=== PATIENT | female | born 1950 | race Caucasian/White ===

== ENCOUNTER → 2018-03-19 | Emergency (ER) | payer MEDICARE ==
[~2018-03-19] VITALS: Ht 162.6 cm; Wt 68.0 kg
[~2018-03-19] MED LIST: ASPIRIN81 MG PO; FAMOTIDINE 20 MG/2 ML VIAL IV STA; LIPITOR10 MG PO; LISINOPRIL10 MG PO; MAGNESIUM/ALUMINUM/SIMETHICONE 30 ML UDC PO ONE; MORPHINE SULFATE 2 MG/ML SYR ONE; MORPHINE SULFATE 4 MG/ML SYR IV ONE; ONDANSETRON HCL INJ 2 MG/ML VIAL IV STA; SODIUM CHLORIDE 0.9% 1000ML 1,000 ML IV ONE; SUCRALFATE 1 GM TAB PO NR
[2018-03-19 13:25] LABS: BASOPHILS % 0.3 % (0.0-1.0); EOSINOPHILS # (AUTO) 0.1 (0.0-0.4); EOSINOPHILS % 0.8 % (0.0-6.0); HEMATOCRIT 35.2 % (34.2-44.1); LYMPHOCYTES # (AUTO) 1.4 (1.0-3.2); LYMPHOCYTES % 13.7 % (18.0-39.1); MEAN CORPUSCULAR HEMOGLOBIN 27.3 pg (28-32); MEAN CORPUSCULAR HGB CONC 33.8 g/dL (31-35); MEAN CORPUSCULAR VOLUME 80.7 fL (81-99); MONOCYTES # (AUTO) 0.8 (0.2-0.8); NEUTROPHILS # (AUTO) 7.9 (2.1-6.9); NEUTROPHILS % 76.9 % (38.7-80.0); PLATELET COUNT 289 x10e3/uL (140-360); RED BLOOD COUNT 4.36 x10e6/uL (3.6-5.1); RED CELL DISTRIBUTION WIDTH 15.7 % (11.7-14.4)
[2018-03-19 13:29] LABS: HEMOGLOBIN 11.9 g/dL (12.0-16.0); INR 1.13; PROTHROMBIN TIME 13.6 seconds (11.9-14.5)
[2018-03-19 13:40] LABS: ALBUMIN 2.8 g/dL (3.5-5.0); ALBUMIN/GLOBULIN RATIO 0.6 (0.8-2.0); ANION GAP 13.7 mmol/L (8-16); CALCIUM 9.7 mg/dL (8.4-10.2); CREATININE, SERUM 1.12 mg/dL (0.57-1.11); POTASSIUM 3.7 mmol/L (3.5-5.1)
--- NOTE | 2018-03-19 14:09 | Diagnostic Imaging Report ---
PROCEDURE:X-RAY ABDOMEN, ACUTE SERIES COMPARISON:Patients [facility], DX, CHEST SINGLE (PORTABLE), 04/28/2017, 9:16. [facility], CT, CT ABDOMEN/PELVIS W, 04/26/2017, 20:11. INDICATIONS:abdomen pain, epigastric pain FINDINGS: BOWEL GAS PATTERN:Non-specific bowel gas pattern. No dilated, air-filled loops of bowel. FREE AIR:None. CALCIFICATIONS:No calcifications overlie the renal shadows or expected course of the ureters or bladder. Left pelvic phleboliths. Vascular calcifications. LUNGS:Stable. 8mm calcified granuloma in the left lower lung. No consolidation or effusion. MEDIASTINUM:Cardiac silhouette is upper limit of normal to borderline enlarged. Atherosclerotic calcification of the aortic arch. Pulmonary vasculature is normal. PLEURA:No effusion, or pneumothorax. OTHER:No acute bony abnormalities. Mild degenerative changes in bilateral hip joints. Rightward curvature of the thoracic spine, which may be positional. CONCLUSION: 1. Nonobstructive bowel gas pattern. No air-filled, dilated loops of bowel. 2. Upper limit of normal to borderline enlarged cardiac silhouette. Essentially clear lungs. Bandar Hernandez M.D. Dictated by: Bandar Hernandez M.D. on 03/19/2018 at 14:12 Electronically approved by: Bandar Hernandez M.D. on 03/19/2018 at 14:12
[2018-03-19 15:43] VITALS: BP 154/75
== END | disposition home or self-care (01) ==
LOC: ER 11:47
CPT/HCPCS: 36415; 74022; 80053; 83690; 84484; 85025; 85610; 93005; 99284; J2270; J7030

== ENCOUNTER 2018-04-29 13:41 | Emergency (ER) | payer MEDICARE ==
[~2018-04-29] VITALS: Ht 162.6 cm; Wt 68.0 kg
[~2018-04-29 13:41] MED LIST changes: -FAMOTIDINE 20 MG/2 ML VIAL IV STA; -MAGNESIUM/ALUMINUM/SIMETHICONE 30 ML UDC PO ONE; -MORPHINE SULFATE 2 MG/ML SYR ONE; -MORPHINE SULFATE 4 MG/ML SYR IV ONE; -ONDANSETRON HCL INJ 2 MG/ML VIAL IV STA; -SODIUM CHLORIDE 0.9% 1000ML 1,000 ML IV ONE; -SUCRALFATE 1 GM TAB PO NR
[2018-04-29] MEDS ORDERED: ONDANSETRON HCL INJ 2 MG/ML VIAL IV STA (18:34)
[2018-04-29 18:39] LABS: BASOPHILS # (AUTO) 0.1 (0.0-0.1); BASOPHILS % 0.6 % (0.0-1.0); EOSINOPHILS # (AUTO) 0.2 (0.0-0.4); HEMATOCRIT 40.5 % (34.2-44.1); HEMOGLOBIN 13.7 g/dL (12.0-16.0); LYMPHOCYTES # (AUTO) 1.9 (1.0-3.2); LYMPHOCYTES % 23.4 % (18.0-39.1); MEAN CORPUSCULAR HEMOGLOBIN 27.7 pg (28-32); MEAN CORPUSCULAR HGB CONC 33.8 g/dL (31-35); MEAN CORPUSCULAR VOLUME 81.8 fL (81-99); MONOCYTES # (AUTO) 0.4 (0.2-0.8); MONOCYTES % 5.6 % (4.4-11.3); NEUTROPHILS # (AUTO) 5.4 (2.1-6.9); PLATELET COUNT 383 x10e3/uL (140-360); RED BLOOD COUNT 4.95 x10e6/uL (3.6-5.1); RED CELL DISTRIBUTION WIDTH 15.4 % (11.7-14.4)
[2018-04-29 18:42] LABS: CLARITY,URINE SL CLOUDY (CLEAR); COLOR,URINE YELLOW (YELLOW); LEUKOCYTE ESTERASE ,URINE TRACE (NEGATIVE); NITRITE,URINE POSITIVE (NEGATIVE); PROTEIN,URINE DIPSTICK 1+ (NEGATIVE)
[2018-04-29 18:43] LABS: BILIRUBIN,URINE NEGATIVE (NEGATIVE); KETONES,URINE TRACE (NEGATIVE); URINE UROBILINOGEN 0.2 mg/dL (0.2 - 1)
[2018-04-29 18:54] LABS: BACTERIA,URINE MANY /HPF; EPITHELIAL CELLS,URINE RARE /LPF; MUCUS,URINE FEW (RARE); WBC,URINE (MAN) 21-50 /HPF (0-5)
[2018-04-29 18:55] LABS: ALBUMIN 3.6 g/dL (3.5-5.0); ALBUMIN/GLOBULIN RATIO 0.9 (0.8-2.0); ANION GAP 16.2 mmol/L (8-16); CHOL/HDL RATIO 5.7 (3.0-3.6); CREATININE, SERUM 1.24 mg/dL (0.57-1.11); POTASSIUM 4.2 mmol/L (3.5-5.1)
[2018-04-29 19:01] LABS: CREATINE KINASE MB 0.8 ng/mL (0-5.0)
[2018-04-29] MEDS ORDERED: MORPHINE SULFATE 2 MG/ML SYR IV STA (19:40)
[2018-04-29] MEDS ORDERED: DICYCLOMINE HCL 20 MG/2 ML VIAL IM ONE (19:45)
[2018-04-29] MEDS ORDERED: PANTOPRAZOLE 40 MG 10ML VIAL IV STA (20:01)
[2018-04-29] MEDS ORDERED: CEFTRIAXONE SOD 1 GM VIAL IV ONE (20:15)
--- NOTE | 2018-04-29 21:32 | Diagnostic Imaging Report ---
EXAM: Right Upper Quadrant Ultrasound INDICATION: Right upper quadrant pain. COMPARISON: None. TECHNIQUE: Transverse and longitudinal images of the right upper abdomen were obtained. FINDINGS: Liver: Size: 13 cm in the right midclavicular line, normal Appearance: Normal echogenicity, smooth contour Mass: No focal masses Gallbladder: Stones/Sludge: Small amount of sludge noted in the most dependent portion and appears mobile Wall: 0.3 cm Appearance: No wall thickening, pericholecystic fluid or hydrops. Sonographic Alvarez's Sign: Negative Bile Ducts: Intrahepatic Ducts: No dilatation Extrahepatic Ducts: Common bile duct measures 0.4 cm, no dilatation Pancreas: Incompletely visualized due to overlying bowel gas, but no abnormality identified involving the visualized portions of the pancreas. Kidneys: Length: Right 8.6 cm Echogenicity: Normal Collecting System: No hydronephrosis Stone: None Cyst/Mass: None Vessels: Aorta: Visualized portions are normal Inferior Vena Cava: Visualized portions are normal Main Portal Vein: 1.0 cm, normal size with hepatopetal flow. Free Fluid: No ascites or pleural effusion IMPRESSION: 1. Gallbladder sludge. 2. Otherwise unremarkable right upper quadrant ultrasound Signed by: Dr. Fred Flores M.D. on 04/29/2018 9:29 PM
--- OUTSIDE RECORDS SUMMARY | 2018-08-07 14:34 | XMS REPORT ---
Author Author [facility] Address Unknown Phone Unavailable Care Team Providers Care Quality Review Trainer Name Role Phone NAHOMY KRISHNAMURTHY Unavailable Unavailable PATRICK BRADLEY Unavailable Unavailable JIMMY DOBBINS Unavailable Unavailable Problems This patient has no known problems. Allergies, Adverse Reactions, Alerts This patient has no known allergies or adverse reactions. Medications This patient has no known medications. Results Test Description Test Time Test Comments Text Results Atomic Results Result Comments HEPTOBILIARY W PHARM 2018-05-07 19:08:00 [place] [address] Patient Name: STEFAN IRIZARRY MR #: [id number] : 1950 Age/Sex: 68/F Req #: [id number] Adm Physician: NAHOMY KRISHNAMURTHY MD Ordered by : NAHOMY KRISHNAMURTHY MD Report #: [id number] Location: MED/SURG3 Room/Bed: [facility] Procedure: [id number] NM/HEPTOBILIARY W PHARM Exam Date: Exam Time: REPORT STATUS: Signed Hepatobiliary Scan with Gallbladder Ejection Fraction Clinical information : 68 F with biliary colic and severe abdominal pain x2 weeks with nausea and bloating. Gallbladder sludge seen on abdominal ultrasound 04/29/2018. Technique: Following intravenous administration of 7 millicuries of Tc-99m mebrofenin, dynamic images of the abdomen in the anterior projection were obtained through 60 minutes. Sincalide (CCK analog) 1.4 micrograms was administered intravenously over 30 minutes with additional imaging for determination of gallbladder ejection fraction. Discussion: Perfusion of the liver is normal. Extraction of tracer by the liver parenchyma is normal. Tracer appears promptly within the biliary tract. The gallbladder begins to fill at 16 minutes post injection of tracer and fills adequately. Tracer is seen in the small bowel promptly during the sincalide infusion. There is no contractile response by the gallbladder to the pharmacologic dose of sincalide. No emptying of the gallbladder occurs during the 30 minute infusion. Impression: 1. Filling of the gallbladder excludes acute cystic duct obstruction/acute cholecystitis. 2. The gallbladder ejection fraction is undefined as there is no emptying of the gallbladder during the infusion of sincalide. This absence of a contractile response to sincalide supports the clinical diagnosis of chronic cholecystitis/ gallbladder dyskinesia. Signed by: Dr. Mauro Purvis M.D. on 05/07/2018 7:10 PM Dictated By: MAURO PURVIS MD 09 Transcribed By: KEYA on 05/07/181909 COPY TO: NAHOMY KRISHNAMURTHY MD CT ABDOMEN/PELVIS W 2018-05-06 20:48:00 [place] [address] Patient Name: STEFAN IRIZARRY MR #: [id number] : 1950 Age/Sex: 68/F Req #: [id number] Adm Physician: NAHOMY KRISHNAMURTHY MD Ordered by : KEO JASSO MD Report #: [id number] Location: [facility] Room/Bed: [place] [address] Procedure: [id number] CT/CT ABDOMEN/PELVIS W Exam Date: 05/06/18 Exam Time: 2009 REPORT STATUS: Signed CT Abdomen And Pelvis with Intravenous Contrast INDICATION: Upper abdominal pain and nausea for 2 weeks TECHNIQUE: Thin collimation axial images obtained from the diaphragm to the level of the pubic symphysis following the uneventful administration of 100 and cc of low osmolar, nonionic intravenous contrast. RADIATION DOSE: Total DLP: 303.21 mGy*cm Estimated effective dose: (DLP x 0.015 x size factor) mSv CTDIvol has been reviewed. It is below the limits set by the Radiation Protocol Committee (RPC). COMPARISON: CT abdomen/pelvis 04/26/2017. Right upper quadrant ultrasound 04/29/2018 ABDOMEN FINDINGS: Lung Bases: Calcified granuloma in the right lower lobe measures 7 mm. There is bibasilar subsegmental atelectasis. Visualized portion of the mediastinum demonstrates moderate burden of coronary artery calcification. Liver: Normal attenuation. Multiple low attenuating lesions throughout the parenchyma measure up to 6 mm and are stable. Gallbladder: Present and appears normal.. No biliary ductal dilatation. Pancreas: Mild fatty atrophy. No mass or ductal dilatation. Spleen: Normal size and contains calcified granulomata. Adrenal Glands: No evidence for mass. Kidneys: Right: Normal enhancement. Lower pole cyst is stable. No enhancing mass. No hydronephrosis. Left: No enhancing mass. A cyst may be developing in the lower pole measuring 3 mm. No hydronephrosis. Lymph Nodes: No lymphadenopathy. Aorta: Fusiform dilatation of the infrarenal aorta measures 2.7 x 3.0 cm and is stable. There are diffuse calcifications throughout the aorta. PELVIS FINDINGS: Bowel: Stomach: Normal in caliber with normal wall thickness. Small Bowel: Normal in caliber with normal wall thickness. Large Bowel: Moderate stool burden in the large bowel. No focal mural thickening or pericolonic inflammation. Appendix: Not visualized and may be absent or collapsed. Bladder: Normal. The uterus is absent. No adnexal masses. No free fluid or fluid collection. Bones: Grade 1 retrolisthesis of L1 on L2 is stable. Mild degenerative changes of L1-2 are stable. Calcified Schmorl's node in the superior endplate of T11 is stable. Soft tissues: Unremarkable. IMPRESSION: 1. No evidence for bowel obstruction or inflammation. Moderate burden of stool in the large bowel may be the result of constipation. 2. Stable low attenuating hepatic lesions. 3. Stable infrarenal aortic aneurysm. 4. Healed granulomatous inflammation. Signed by: Dr. Loreta Jackman MD on 05/06/2018 8:54 PM Dictated By: LORETA JACKMAN MD 53 Transcribed By: KEYA on 12/23 COPY TO: KEO JASSO MD US GALLBLADDER 2018-04-29 21:27:00 [place] [address] Patient Name: STEFAN IRIZARRY MR #: [id number] : 1950 Age/Sex: 68/F Req #: [id number] Adm Physician: Ordered by: BEN VIVAS MD Report #: [id number] Location: ER Room/Bed: ___ Procedure: [id number] US/US GALLBLADDER Exam Date: 04/29/18 Exam Time: 2035 REPORT STATUS: Signed EXAM: Right Upper Quadrant Ultrasound INDICATION: Right upper quadrant pain. COMPARISON : None. TECHNIQUE: Transverse and longitudinal images of the right upper abdomen were obtained. FINDINGS: Liver: Size: 13 cm in the right midclavicular line, normal Appearance: Normal echogenicity, smooth contour Mass: No focal masses Gallbladder: Stones/Sludge: Small amount of sludge noted in the most dependent portion and appears mobile Wall: 0.3 cm Appearance: No wall thickening, pericholecystic fluid or hydrops. Sonographic Alvarez's Sign: Negative Bile Ducts: Intrahepatic Ducts: No dilatation Extrahepatic Ducts: Common bile duct measures 0.4 cm, no dilatation Pancreas: Incompletely visualized due to overlying bowel gas, but no abnormality identified involving the visualized portions of the pancreas. Kidneys: Length: Right 8.6 cm Echogenicity: Normal Collecting System: No hydronephrosis Stone: None Cyst/Mass: None Vessels: Aorta: Visualized portions are normal Inferior Vena Cava: Visualized portions are normal Main Portal Vein: 1.0 cm, normal size with hepatopetal flow. Free Fluid: No ascites or pleural effusion IMPRESSION: 1. Gallbladder sludge. 2. Otherwise unremarkable right upper quadrant ultrasound Signed by: Dr. Fred Flores M.D. on 04/29/2018 9:29 PM Dictated By: FRED CRESPO MD 28 Transcribed By: KEYA on 04/29/182128 COPY TO: BEN VIVAS MD ABDOMEN ACUTE SERIES W/PA CXR [place] [address] Patient Name: STEFAN IRIZARRY MR #: [id number] : 1950 Age/Sex: 67/F Req #: [id number] Adm Physician: Ordered by: JIMMY DOBBINS MD Report #: [id number] Location: ER Room/Bed: Procedure: [id number] DX/ABDOMEN ACUTE SERIES W/PA CXR Exam Date: Exam Time: REPORT STATUS: Signed PROCEDURE: X-RAY ABDOMEN, ACUTE SERIES COMPARISON: [facility], DX, CHEST SINGLE (PORTABLE), 04/28/2017, 9:16. [facility], CT, CT ABDOMEN/ PELVIS W, 04/26/2017, 20:11. INDICATIONS: abdomen pain, epigastric pain FINDINGS: BOWEL GAS PATTERN: Non-specific bowel gas pattern. No dilated, air-filled loops of bowel. FREE AIR: None. CALCIFICATIONS: No calcifications overlie the renal shadows or expected course of the ureters or bladder. Left pelvic phleboliths. Vascular calcifications. LUNGS : Stable. 8mm calcified granuloma in the left lower lung. No consolidation or effusion. MEDIASTINUM: Cardiac silhouette is upper limit of normal to borderline enlarged. Atherosclerotic calcification of the aortic arch. Pulmonary vasculature is normal. PLEURA: No effusion, or pneumothorax. OTHER: No acute bony abnormalities. Mild degenerative changes in bilateral hip joints. Rightward curvature of the thoracic spine, which may be positional. CONCLUSION: 1. Nonobstructive bowel gas pattern. No air- filled, dilated loops of bowel. 2. Upper limit of normal to borderline enlarged cardiac silhouette. Essentially clear lungs. Ismael Hernandez M.D. Dictated by: Ismael Hernandez M.D. on 03/19/2018 at 14:12 Electronically approved by: Ismael Hernandez M.D. on 2017 at 14:12 Dictated By: ISMAEL HERNANDEZ MD 1412 Transcribed By: JHONY on 1412 COPY TO: JIMMY DOBBINS MD
== END 2018-04-29 22:41 | disposition home or self-care (01) ==
LOC: ER 13:41
DX: R10.13 Epigastric pain (principal); R11.0 Nausea; N30.91 Cystitis, unspecified with hematuria; K80.50 Calculus of bile duct without cholangitis or cholecystitis without obstruction
CPT/HCPCS: 36415; 76705; 80053; 80061; 81001; 82150; 82550; 82553; 83605; 83690; 84484; 85025; 87086; 87186; 93005; 99284; J0500; J0696; J2270; J2405

== ENCOUNTER 2018-05-06 16:57 | Inpatient (IN) | payer MEDICARE ==
[~2018-05-06] VITALS: Ht 162.6 cm; Wt 63.0 kg
[2018-05-06 17:20] LABS: BASOPHILS # (AUTO) 0.1 (0.0-0.1); BASOPHILS % 0.6 % (0.0-1.0); EOSINOPHILS # (AUTO) 0.1 (0.0-0.4); EOSINOPHILS % 1.3 % (0.0-6.0); HEMATOCRIT 39.6 % (34.2-44.1); HEMOGLOBIN 13.4 g/dL (12.0-16.0); LYMPHOCYTES # (AUTO) 2.1 (1.0-3.2); LYMPHOCYTES % 26.3 % (18.0-39.1); MEAN CORPUSCULAR HEMOGLOBIN 27.6 pg (28-32); MEAN CORPUSCULAR HGB CONC 33.8 g/dL (31-35); MEAN CORPUSCULAR VOLUME 81.5 fL (81-99); MONOCYTES # (AUTO) 0.4 (0.2-0.8); NEUTROPHILS # (AUTO) 5.3 (2.1-6.9); NEUTROPHILS % 66.5 % (38.7-80.0); PLATELET COUNT 458 x10e3/uL (140-360); RED BLOOD COUNT 4.86 x10e6/uL (3.6-5.1); RED CELL DISTRIBUTION WIDTH 14.9 % (11.7-14.4)
[2018-05-06] MEDS ORDERED: PANTOPRAZOLE 40 MG 10ML VIAL IV STA (17:20)
[2018-05-06] MEDS ORDERED: ONDANSETRON HCL INJ 2 MG/ML VIAL IV STA (17:20)
[2018-05-06] MEDS ORDERED: MORPHINE SULFATE 2 MG/ML SYR IV STA (17:20)
[2018-05-06 17:23] LABS: CLARITY,URINE CLOUDY (CLEAR); COLOR,URINE YELLOW (YELLOW)
[2018-05-06 17:24] LABS: BILIRUBIN,URINE NEGATIVE (NEGATIVE); KETONES,URINE NEGATIVE (NEGATIVE); LEUKOCYTE ESTERASE ,URINE TRACE (NEGATIVE); NITRITE,URINE NEGATIVE (NEGATIVE); PROTEIN,URINE DIPSTICK TRACE (NEGATIVE); URINE UROBILINOGEN 0.2 mg/dL (0.2 - 1)
[2018-05-06 17:25] LABS: PREGNANCY TEST, URINE NEGATIVE (NEGATIVE)
[2018-05-06] MEDS ORDERED: HYDRALAZINE HCL 20 MG/ML VIAL IV STA (17:32)
[2018-05-06 17:35] LABS: ALBUMIN 3.9 g/dL (3.5-5.0); ANION GAP 13.9 mmol/L (8-16); CALCIUM 10.1 mg/dL (8.4-10.2); INR 1.05; POTASSIUM 3.9 mmol/L (3.5-5.1); PROTHROMBIN TIME 12.9 seconds (11.9-14.5)
[2018-05-06 17:36] LABS: PARTIAL THROMBOPLASTIN TIME 28.7 seconds (23.8-35.5)
[2018-05-06 17:41] LABS: BACTERIA,URINE RARE /HPF; EPITHELIAL CELLS,URINE RARE /LPF
[2018-05-06 17:41] LABS: AMYLASE 47 U/L (25-125); LIPASE 24 U/L (8-78)
[2018-05-06] MEDS ORDERED: ENALAPRILAT IV INJ 1.25 MG/ML VIAL IV STA (17:46)
[2018-05-06] MEDS ORDERED: FENTANYL CITRATE/PF 100MCG/2 ML INJ IV ONE (18:30)
[2018-05-06] MEDS ORDERED: PIPER-TAZ 3.375 GM 50 ML IV ONE (18:45)
[2018-05-06 18:47] LABS: CREATINE KINASE MB 1.1 ng/mL (0-5.0)
[2018-05-06] MEDS: SODIUM CHLORIDE 0.9% 1000ML 1,000 ML IV SCH ×2 (20:37→22:20)
--- NOTE | 2018-05-06 20:58 | Diagnostic Imaging Report ---
CT Abdomen And Pelvis with Intravenous Contrast INDICATION: Upper abdominal pain and nausea for 2 weeks TECHNIQUE: Thin collimation axial images obtained from the diaphragm to the level of the pubic symphysis following the uneventful administration of 100 and cc of low osmolar, nonionic intravenous contrast. RADIATION DOSE: Total DLP: 303.21 mGy*cm Estimated effective dose: (DLP x 0.015 x size factor) mSv CTDIvol has been reviewed. It is below the limits set by the Radiation Protocol Committee (RPC). COMPARISON: CT abdomen/pelvis 04/26/2017. Right upper quadrant ultrasound 04/29/2018 ABDOMEN FINDINGS: Lung Bases: Calcified granuloma in the right lower lobe measures 7 mm. There is bibasilar subsegmental atelectasis. Visualized portion of the mediastinum demonstrates moderate burden of coronary artery calcification. Liver: Normal attenuation. Multiple low attenuating lesions throughout the parenchyma measure up to 6 mm and are stable. Gallbladder: Present and appears normal.. No biliary ductal dilatation. Pancreas: Mild fatty atrophy. No mass or ductal dilatation. Spleen: Normal size and contains calcified granulomata. Adrenal Glands: No evidence for mass. Kidneys: Right: Normal enhancement. Lower pole cyst is stable. No enhancing mass. No hydronephrosis. Left: No enhancing mass. A cyst may be developing in the lower pole measuring 3 mm. No hydronephrosis. Lymph Nodes: No lymphadenopathy. Aorta: Fusiform dilatation of the infrarenal aorta measures 2.7 x 3.0 cm and is stable. There are diffuse calcifications throughout the aorta. PELVIS FINDINGS: Bowel: Stomach: Normal in caliber with normal wall thickness. Small Bowel: Normal in caliber with normal wall thickness. Large Bowel: Moderate stool burden in the large bowel. No focal mural thickening or pericolonic inflammation. Appendix: Not visualized and may be absent or collapsed. Bladder: Normal. The uterus is absent. No adnexal masses. No free fluid or fluid collection. Bones: Grade 1 retrolisthesis of L1 on L2 is stable. Mild degenerative changes of L1-2 are stable. Calcified Schmorl's node in the superior endplate of T11 is stable. Soft tissues: Unremarkable. IMPRESSION: 1. No evidence for bowel obstruction or inflammation. Moderate burden of stool in the large bowel may be the result of constipation. 2. Stable low attenuating hepatic lesions. 3. Stable infrarenal aortic aneurysm. 4. Healed granulomatous inflammation. Signed by: Dr. Joe Jackman MD on 05/06/2018 8:54 PM
[2018-05-06 21:00] VITALS: BP 104/60
[2018-05-06 21:30] VITALS: BP 104/60
[2018-05-06] MEDS ORDERED: PIPER-TAZ 3.375 GM / NS 50ML IV SCH (22:00)
[2018-05-06] MEDS: PIPER-TAZ 3.375 GM 50 ML IV SCH (22:20)
[2018-05-06] MEDS ORDERED: IOPAMIDOL 370 MG/ML 200 ML INFUS..BTL INJ ONE (22:36)
[2018-05-06] MEDS ORDERED: SODIUM CHLORIDE 0.9% 50ML 50 ML ONE (22:37)
[2018-05-07] VITALS (8 sets, daily range): BP systolic 114–165; BP diastolic 60–81
[2018-05-07] MEDS: MORPHINE SULFATE 2 MG/ML SYR IV PRN ×4 (00:23→18:18)
[2018-05-07] MEDS ORDERED: METOPROLOL SUCC25 MG PO (02:31)
[2018-05-07] MEDS ORDERED: CEFDINIR300 MG PO (02:34)
[2018-05-07] MEDS: PIPER-TAZ 3.375 GM 50 ML IV SCH ×3 (06:05→22:00)
[2018-05-07 06:27] LABS: BASOPHILS % 0.8 % (0.0-1.0); EOSINOPHILS # (AUTO) 0.2 (0.0-0.4); EOSINOPHILS % 4.1 % (0.0-6.0); HEMATOCRIT 33.7 % (34.2-44.1); LYMPHOCYTES % 20.2 % (18.0-39.1); MEAN CORPUSCULAR HEMOGLOBIN 27.6 pg (28-32); MEAN CORPUSCULAR HGB CONC 32.6 g/dL (31-35); MEAN CORPUSCULAR VOLUME 84.5 fL (81-99); MONOCYTES # (AUTO) 0.4 (0.2-0.8); MONOCYTES % 7.8 % (4.4-11.3); NEUTROPHILS # (AUTO) 3.5 (2.1-6.9); NEUTROPHILS % 66.9 % (38.7-80.0); PLATELET COUNT 315 x10e3/uL (140-360); RED BLOOD COUNT 3.99 x10e6/uL (3.6-5.1); RED CELL DISTRIBUTION WIDTH 14.9 % (11.7-14.4)
[2018-05-07 06:51] LABS: ALBUMIN 2.9 g/dL (3.5-5.0); ALBUMIN/GLOBULIN RATIO 1.1 (0.8-2.0); CALCIUM 8.6 mg/dL (8.4-10.2); CREATININE, SERUM 0.95 mg/dL (0.57-1.11)
[2018-05-07] MEDS: PANTOPRAZOLE 40 MG 10ML VIAL IV SCH (09:29)
[2018-05-07] MEDS: ASPIRIN 81 MG CHEW TAB PO SCH (11:00)
[2018-05-07] MEDS: METOPROLOL SUCCINATE 25 MG TAB XL PO SCH (11:00)
[2018-05-07] MEDS: LISINOPRIL 20 MG TAB PO SCH (11:00)
--- NOTE | 2018-05-07 11:00 | History and Physical ---
CHIEF COMPLAINT: Abdominal pain. HISTORY OF PRESENT ILLNESS: This is a 68-year-old white woman who presented to [facility] Emergency Room with a 6-week history of worsening abdominal pain. The patient states she actually has had abdominal pain for the last 6 months, but it has become much more persistent in the last 6 weeks. The patient states the pain has become unbearable last week. The patient underwent an abdominal ultrasound on April 29, 2018, which revealed gallbladder sludge, otherwise unremarkable. Yesterday in the emergency room, the patient underwent a CT of the abdomen and pelvis with intravenous contrast that was unremarkable, but it did reveal moderate burden of stool in the large bowel that may be the result of constipation. It also revealed a stable infrarenal aortic aneurysm. The patient denies any chest pain or tenderness. The patient states the pain is mainly in the mid-epigastric area and does radiate to her back. The patient does complain of bloating and states the pain worsens after eating. Blood work done in the emergency room was unremarkable. The patient's hepatic transaminases are within normal limits. The patient's first 2 sets of cardiac enzymes were normal, namely troponin I. The patient's amylase and lipase were 47 and 24 respectively. The patient was admitted for further evaluation and treatment. REVIEW OF SYSTEMS GENERAL: Weight has been stable. No fever or chills. HEENT: No headache. No vision changes. CARDIOVASCULAR: No chest pain. No shortness of breath or cough. GI: Mid-epigastric pain has been present for the last 6 months, but has been worse for the last 6 weeks. Denies any nausea or vomiting, but does complain of postprandial pain as well as bloating. : No UTI symptoms. NEUROMUSCULAR: No limb weakness or numbness. ALLERGIES: NO KNOWN DRUG ALLERGIES. PAST MEDICAL HISTORY 1. Coronary artery disease (2 coronary stents placed in 2011). 2. Carotid atherosclerosis (history of right carotid endarterectomy). 3. Hypertensive heart disease. 4. Hyperlipidemia. 5. History of cerebrovascular disease. 6. Tobacco abuse. 7. Chronic systolic congestive heart failure. 8. Non ST elevated myocardial infarction April 2017. SURGICAL HISTORY 1. Hysterectomy. 2. Right carotid endarterectomy. 3. Multiple coronary stent placement in 2011. FAMILY HISTORY: Her brother of a myocardial infarction at age 66. SOCIAL HISTORY: This woman is and lives with her . She does smoke tobacco. The patient states she drinks alcohol socially. Denies any illicit drug use. The patient states she is retired. HOME MEDICATIONS 1. Aspirin 81 mg daily. 2. Atorvastatin 10 mg nightly. 3. Omnicef 300 mg b.i.d. 4. Lisinopril 20 mg daily. 5. Metoprolol succinate 25 mg daily. PHYSICAL EXAMINATION GENERAL: She is awake, alert and fully oriented. Her is at bedside. VITAL SIGNS: Height is 5 feet 4 inches, weight 139 pounds, BMI 23. Blood pressure is 139/72. Pulse is 64. Respiratory rate is 22. Oxygen saturation is 97% on room air. Temperature is 97.3. INTEGUMENT: Skin is warm and dry. No pallor, jaundice or diaphoresis. HEENT: Anicteric sclerae with dry mucous membranes. The patient does have coarse facies. NECK: Supple. No evidence of jugular venous distention. CARDIOVASCULAR: Distant heart sounds. Regular rate and rhythm. LUNGS: No rales, no rhonchi, no wheezing. ABDOMEN: Soft. She has exquisite tenderness in the mid-epigastric area. Minimal tenderness in the right upper quadrant area. Negative Alvarez sign. EXTREMITIES: No edema or deformity. NEUROLOGIC: Intact. DIAGNOSES 1. Gallbladder sludge. 2. Biliary dyskinesia, likely. 3. Mid-epigastric pain, perhaps gastric ulcer. 4. Coronary artery disease (multiple coronary stents placed in 2011). 5. Tobacco abuse. 6. Hypertensive heart disease. 7. Chronic systolic congestive heart failure. 8. Non ST elevated myocardial infarction April 2017. PLAN 1. Myocardial infarction was ruled out. 2. Continue aspirin, PRECIOUS inhibitor and beta tabitha since the patient has a history of coronary artery disease. 3. Order HIDA scan to assess for biliary dyskinesia or chronic cholecystitis. 4. Discontinue telemetry. 5. Will discuss with surgery. 6. Continue intravenous pantoprazole. 7. Pain control. I spent 45 minutes in the care of this patient. Job#: [id number] MEDNEZ
[2018-05-07] MEDS: SODIUM CHLORIDE 0.9% 1000ML 1,000 ML IV SCH ×2 (16:25→18:55)
--- NOTE | 2018-05-07 16:29 | Consultation ---
DATE OF CONSULTATION: May 07, 2018 CARDIOLOGY CONSULTATION HPI: Patient is a 68-year-old white female who is well known to our service, and has been seen in our clinic previously. She most recently had outpatient stress test given her abdominal pain and recurrent admissions, and previous history of coronary artery stents in the past. The stress test done as an outpatient was noted to be abnormal with ischemia in the inferior wall. The patient was to be scheduled for an outpatient coronary angiogram. However, she presented to the ER with abdominal pain and hypertensive urgency last night. REVIEW OF SYSTEMS GENERAL: No weight loss. No fevers or chills. HEENT: No headaches. No vision changes. No numbness or weakness. CARDIOVASCULAR: The patient has complained about intermittent abdominal discomfort, but no typical chest pain noted. No shortness of breath or cough. GI: She has had epigastric pain that has been worsening over the last 6 months, and more recently in the last 2 months. Has had several ER admissions. Denies nausea or vomiting, but does complain about worsening after a meal. : No urinary incontinence, dysuria or hematuria noted. PSYCH: No symptoms of anxiety, depression or suicidality noted. NEUROLOGICAL: No numbness, weakness, vision changes, or headaches noted. ALLERGIES: NO KNOWN ALLERGIES. PAST MEDICAL HISTORY 1. Coronary artery disease. The patient had 2 stents to the RCA placed in 2011. 2. Carotid artery disease with history of right carotid endarterectomy. 3. Hypertensive heart disease. 4. Hyperlipidemia. 5. History of tobacco use. 6. Chronic systolic congestive heart failure. SURGICAL HISTORY 1. Hysterectomy. 2. Right carotid endarterectomy. 3. Coronary stents placed in 2011. FAMILY HISTORY: Brother of an [place] at age 66. SOCIAL HISTORY: She is a current smoker. She drinks alcohol socially, but denies any drug use. HOME MEDICATIONS 1. Aspirin 81 mg daily. 2. Atorvastatin 10 mg nightly. 3. Lisinopril 20 mg daily. 4. Metoprolol succinate 25 mg daily. PHYSICAL EXAMINATION VITAL SIGNS: Temperature 97.8, pulse 63, respiratory rate 20, blood pressure 125/66, satting 96% on room air. GENERAL: The patient is awake and alert, and in no acute distress. CARDIOVASCULAR: Regular rate and rhythm. No murmurs, rubs or gallops noted. LUNGS: Clear to auscultation bilaterally. ABDOMEN: Soft but tender to palpation in the epigastric and right upper quadrant region with no rebound or guarding. EXTREMITIES: She has palpable distal pulses and no edema bilaterally. CURRENT CARDIAC MEDICATIONS 1. Lisinopril 20 mg daily. 2. Metoprolol succinate 25 mg daily. 3. Aspirin 81 mg daily. 4. Atorvastatin 20 mg at bedtime. LABS: Hematology: White blood cell count of 5.1, hemoglobin of 11, hematocrit of 33.7, and platelet count of 315,000. Chemistry: Sodium 139, potassium 4, chloride 111, carbon dioxide 22, BUN 22, creatinine 0.95, glucose 85. CK 55, CK-MB fraction 1.1, troponin 0.036. IMAGING: CT of the abdomen and pelvis reviewed, and shows no evidence of bowel obstruction or inflammation. Stable infrarenal aortic aneurysm measuring 2.7 x 3 cm and biliary sludge. EKG reviewed with no acute ST-T changes suggestive of ischemia. Telemetry reviewed and shows sinus rhythm. ASSESSMENT AND PLAN 1. Epigastric pain. 2. Coronary artery disease: Status post multiple stents in 2011. 3. Peripheral arterial disease. 4. Infrarenal aortic aneurysm, 2.7 x 3 cm. 5. Cerebrovascular disease. 6. Positive stress test. 7. Abdominal pain. PLAN: Patient's blood pressure is now better controlled now that her abdominal pain is under better control. She is being evaluated for possible cholecystectomy either as an inpatient or an outpatient. Given her recent positive stress test, we were planning on doing a coronary angiography, which the patient is scheduled for May 09, 2018, at 1 p.m. Continue current cardiovascular medication regimen as indicated above pending coronary angiography on May 09, 2018, at 1 p.m. Job#: [id number] AVINASH
--- NOTE | 2018-05-07 19:13 | Diagnostic Imaging Report ---
Hepatobiliary Scan with Gallbladder Ejection Fraction Clinical information: 68 F with biliary colic and severe abdominal pain x2 weeks with nausea and bloating. Gallbladder sludge seen on abdominal ultrasound 04/29/2018. Technique: Following intravenous administration of 7 millicuries of Tc-99m mebrofenin, dynamic images of the abdomen in the anterior projection were obtained through 60 minutes. Sincalide (CCK analog) 1.4 micrograms was administered intravenously over 30 minutes with additional imaging for determination of gallbladder ejection fraction. Discussion: Perfusion of the liver is normal. Extraction of tracer by the liver parenchyma is normal. Tracer appears promptly within the biliary tract. The gallbladder begins to fill at 16 minutes post injection of tracer and fills adequately. Tracer is seen in the small bowel promptly during the sincalide infusion. There is no contractile response by the gallbladder to the pharmacologic dose of sincalide. No emptying of the gallbladder occurs during the 30 minute infusion. Impression: 1. Filling of the gallbladder excludes acute cystic duct obstruction/acute cholecystitis. 2. The gallbladder ejection fraction is undefined as there is no emptying of the gallbladder during the infusion of sincalide. This absence of a contractile response to sincalide supports the clinical diagnosis of chronic cholecystitis/gallbladder dyskinesia. Signed by: Dr. Noemi Purvis M.D. on 05/07/2018 7:10 PM
[2018-05-07] MEDS ORDERED: ATORVASTATIN 10 MG TAB PO SCH (21:00)
[2018-05-07] MEDS: ATORVASTATIN 20 MG TAB PO SCH (21:55)
[2018-05-08] VITALS (9 sets, daily range): BP systolic 132–155; BP diastolic 66–83
[2018-05-08] MEDS: MORPHINE SULFATE 2 MG/ML SYR IV PRN ×6 (00:54→22:12)
[2018-05-08] MEDS: SODIUM CHLORIDE 0.9% 1000ML 1,000 ML IV SCH ×2 (02:55→08:18)
[2018-05-08] MEDS: PIPER-TAZ 3.375 GM 50 ML IV SCH ×3 (05:12→21:46)
[2018-05-08 06:57] LABS: ALANINE AMINOTRANSFERASE 8 IU/L (0-55); ALBUMIN 2.6 g/dL (3.5-5.0); ALKALINE PHOSPHATASE 77 IU/L (40-150); AMYLASE 33 U/L (25-125); ANION GAP 9.7 mmol/L (8-16); BLOOD UREA NITROGEN 17 mg/dL (7-26); BUN/CREATININE RATIO 20 (6-25); CALCIUM 8.1 mg/dL (8.4-10.2); CARBON DIOXIDE 20 mmol/L (22-29); CHLORIDE 112 mmol/L (98-107); CREATININE, SERUM 0.86 mg/dL (0.57-1.11); EST GLOMERULAR FILTRATION RATE > 60 ML/MIN (60-); GLUCOSE 88 mg/dL (74-118); LIPASE 11 U/L (8-78); POTASSIUM 3.7 mmol/L (3.5-5.1); SODIUM 138 mmol/L (136-145)
[2018-05-08 07:07] LABS: BASOPHILS % 0.8 % (0.0-1.0); EOSINOPHILS # (AUTO) 0.3 (0.0-0.4); EOSINOPHILS % 5.8 % (0.0-6.0); HEMATOCRIT 31.6 % (34.2-44.1); HEMOGLOBIN 10.4 g/dL (12.0-16.0); LYMPHOCYTES # (AUTO) 1.5 (1.0-3.2); LYMPHOCYTES % 31.7 % (18.0-39.1); MEAN CORPUSCULAR HEMOGLOBIN 28.1 pg (28-32); MEAN CORPUSCULAR HGB CONC 32.9 g/dL (31-35); MEAN CORPUSCULAR VOLUME 85.4 fL (81-99); MONOCYTES # (AUTO) 0.4 (0.2-0.8); MONOCYTES % 7.7 % (4.4-11.3); NEUTROPHILS # (AUTO) 2.6 (2.1-6.9); NEUTROPHILS % 53.6 % (38.7-80.0); PLATELET COUNT 288 x10e3/uL (140-360); RED CELL DISTRIBUTION WIDTH 15.1 % (11.7-14.4)
[2018-05-08] MEDS: LISINOPRIL 20 MG TAB PO SCH (08:18)
[2018-05-08] MEDS: METOPROLOL SUCCINATE 25 MG TAB XL PO SCH (08:18)
[2018-05-08] MEDS: PANTOPRAZOLE 40 MG 10ML VIAL IV SCH (08:18)
[2018-05-08] MEDS: ASPIRIN 81 MG CHEW TAB PO SCH (08:18)
[2018-05-08] MEDS ORDERED: LISINOPRIL 10 MG TAB PO SCH (09:00)
[2018-05-08 09:25] LABS: CHOL/HDL RATIO 6.6 (3.0-3.6)
--- NOTE | 2018-05-08 14:16 | Progress Note ---
DATE: May 08, 2018 SUBJECTIVE AND OVERNIGHT EVENTS: No major events overnight. Patient had her HIDA scan yesterday, which showed poor gallbladder emptying consistent with chronic cholecystitis. Patient is planned for cholecystectomy once her cardiac workup is completed and risk assessment is done. Overnight, patient had some abdominal pain but otherwise denies any chest pain, shortness of breath, dizziness, or any other cardiac symptoms. REVIEW OF SYSTEMS: As stated above, otherwise negative. PHYSICAL EXAMINATION VITAL SIGNS: Temperature 97.5, heart rate 63, respiratory rate 18, blood pressure 145/68 with an O2 saturation of 98% on room air. GENERAL: Patient is well developed, well nourished. CARDIOVASCULAR: Her PMI is nondisplaced. Heart rate regular. Normal S1 and S2. No murmur, rubs or gallops noted. Diminished carotid pulses bilaterally. She has a palpable femoral pulse bilaterally, palpable pedal pulses bilaterally. No peripheral edema or varicosities noted. RESPIRATORY: She is in no respiratory distress, and her lungs are clear to auscultation bilaterally. ABDOMEN: Her abdomen is soft, mildly tender especially epigastric and right upper quadrant. No masses or hepatosplenomegaly noted. NEUROLOGIC AND PSYCH: Patient is alert and oriented to person, place and time and displays a normal affect. CARDIOVASCULAR MEDICATIONS: Patient is on lisinopril 20 mg daily, metoprolol succinate 25 mg daily, aspirin 81 mg daily, atorvastatin 20 mg at bedtime. LABS: White blood cell count 4.8, hemoglobin 10.4 and platelet count of 288. Chemistry: Sodium 138, potassium 3.7, chloride 112, carbon dioxide 20, BUN 17, creatinine 0.86, GFR greater than 60, glucose 88. Triglycerides 131, cholesterol 172, LDL cholesterol 120, HDL cholesterol 26. Amylase 33, lipase 11. IMAGING: HIDA scan shows that there is no emptying of the gallbladder during the infusion. This absence of a contractile response to sincalide supports the clinical diagnosis of chronic cholecystitis. Telemetry data reviewed. No telemetry events. Normal sinus rhythm with rare PACs. No other new cardiac studies to review. ASSESSMENT 1. Epigastric pain. 2. Coronary artery disease status post multiple stents in 2011. 3. Peripheral artery disease. 4. Infrarenal aortic aneurysm 2.7 x 3 cm. 5. Cerebrovascular disease status post carotid endarterectomy on the right. 6. Positive stress test. 7. Abdominal pain. PLAN: We are planning on doing a coronary angiography, which is scheduled for tomorrow May 09, 2018, at 1 p.m. to risk-stratify her given the recent positive stress test prior to her cholecystectomy. Will update with the results of the test tomorrow. Currently patient is stable from a cardiovascular perspective. Recommend continuing the above medications. Job#: [id number] EV
[2018-05-08] MEDS: ATORVASTATIN 20 MG TAB PO SCH (21:46)
[2018-05-09] VITALS (18 sets, daily range): BP systolic 134–191; BP diastolic 70–111
[2018-05-09] MEDS: MORPHINE SULFATE 2 MG/ML SYR IV PRN ×3 (03:35→21:20)
[2018-05-09] MEDS: PIPER-TAZ 3.375 GM 50 ML IV SCH ×3 (05:00→22:18)
[2018-05-09 05:26] LABS: BASOPHILS % 0.7 % (0.0-1.0); EOSINOPHILS # (AUTO) 0.4 (0.0-0.4); EOSINOPHILS % 7.6 % (0.0-6.0); HEMATOCRIT 33.3 % (34.2-44.1); HEMOGLOBIN 10.8 g/dL (12.0-16.0); LYMPHOCYTES # (AUTO) 2.1 (1.0-3.2); LYMPHOCYTES % 37.2 % (18.0-39.1); MEAN CORPUSCULAR HEMOGLOBIN 27.8 pg (28-32); MEAN CORPUSCULAR HGB CONC 32.4 g/dL (31-35); MEAN CORPUSCULAR VOLUME 85.8 fL (81-99); MONOCYTES # (AUTO) 0.4 (0.2-0.8); MONOCYTES % 6.5 % (4.4-11.3); NEUTROPHILS # (AUTO) 2.7 (2.1-6.9); NEUTROPHILS % 47.8 % (38.7-80.0); PLATELET COUNT 292 x10e3/uL (140-360); RED BLOOD COUNT 3.88 x10e6/uL (3.6-5.1); RED CELL DISTRIBUTION WIDTH 14.9 % (11.7-14.4)
[2018-05-09 06:01] LABS: ALANINE AMINOTRANSFERASE 10 IU/L (0-55); ALBUMIN 2.9 g/dL (3.5-5.0); ALKALINE PHOSPHATASE 79 IU/L (40-150); ANION GAP 11.1 mmol/L (8-16); BLOOD UREA NITROGEN 12 mg/dL (7-26); BUN/CREATININE RATIO 13 (6-25); CALCIUM 8.8 mg/dL (8.4-10.2); CARBON DIOXIDE 22 mmol/L (22-29); CHLORIDE 114 mmol/L (98-107); CREATININE, SERUM 0.92 mg/dL (0.57-1.11); EST GLOMERULAR FILTRATION RATE > 60 ML/MIN (60-); GLUCOSE 82 mg/dL (74-118); POTASSIUM 4.1 mmol/L (3.5-5.1); SODIUM 143 mmol/L (136-145)
[2018-05-09] MEDS: PANTOPRAZOLE SOD 40 MG TABEC PO SCH (07:30)
[2018-05-09] MEDS: METOPROLOL SUCCINATE 25 MG TAB XL PO SCH (08:30)
[2018-05-09] MEDS: LISINOPRIL 20 MG TAB PO SCH (08:30)
[2018-05-09] MEDS: ASPIRIN 81 MG CHEW TAB PO SCH (09:00)
[2018-05-09] MEDS ORDERED: LIDOCAINE HCL 2% LOCAL 20 ML VIAL ONE (12:31)
[2018-05-09] MEDS ORDERED: IOPAMIDOL 370 MG/ML 200 ML INFUS..BTL INJ ONE ×2 (12:32→14:14)
[2018-05-09] MEDS ORDERED: HEPARIN SOD/SOD CHLORIDE 2,000 ML ONE (12:32)
[2018-05-09] MEDS ORDERED: VERAPAMIL HCL 2.5 MG/ML 2 ML VIAL ONE (13:07)
[2018-05-09] MEDS ORDERED: HEPARIN SOD (PORCINE) 1000 UNIT/ML 30ML ONE (13:07)
[2018-05-09] MEDS ORDERED: MIDAZOLAM HCL 2 MG/2 ML VIAL ONE (13:08)
[2018-05-09] MEDS ORDERED: FENTANYL CITRATE/PF 100MCG/2 ML INJ ONE (13:08)
[2018-05-09] MEDS ORDERED: NITROGLYCERIN/D5W 200 MCG/ML 250 ML ONE (13:09)
[2018-05-09] MEDS ORDERED: SODIUM CHLORIDE 0.9% 1000ML 1,000 ML ONE (13:09)
[2018-05-09] MEDS ORDERED: SODIUM CHLORIDE 0.9% 50ML 50 ML ONE (14:07)
[2018-05-09] MEDS ORDERED: ADENOSINE 3MG/1ML 30ML VIAL ONE (14:07)
[2018-05-09] MEDS ORDERED: LABETALOL HCL 20 ML ONE (16:51)
--- NOTE | 2018-05-09 17:15 | Progress Note ---
DATE: May 09, 2018 CARDIOLOGY PROGRESS NOTE SUBJECTIVE: No major events overnight. Patient continues to have mild abdominal discomfort. Is planning to undergo cholecystectomy tomorrow. Patient also underwent coronary angiography with FFR of the LAD through the right radial approach earlier today from a cardiology standpoint without any complications. REVIEW OF SYSTEMS: Patient denies any chest pain, shortness of breath or other cardiovascular symptoms overnight. Other than the abdominal pain, denies nausea, vomiting. Reports urinary urgency but otherwise no dysuria or hematuria noted. All other review of systems were negative. VITAL SIGNS: Heart rate 56, respiratory rate 16, blood pressure 180/84, saturations 98% on room air. PHYSICAL EXAMINATION GENERAL: In no acute distress, well developed and well nourished. CARDIOVASCULAR: PMI nondisplaced. Regular heart sounds. Normal S1 and S2. No murmurs, rubs, or gallops noted. Diminished carotid pulses bilaterally. Palpable femoral pulses bilaterally as well as pedal pulses bilaterally. No peripheral edema or varicosities noted. RESPIRATORY: No respiratory distress. LUNGS: Clear to auscultation bilaterally. ABDOMEN: Soft, mildly tender in the epigastric and right upper quadrant with no rebound or guarding. No masses or hepatosplenomegaly noted. NEURO AND PSYCH: Patient is alert and oriented to person, place and time and has a normal affect. CARDIOVASCULAR MEDICATIONS 1. Aspirin 81 mg daily. 2. Lisinopril 20 mg daily. 3. Metoprolol succinate 25 mg daily. 4. Atorvastatin 20 mg at bedtime. LABS: All laboratory data was reviewed. No significant abnormalities noted today. IMAGING: Imaging data reviewed. No new imaging data to review today. CARDIOVASCULAR STUDIES: Cardiac cath. Patient underwent a cardiac cath earlier today performed by myself. Pertinent findings of SURGERY MANAGER occlusion of right coronary artery, 60% lesion in the proximal LAD and a 50% lesion in the proximal circumflex. FFR of the LAD was performed to evaluate for any hemodynamic significance to this intermediate lesion and was noted to be normal requiring no further intervention at this time. ASSESSMENT 1. Epigastric pain. 2. Coronary artery disease status post multiple stents in 2011. 3. Peripheral arterial disease. 4. Infrarenal aortic aneurysm 2.7 x 3 cm. 5. Cerebrovascular disease status post carotid endarterectomy on the right. 6. Positive stress test. 7. Abdominal pain. PLAN: Coronary angiography completed today without any complications. Based on the results of the coronary angiography, patient is okay to proceed with her cholecystectomy without need for any further cardiac interventions or studies at this time. Patient will be at intermediate risk for perioperative cardiovascular events for this low to intermediate risk surgery. This risk is unmodifiable and cannot be lowered with any further intervention or evaluation. Will continue to follow the patient through the perioperative period for any cardiovascular complications. Thank you for this consult. We will continue to follow. Job#: [id number] SEAMUS
[2018-05-09] MEDS ORDERED: MORPHINE SULFATE 2 MG/ML SYR ONE (18:03)
[2018-05-09] MEDS ORDERED: FUROSEMIDE INJ 10 MG/ML 4 ML VIAL ONE (18:28)
[2018-05-09] MEDS ORDERED: DIPHENHYDRAMINE HCL INJ 50 MG/ML VIAL ONE (18:40)
[2018-05-09] MEDS ORDERED: DIPHENHYDRAMINE HCL INJ 50 MG/ML VIAL IV ONE (18:45)
[2018-05-09] MEDS ORDERED: ATORVASTATIN 20 MG TAB PO SCH (21:00)
[2018-05-09] MEDS: ATORVASTATIN 40 MG TAB PO SCH (21:20)
[2018-05-09] MEDS: DIPHENHYDRAMINE HCL INJ 50 MG/ML VIAL IV PRN (21:20)
[2018-05-10] VITALS (7 sets, daily range): BP systolic 107–140; BP diastolic 57–71
[2018-05-10] MEDS: DIPHENHYDRAMINE HCL INJ 50 MG/ML VIAL IV PRN ×2 (03:58→23:56)
[2018-05-10] MEDS: MORPHINE SULFATE 2 MG/ML SYR IV PRN (03:58)
[2018-05-10 05:25] LABS: BASOPHILS % 0.5 % (0.0-1.0); EOSINOPHILS # (AUTO) 0.3 (0.0-0.4); EOSINOPHILS % 5.2 % (0.0-6.0); HEMATOCRIT 34.1 % (34.2-44.1); HEMOGLOBIN 11.4 g/dL (12.0-16.0); LYMPHOCYTES # (AUTO) 1.4 (1.0-3.2); MEAN CORPUSCULAR HEMOGLOBIN 27.5 pg (28-32); MEAN CORPUSCULAR HGB CONC 33.4 g/dL (31-35); MEAN CORPUSCULAR VOLUME 82.2 fL (81-99); MONOCYTES # (AUTO) 0.4 (0.2-0.8); MONOCYTES % 6.9 % (4.4-11.3); NEUTROPHILS # (AUTO) 3.7 (2.1-6.9); NEUTROPHILS % 63.2 % (38.7-80.0); PLATELET COUNT 315 x10e3/uL (140-360); RED BLOOD COUNT 4.15 x10e6/uL (3.6-5.1); RED CELL DISTRIBUTION WIDTH 14.6 % (11.7-14.4)
[2018-05-10] MEDS: PIPER-TAZ 3.375 GM 50 ML IV SCH ×3 (05:29→22:16)
[2018-05-10 05:43] LABS: ANION GAP 14.4 mmol/L (8-16); CALCIUM 8.9 mg/dL (8.4-10.2); CREATININE, SERUM 1.15 mg/dL (0.57-1.11); POTASSIUM 3.4 mmol/L (3.5-5.1)
[2018-05-10] MEDS ORDERED: HYDROMORPHONE 1MG/1ML INJ IV STA (08:56)
[2018-05-10] MEDS: ASPIRIN 81 MG CHEW TAB PO SCH (09:00)
[2018-05-10] MEDS: ONDANSETRON HCL INJ 2 MG/ML VIAL IV PRN ×2 (09:14→17:32)
[2018-05-10] MEDS ORDERED: POTASSIUM CHLORIDE 20MEQ/100ML 200 ML IV ONE (09:15)
[2018-05-10] MEDS ORDERED: SODIUM CHLORIDE 0.9% 50ML 50 ML ONE (09:17)
[2018-05-10] MEDS ORDERED: BUPIVACAINE 0.5%/EPI 30 ML SDV INJ ONE (10:20)
--- NOTE | 2018-05-10 12:41 | Progress Note ---
DATE: May 10, 2018 CARDIOLOGY PROGRESS NOTE OVERNIGHT EVENTS AND SUBJECTIVE: Patient did well after cardiac catheterization yesterday. No problems with access site. No chest pain or shortness of breath overnight. Continues to have mild abdominal pain but is scheduled to undergo a laparoscopic cholecystectomy later this morning. OBJECTIVE/PHYSICAL EXAM VITAL SIGNS: Temperature 97.7, pulse rate 65, respiratory rate 20, blood pressure 140/71. Oxygen saturation 94% on room air. GENERAL: No acute distress. Well-developed and well-nourished female. CARDIOVASCULAR: PMI nondisplaced. Regular heart tones. Normal S1 and S2. No murmurs, rubs, or gallops noted. Diminished carotid pulses bilaterally. Palpable femoral pulses bilaterally as well as palpable pedal pulses bilaterally. No peripheral edema or varicosities noted. RESPIRATORY: Patient is in no respiratory distress. LUNGS: Clear to auscultation bilaterally. ABDOMEN: Soft, mildly tender in the epigastric and right upper quadrant with no rebound or guarding. No masses or hepatosplenomegaly noted. NEURO AND PSYCH: Patient is alert and oriented to person, place and time and has a normal affect. CARDIOVASCULAR MEDICATIONS 1. Aspirin 81 mg daily. 2. Lisinopril 20 mg daily. 3. Metoprolol succinate 25 mg daily. 4. Atorvastatin 20 mg at bedtime. LABS: Pertinent laboratory data was reviewed. Creatinine has gone up slight from 0.9 to 1.1. I will continue to monitor given that patient received x-ray dye yesterday. IMAGING: All imaging data reviewed. CARDIOVASCULAR STUDIES: Patient underwent a cardiac catheterization yesterday as noted in the note yesterday. Patient has multivessel coronary disease with STRUCTURAL IRON ERECTOR of the right coronary artery and 60% calcified lesion in the proximal LAD and 50% calcified lesion in the proximal circumflex. FFR of the LAD was performed to evaluate for any hemodynamic significance to the intermediate lesion and was noted to be negative requiring no further intervention at this time prior to surgery. ASSESSMENT 1. Epigastric pain. 2. Coronary artery disease status post multiple stents in 2011. 3. Peripheral artery disease. 4. Infrarenal aortic aneurysm 2.7 x 3 cm. 5. Cerebrovascular disease status post carotid endarterectomy to the right. 6. Positive stress test. 7. Abdominal pain. PLAN: Patient will undergo laparoscopic cholecystectomy today. From a cardiovascular standpoint patient will be at moderate risk for cardiovascular events in the perioperative period for this low to intermediate risk surgery. We will continue to monitor her for any cardiovascular complications in the perioperative period. Thank you for this consult. We will continue to follow. Job#: [id number] SEAMUS
[2018-05-10] MEDS ORDERED: FENTANYL CITRATE/PF 100MCG/2 ML INJ ONE ×2 (13:16→14:34)
[2018-05-10] MEDS: PANTOPRAZOLE SOD 40 MG TABEC PO SCH (14:22)
[2018-05-10] MEDS: ACETAMINOPHEN 1000 MG/100 ML IV PRN (14:22)
[2018-05-10] MEDS: SODIUM CHLORIDE 0.9% 1000ML 1,000 ML IV SCH (14:22)
[2018-05-10] MEDS: LISINOPRIL 20 MG TAB PO SCH (14:22)
[2018-05-10] MEDS: METOPROLOL SUCCINATE 25 MG TAB XL PO SCH (14:22)
[2018-05-10] MEDS ORDERED: MIDAZOLAM HCL 2 MG/2 ML VIAL ONE (14:34)
[2018-05-10] MEDS: HYDROCODONE/APAP 7.5MG-325MG 1 EA TAB PO PRN ×2 (14:57→22:48)
[2018-05-10] MEDS ORDERED: PROPOFOL IV EMULSION 10 MG/ML 20 ML VIAL ONE (15:02)
[2018-05-10] MEDS ORDERED: ROCURONIUM BROMIDE 10 MG/ML 5ML VIAL ONE (15:02)
[2018-05-10] MEDS ORDERED: DEXAMETHASONE SOD PHOS INJ 4 MG/ML VIAL ONE (15:02)
[2018-05-10] MEDS ORDERED: ONDANSETRON HCL INJ 2 MG/ML VIAL ONE (15:02)
[2018-05-10] MEDS ORDERED: SEVOFLURANE INHAL SOLN 250 ML PEN BTL ONE (15:02)
[2018-05-10] MEDS ORDERED: LIDOCAINE HCL 2% LOCAL INJ 5 ML SDV VIAL INJ ONE (15:02)
[2018-05-10] MEDS ORDERED: LABETALOL HCL 5 MG/ML 20ML VIAL ONE (15:02)
--- NOTE | 2018-05-10 15:23 | Operative Report ---
DATE OF PROCEDURE: May 10, 2018 PREOPERATIVE DIAGNOSIS: Cholecystitis. POSTOPERATIVE DIAGNOSIS: Cholecystitis. OPERATION PERFORMED: Laparoscopic cholecystectomy. ANESTHESIA: General. COMPLICATIONS: None. ESTIMATED BLOOD LOSS: Minimal. DESCRIPTION OF PROCEDURE: With the patient lying in bed in the supine position under good general anesthesia, the abdomen was prepped with Betadine solution and draped in the usual manner. A Veress needle was introduced into the umbilicus, and pneumoperitoneum was established without any difficulty. An 11 mm trocar was placed into the umbilicus, and a 10 mm video laparoscope was placed into the intraabdominal cavity. Under direct vision, three 5 mm trocars were placed in the right subcostal region. Video laparoscopy at this point revealed that the gallbladder was tensely distended and somewhat edematous. It was totally covered up with adhesions. The rest of the abdominal exploration was otherwise within normal limits. The adhesions of the gallbladder were then slowly and carefully taken down. The gallbladder had to be decompressed in order to properly grasp it, and this was done with a needle and the bile was aspirated. All of the adhesions to the gallbladder were then slowly and carefully taken down, all the way down to the neck. The peritoneum overlying the neck of the gallbladder was opened, and the cystic duct was identified. The cystic duct was then followed to its junction with the common duct. The cystic duct was then circumferentially dissected away from the common duct, doubly clipped and divided. The cystic artery was similarly doubly clipped and divided. The gallbladder was then slowly and carefully taken off of the liver bed using the cautery scissors, and perfect hemostasis was ascertained. The gallbladder was then grasped through the umbilical port and removed without any difficulty. Video laparoscopy was then again carried out. The liver bed was found to be perfectly dry. All of the excess fluid was aspirated. The pneumoperitoneum was evacuated, and all the trocars were removed under direct vision. The midline fascia at the umbilicus was then closed with a odfxxj-bu-dgfcv of 0 Vicryl. All layers were infiltrated on the way out with solution of 1/4 percent Marcaine. Subcutaneous tissue was approximated with 3-0 Vicryl, and the skin was closed with subcuticular 5-0 Vicryl. Benzoin, Steri-Strips and Band-Aids were applied. The sponge, lap and needle count was correct. The patient tolerated the procedure well and returned to the recovery room in stable condition. Job#: [id number] EV
[2018-05-10] MEDS: HYDROMORPHONE 1MG/1ML INJ IV PRN ×2 (17:32→21:46)
[2018-05-10] MEDS: ATORVASTATIN 40 MG TAB PO SCH (21:46)
[2018-05-11 00:23] VITALS: BP 132/63
[2018-05-11] MEDS: SODIUM CHLORIDE 0.9% 1000ML 1,000 ML IV SCH ×2 (01:50→11:53)
[2018-05-11] MEDS: HYDROMORPHONE 1MG/1ML INJ IV PRN ×2 (03:55→11:53)
[2018-05-11 05:02] VITALS: BP 173/84
[2018-05-11] MEDS: HYDROCODONE/APAP 7.5MG-325MG 1 EA TAB PO PRN ×2 (05:23→14:01)
[2018-05-11] MEDS: PIPER-TAZ 3.375 GM 50 ML IV SCH ×2 (05:45→13:57)
[2018-05-11] MEDS: ACETAMINOPHEN 1000 MG/100 ML IV PRN (06:46)
[2018-05-11] MEDS: ASPIRIN 81 MG CHEW TAB PO SCH (08:54)
[2018-05-11] MEDS: PANTOPRAZOLE SOD 40 MG TABEC PO SCH (08:54)
[2018-05-11 08:55] VITALS: BP 174/81
[2018-05-11] MEDS: METOPROLOL SUCCINATE 25 MG TAB XL PO SCH (08:55)
[2018-05-11] MEDS: LISINOPRIL 20 MG TAB PO SCH (08:55)
[2018-05-11 09:38] VITALS: BP 174/81
--- NOTE | 2018-05-11 11:50 | Progress Note ---
DATE: May 11, 2018 CARDIOLOGY PROGRESS NOTE SUBJECTIVE: Patient denies chest pain or shortness of breath. She is complaining of pain at her surgical site. OBJECTIVE VITAL SIGNS: Temperature 96.8 degrees, pulse 63, respiratory rate 18, blood pressure 174/81, oxygen saturation 96% on room air. GENERAL: Awake, alert, in no acute distress. LUNGS: Clear to auscultation bilaterally. No wheezes or crackles. CARDIOVASCULAR: Normal rate, regular rhythm. No murmur. Normal S1 and S2. ABDOMEN: Soft. Mild tenderness to palpation. EXTREMITIES: No edema. CARDIAC MEDICATIONS 1. Lisinopril 20 mg p.o. daily. 2. Metoprolol succinate 25 mg p.o. daily. 3. Aspirin 81 mg p.o. daily. 4. Atorvastatin 40 mg p.o. nightly. LABS: None today. TELEMETRY: Normal sinus rhythm. CARDIOVASCULAR STUDIES: Cardiac catheterization May 09, 2018, demonstrated multivessel CAD with GIS INSTRUCTOR of the RCA and 60% calcified lesion in the proximal LAD and 50% calcified lesion in the proximal circumflex. FFR was negative, and no intervention was required prior to surgery. IMPRESSION 1. Epigastric pain with hepatobiliary iminodiacetic acid scan suggestive of chronic cholecystitis/gallbladder dyskinesia, now status post laparoscopic cholecystectomy. 2. Coronary artery disease status post prior stents in 2011. 3. Peripheral arterial disease. 4. Infrarenal aortic aneurysm measuring 2.7 x 3 cm. 5. Carotid artery disease status post right carotid endarterectomy. RECOMMENDATIONS: Continue current cardiac medications. Patient's blood pressure is labile possibly secondary to pain from recent cholecystectomy. If blood pressure remains elevated after pain is controlled, we will need to increase patient's lisinopril. Monitor patient on telemetry. Thank you for this consult. We will continue to follow. Job#: [id number] EV MENDEZ
[2018-05-11] MEDS: ONDANSETRON HCL INJ 2 MG/ML VIAL IV PRN (11:53)
[2018-05-11 12:15] VITALS: BP 188/88
[2018-05-11 12:23] LABS: BASOPHILS % 0.1 % (0.0-1.0); EOSINOPHILS % 0.1 % (0.0-6.0); HEMATOCRIT 33.1 % (34.2-44.1); LYMPHOCYTES # (AUTO) 1.2 (1.0-3.2); LYMPHOCYTES % 13.4 % (18.0-39.1); MEAN CORPUSCULAR HEMOGLOBIN 27.7 pg (28-32); MEAN CORPUSCULAR HGB CONC 33.2 g/dL (31-35); MEAN CORPUSCULAR VOLUME 83.4 fL (81-99); MONOCYTES # (AUTO) 0.5 (0.2-0.8); MONOCYTES % 5.3 % (4.4-11.3); NEUTROPHILS # (AUTO) 7.2 (2.1-6.9); NEUTROPHILS % 80.9 % (38.7-80.0); PLATELET COUNT 292 x10e3/uL (140-360); RED BLOOD COUNT 3.97 x10e6/uL (3.6-5.1); RED CELL DISTRIBUTION WIDTH 14.8 % (11.7-14.4)
[2018-05-11 12:39] LABS: ANION GAP 12.7 mmol/L (8-16); CREATININE, SERUM 1.08 mg/dL (0.57-1.11); MAGNESIUM 1.5 MG/DL (1.3-2.1); POTASSIUM 3.7 mmol/L (3.5-5.1)
[2018-05-11] MEDS ORDERED: TYLENOL WITH C1 EACH PO (14:20)
--- NOTE | 2018-05-11 14:31 | Discharge Summary ---
ADMIT DIAGNOSES 1. Gallbladder sludge. 2. Biliary dyskinesia, likely. 3. Coronary artery disease (multiple coronary stents placed in 2011). 4. Tobacco abuse. 5. Hypertensive heart disease. 6. Chronic systolic congestive heart failure. 7. Rqx-WV-gnskgkob myocardial infarction in April 2017. DISCHARGE DIAGNOSES 1. Status post laparoscopic cholecystectomy because of chronic cholecystitis/biliary dyskinesia. 2. Status post left heart catheterization, but no percutaneous coronary intervention warranted. 3. Coronary artery disease (multiple coronary stents placed in 2011). 4. Tobacco abuse. 5. Hypertensive heart disease. 6. Chronic systolic congestive heart failure. 7. Ischemic heart disease (tyr-UI-dyzjzqpc myocardial infarction in April 2017). HOSPITAL COURSE: This is a 68-year-old white woman who was initially admitted to [facility] with the diagnosis of midepigastric pain and gallbladder sludge. During this hospitalization, she underwent a HIDA scan, which revealed findings consistent with chronic cholecystitis/gallbladder sludge. The patient was seen by cardiology because she has a history of coronary artery disease, as well as ischemic heart disease. In fact, she sustained a khz-SW-owlgnxbt myocardial infarction in April 2017. Also, in 2011 the patient had multiple coronary stents placed. During this hospital stay, the patient was seen by Dr. Maynard, cotton feeder who performed left heart catheterization. This test did reveal multivessel coronary artery disease with 60% calcified lesion in the proximal LAD and 50% calcified lesion in the proximal circumflex. No percutaneous coronary intervention was warranted though. The patient also was found to have infrarenal aortic aneurysm measuring 2.7 x 3 cm. The patient was seen by Dr. Piedra, who performed successful laparoscopic cholecystectomy. The patient's hospitalization was unremarkable. The patient's condition on discharge was stable. DISCHARGE MEDICATIONS 1. Tylenol No. 3 one every 6 hours p.r.n. pain, 20 prescribed, no refills. 2. Aspirin 81 mg daily. 3. Atorvastatin 40 mg at bedtime. 4. Lisinopril 20 mg daily. 5. Metoprolol succinate 25 mg daily. FOLLOWUP INSTRUCTIONS: The patient was instructed to follow up with Dr. Costa Piedra, general surgeon, on Sunday, May 27, 2018. The patient was instructed to follow up with her primary care physician, namely Dr. Marrero, within the next 2 weeks. Tobacco cessation was highly recommended to the patient. Also, during this hospital stay the patient's atorvastatin was increased from 10 mg to 40 mg every night because she has obstructive coronary artery disease and her LDL cholesterol was 120 mg/dL. NAHOMY KRISHNAMURTHY MD Job#: [id number] RI cc:MD IGGY HELMS MD KARAN BHALLA, MD
--- NOTE | 2018-05-28 09:57 | Operative Report ---
DATE OF PROCEDURE: May 09, 2018 PREOPERATIVE DIAGNOSES 1. Chest pain. 2. Positive stress test. POSTOPERATIVE DIAGNOSIS: Multivessel coronary artery disease. OPERATIONS PERFORMED 1. Coronary angiography. 2. Fractional flow reserve of left anterior descending. PRE-SEDATION ASSESSMENT: Medical history, social history, and previous experience with anesthesia were reviewed and documented in the preoperative medical record. Results of relevant diagnostic studies were reviewed. Planned choice of anesthesia, risks, complications, benefits, and alternatives discussed. Patient deemed appropriate candidate for planned choice of anesthesia. CONSENT: The benefits, risks, complications and alternatives of the procedure were discussed with patient, and informed consent was obtained from patient or her surrogate. MEDICATIONS: Please see nursing notes for medication administered during the procedure. DETAILS OF PROCEDURE: Patient was brought to the cardiac catheterization laboratory in a fasting state. Right wrist was prepped and draped in a sterile fashion. Lidocaine 1% was used to infiltrate the right wrist over the right radial artery. A 5-Lebanese sheath was placed in the right radial artery using the Seldinger technique. Coronary angiography was performed using a Suhail preformed catheter to engage both the right and the left coronary arteries. Multiple orthogonal views were obtained of each coronary artery. All catheters were removed over a guide wire. After coronary angiography was completed, decision was made to FFR the intermediate lesion of the LAD. For the FFR of the LAD, the FFR wire was advanced through the Suhail catheter into the mid LAD past the lesion. Initial iFR was 0.89, which was considered intermediate; so, we decided to proceed with FFR with IV adenosine. After two minutes of IV adenosine infusion, the FFR at its michael was noted to be 0.81, which is negative for any flow-limiting lesions. Adenosine was then stopped, and the FFR wire was pulled back into the guide catheter to ensure there was no drift, and then all equipment was removed over a guide wire. The access site was closed using a TR band. The case ended without any complications. Estimated blood loss approximately 25 mL. FINDINGS Left main coronary artery: Large-caliber vessel, normal. Left anterior descending: Large vessel, goes to the apex. There are two small diagonal branches. There is a 60% long calcified lesion in the proximal LAD. Left circumflex: Large codominant left circumflex with one large OM branch. There is a 50% lesion in the proximal portion of the circumflex artery and luminal irregularities otherwise. Distal circumflex provides collaterals to the RCA system. Right coronary artery: Large dominant RCA with previously placed stents in the mid RCA. Distal RCA fills via collaterals from the LAD and the left circumflex system. The RCA is SAP [employer] 100% occluded near the ostium right after the takeoff of the conus branch. COMPLICATIONS: None. SPECIMEN REMOVED: None. ESTIMATED BLOOD LOSS: 25 mL. GRAFTS OR IMPLANTS: None. RECOMMENDATIONS 1. Usual post-PCI care until TR band removed. 2. Continue optimal medical therapy and risk-factor control. 3. Patient is okay to proceed with her previously planned cholecystectomy to be done tomorrow, from a cardiovascular standpoint. 4. Patient is to call the office for a followup two weeks after her discharge from the hospital. Job#: [id number] EV
== END 2018-05-11 15:07 | disposition home or self-care (01) | DRG 418 ==
LOC: ER 16:57 → ERHOLD 18:59 → UNDOADMIN 19:27 → ERHOLD 19:27 → MED/SURG3 21:09
PROVIDERS: ADMIT Internal Medicine; ATTEND Internal Medicine
PROC: 4A033BC Measurement of Arterial Pressure, Coronary, Percutaneous Approach (ICD-10-PCS; 2018-05-09)
PROC: B2011ZZ Plain Radiography of Multiple Coronary Arteries using Low Osmolar Contrast (ICD-10-PCS; 2018-05-09)
PROC: 0FT44ZZ Resection of Gallbladder, Percutaneous Endoscopic Approach (ICD-10-PCS; principal; 2018-05-10 10:30)
DX: K81.1 Chronic cholecystitis (principal); I16.9 Hypertensive crisis, unspecified; I50.22 Chronic systolic (congestive) heart failure; I69.351 Hemiplegia and hemiparesis following cerebral infarction affecting right dominant side; I11.0 Hypertensive heart disease with heart failure; E78.5 Hyperlipidemia, unspecified; I25.10 Atherosclerotic heart disease of native coronary artery without angina pectoris; Z95.5 Presence of coronary angioplasty implant and graft; K82.8 Other specified diseases of gallbladder; Z72.0 Tobacco use; I25.2 Old myocardial infarction; I73.9 Peripheral vascular disease, unspecified; I71.4 Abdominal aortic aneurysm, without rupture; I65.21 Occlusion and stenosis of right carotid artery
CPT/HCPCS: 36415; 74177; 78227; 80048; 80053; 80061; 81001; 81025; 82150; 82270; 82550; 82553; 83690; 83735; 84484; 85025; 85610; 85730; 88304; 93005; 93454; 93571; 96361; 96367; 96376; 99284; A9537; C1766; C1769; J0153; J1100; J1170; J1200; J1644; J1940; J2001; J2250; J2270; J2405; J2543; J3480; J7030; Q9967

== ENCOUNTER 2018-08-14 12:45 | Emergency (ER) | payer MEDICARE ==
[~2018-08-14] VITALS: Ht 162.6 cm; Wt 63.0 kg
[~2018-08-14 12:45] MED LIST changes: +CEFDINIR300 MG PO; +METOPROLOL SUCC25 MG PO; +TYLENOL WITH C1 EACH PO
[2018-08-14 14:30] LABS: PREGNANCY TEST, URINE NEGATIVE (NEGATIVE)
[2018-08-14 14:37] LABS: BILIRUBIN,URINE NEGATIVE (NEGATIVE); CLARITY,URINE CLEAR (CLEAR); COLOR,URINE YELLOW (YELLOW); KETONES,URINE NEGATIVE (NEGATIVE); LEUKOCYTE ESTERASE ,URINE NEGATIVE (NEGATIVE); NITRITE,URINE NEGATIVE (NEGATIVE); PROTEIN,URINE DIPSTICK TRACE (NEGATIVE); URINE UROBILINOGEN 0.2 mg/dL (0.2 - 1)
[2018-08-14 14:55] LABS: BACTERIA,URINE MODERATE /HPF; EPITHELIAL CELLS,URINE MODERATE /LPF; WBC,URINE (MAN) 0-5 /HPF (0-5)
== END 2018-08-14 17:57 | disposition left against medical advice (07) ==
LOC: ER 12:45
DX: R10.84 Generalized abdominal pain (principal)
CPT/HCPCS: 81001; 81025; 93005

== ENCOUNTER 2018-12-26 10:49 | Inpatient (IN) | payer MEDICARE ==
[~2018-12-26] VITALS: Ht 162.6 cm; Wt 78.7 kg
--- OUTSIDE RECORDS SUMMARY | 2018-12-26 10:51 | XMS REPORT | Clinical Summary ---
Author Author Roland [facility] Organization [facility] Address Unknown Phone Unavailable Care Team Providers Care Bell Cleaner Name Role Phone Asked, No Pcp PCP Unavailable Allergies No Known Allergies Medications End Date Status Medication Sig Dispensed Refills Start Date Active lisinopril Take 40 mg by 0 (PRINIVIL,ZESTRIL) 40 mg mouth daily. tablet 09/20/2018 sucralfate (CARAFATE) 1 Take 1 tablet 120 tablet 2 gram tablet (1 g total) 8 by mouth 4 (four) times a day before meals and nightly for 30 days. 09/21/2018 nicotine (NICODERM CQ) 21 Place 1 patch 30 patch 0 mg/24 hr on the skin 8 daily for 30 days. 09/20/2018 pantoprazole (PROTONIX) Take 1 tablet 60 tablet 2 40 MG EC tablet (40 mg total) 8 by mouth 2 (two) times a day for 30 days. Active Problems Problem Noted Date Abdominal pain 08/15/2018 Left upper quadrant pain 08/15/2018 Overview: Added automatically from request for surgery [id number] Encounters Care Team Description Date Type Specialty Ramiro Pak MD 08/20/2018 Anesthesia Gastroenterology Event Sourav Saldaña MD ESOPHAGOGASTRODUODENOSCOPY (EGD) with bx 08/20/2018 Surgery Gastroenterology Catalina Gerber MD Left upper quadrant pain (Primary Dx); Abdominal pain, unspecified abdominal location; Peptic ulcer disease 08/15/2018 [facility] General Internal Medicine - Encounter 08/21/2018 after 12/25/2017 Social History Date Tobacco Use Types Packs/Day Years Used Current Every Day Smoker Cigarettes 1 40 Smokeless Tobacco: Never Used Tobacco Cessation: Ready to Quit: No; Counseling Given: Yes Alcohol Use Drinks/Week oz/Week Comments Yes 1 Cans of 0.6 every once in a while per patient beer Sex Assigned at Date Recorded Not on file Industry Job Start Date Occupation Not on file Not on file Not on file Travel End Travel History Travel Start No recent travel history available. Last Filed Vital Signs Time Taken Vital Sign Reading 08/21/2018 10:07 AM CDT Blood Pressure 169/77 08/21/2018 10:07 AM CDT Pulse 67 08/21/2018 10:07 AM CDT Temperature 36.7 C (98.1 F) 08/21/2018 10:07 AM CDT Respiratory Rate 17 08/21/2018 10:07 AM CDT Oxygen Saturation 98% - Inhaled Oxygen - Concentration 08/20/2018 12:31 AM CDT Weight 66 kg (145 lb 9.6 oz) 08/15/2018 7:44 PM CDT Height 162.6 cm (5' 4") 08/20/2018 12:31 AM CDT Body Mass Index 24.99 Plan of Treatment Health Maintenance Due Date Last Done Comments BREAST CANCER SCREENING 2002 COLON CANCER SCREENING 2002 SHINGLES VACCINES (#1) 2002 65+ PNEUMOCOCCAL VACCINE 2017 (1 of 2 - PCV13) PNEUMOCOCCAL 2017 POLYSACCHARIDE VACCINE AGE 65 AND OVER INFLUENZA VACCINE 06/05/2018 Procedures Comments Procedure Name Priority Date/Time Associated Diagnosis SURGICAL PATHOLOGY Routine 08/20/2018 REQUEST 1:54 PM CDT SURGICAL PATHOLOGY Routine 08/20/2018 REQUEST 1:54 PM CDT ESOPHAGOGASTRODUODENOSCOP 08/20/2018 Left upper quadrant pain Y (EGD) 1:00 PM CDT CARCINOEMBRYONIC ANTIGEN Routine 08/20/2018 (CEA) 4:34 AM CDT CANCER ANTIGEN 19-9 Routine 08/20/2018 4:34 AM CDT ESTIMATED GFR Routine 08/19/2018 4:40 AM CDT BASIC METABOLIC PANEL Routine 08/19/2018 4:40 AM CDT HC COMPLETE BLD COUNT Routine 08/19/2018 W/AUTO DIFF 4:40 AM CDT MRA RENALS W WO CONTRAST Routine 08/18/2018 1:07 PM CDT ESTIMATED GFR Routine 08/18/2018 4:59 AM CDT BASIC METABOLIC PANEL Routine 08/18/2018 4:59 AM CDT HC COMPLETE BLD COUNT Routine 08/18/2018 W/AUTO DIFF 4:59 AM CDT ESTIMATED GFR Routine 08/17/2018 4:46 AM CDT BASIC METABOLIC PANEL Routine 08/17/2018 4:46 AM CDT HC COMPLETE BLD COUNT Routine 08/17/2018 W/AUTO DIFF 4:[address] ABDOMEN W WO CONTRAST Routine 08/16/2018 PELVIS W WO CONTRAST 4:04 PM CDT URINALYSIS SCREEN AND Routine 08/16/2018 MICROSCOPY, WITH REFLEX 4:00 AM CDT TO CULTURE URINE CULTURE Routine 08/16/2018 4:00 AM CDT GRAM STAIN Routine 08/16/2018 4:00 AM CDT ECG 12-LEAD Routine 08/15/2018 7:02 PM CDT ESTIMATED GFR Routine 08/15/2018 6:45 PM CDT BILIRUBIN DIRECT Routine 08/15/2018 6:45 PM CDT LIPASE LEVEL Routine 08/15/2018 6:45 PM CDT AMYLASE LEVEL Routine 08/15/2018 6:45 PM CDT THYROID STIMULATING Routine 08/15/2018 HORMONE 6:45 PM CDT LIPID PANEL Routine 08/15/2018 6:45 PM CDT COMPREHENSIVE METABOLIC Routine 08/15/2018 PANEL 6:45 PM CDT HC COMPLETE BLD COUNT Routine 08/15/2018 W/AUTO DIFF 6:45 PM CDT after 12/25/2017 Results * Surgical pathology request (08/20/2018 1:54 PM CDT) Only the most recent of 2 results within the time period is included. [facility] DEPARTMENT OF PATHOLOGY AND GENOMIC MEDICINE Surgical pathology report See link below for PDF Lab [facility] DEPARTMENT OF Report PATHOLOGY AND GENOMIC MEDICINE Result status This is Supplemental Report [facility] DEPARTMENT OF for [id number] PATHOLOGY AND GENOMIC MEDICINE Performing Organization Address City/State/Zipcode Phone Number [place] [address] [place] [address] PATHOLOGY AND GENOMIC MEDICINE * Cancer antigen 19-9 (08/20/2018 4:34 AM CDT) CA 19-9 17 0 - 35 U/mL [facility] DEPARTMENT OF Comment: PATHOLOGY AND The Tyshawn Roderick 8000 CA19-9 GENOMIC MEDICINE immunoassay was used. Results obtained with different assay methods or kits should not be used interchangeably and may be different. Specimen Plasma specimen Performing Organization Address City/[facility] [place] [address] PATHOLOGY AND GENOMIC MEDICINE * Carcinoembryonic antigen (CEA) (08/20/2018 4:34 AM CDT) CEA 1.4 0.0 - 3.8 ng/mL [facility] DEPARTMENT OF Comment: PATHOLOGY AND Reference range for heavy GENOMIC MEDICINE smokers:0.0 - 5.5 ng/mL The TYSHAWN Roderick 8000 CEA immunoassay was used. Results obtained with different assay methods or kits should not be used interchangeably and may be different. Specimen Serum Performing Organization Address [facility] Cent[facility] Phone Number [address] [address] PATHOLOGY AND GENOMIC MEDICINE * Estimated GFR (08/19/2018 4:40 AM CDT) Only the most recent of 4 results within the time period is included. Estimated GFR 66 mL/min/1.73 m2 [facility] DEPARTMENT OF Comment: PATHOLOGY AND [employer] GENOMIC MEDICINE rpretation G1 >=90 Normal or high G2 60-89Mildly decreased [id number] Mildly to moderately decreased [id number] Moderately to severely decreased G4 15-29Severely decreased G5 <15Kidney failure The eGFR was calculated using the Chronic Kidney Disease Epidemiology Collaboration (CKD-EPI) equation. Interpretation is based on recommendations of the National Kidney Foundation-Kidney Disease Outcomes Quality Initiative (NKF-KDOQI) published in 2014. Specimen Plasma specimen Performing Organization Address City/State/[facility] Phone Number [place] [phone] [place] [address] PATHOLOGY AND GENOMIC MEDICINE * CBC with platelet and differential (08/19/2018 4:40 AM CDT) Only the most recent of 4 results within the time period is included. WBC 5.0 4.2 - 11.0 k/uL [facility] DEPARTMENT OF PATHOLOGY AND GENOMIC MEDICINE RBC 4.61 4.04 - 5.86 m/uL [facility] PATHOLOGY AND GENOMIC MEDICINE HGB 12.3 11.5 - 15.3 g/dL [facility] DEPARTMENT PATHOLOGY AND GENOMIC MEDICINE HCT 38.0 34.0 - 45.0 % [facility] DEPARTMENT OF PATHOLOGY AND GENOMIC MEDICINE MCV 82.4 80.0 - 98.0 fL [facility] DEPARTMENT OF PATHOLOGY AND GENOMIC MEDICINE MCH 26.7 (L) 27.0 - 34.0 pg [facility] DEPARTMENT OF PATHOLOGY AND GENOMIC MEDICINE MCHC 32.4 31.5 - 36.5 g/dL [facility] DEPARTMENT OF PATHOLOGY AND GENOMIC MEDICINE RDW - SD 43.7 37.0 - 51.0 fL [facility] DEPARTMENT OF PATHOLOGY AND GENOMIC MEDICINE MPV 9.6 7.4 - 10.4 fL [facility] DEPARTMENT OF PATHOLOGY AND GENOMIC MEDICINE Platelet count 306 150 - 400 k/uL [facility] DEPARTMENT OF PATHOLOGY AND GENOMIC MEDICINE Nucleated RBC 0.00 /100 WBC [facility] DEPARTMENT OF PATHOLOGY AND GENOMIC MEDICINE Neutrophils 49.2 36.0 - 66.0 % [facility] DEPARTMENT OF PATHOLOGY AND GENOMIC MEDICINE Lymphocytes 37.6 24.0 - 44.0 % [facility] DEPARTMENT OF PATHOLOGY AND GENOMIC MEDICINE Monocytes 6.8 (H) 0.0 - 6.0 % [facility] DEPARTMENT OF PATHOLOGY AND GENOMIC MEDICINE Eosinophils 5.2 0.0 - 6.0 % [facility] OF PATHOLOGY AND GENOMIC MEDICINE Basophils 0.8 0.0 - 1.2 % [facility] DEPARTMENT OF PATHOLOGY AND GENOMIC MEDICINE Immature granulocytes 0.4 0.0 - 1.0 % [facility] DEPARTMENT OF PATHOLOGY AND GENOMIC MEDICINE Specimen Blood Performing Organization Address City/State/Zipcode Phone Number [facility] [address] [place] [address] PATHOLOGY AND GENOMIC MEDICINE * Basic metabolic panel (08/19/2018 4:40 AM CDT) Only the most recent of 3 results within the time period is included. Sodium 142 135 - 150 mEq/L [facility] DEPARTMENT OF PATHOLOGY AND GENOMIC MEDICINE Potassium 3.9 3.5 - 5.0 mEq/L [facility] DEPARTMENT OF PATHOLOGY AND GENOMIC MEDICINE Chloride 108 98 - 112 mEq/L [facility] DEPARTMENT OF PATHOLOGY AND GENOMIC MEDICINE CO2 22 (L) 24 - 31 mmol/L [facility] DEPARTMENT OF PATHOLOGY AND GENOMIC MEDICINE Anion gap 12@ANIO 7 - 15 mEq/L [facility] DEPARTMENT OF PATHOLOGY AND GENOMIC MEDICINE BUN 15 7 - 18 mg/dL [facility] DEPARTMENT OF PATHOLOGY AND GENOMIC MEDICINE Creatinine 0.90 0.50 - 0.90 mg/dL [facility] DEPARTMENT OF PATHOLOGY AND GENOMIC MEDICINE Glucose 88 65 - 100 mg/dL [facility] DEPARTMENT OF PATHOLOGY AND GENOMIC MEDICINE Calcium 9.0 8.8 - 10.2 mg/dL [facility] OF PATHOLOGY AND GENOMIC MEDICINE Specimen Plasma specimen Performing Organization Address [facility] Cent[facility]ode Phone Number [facility] [address] [place] [address] PATHOLOGY AND Ped[facility] MEDICINE * MRA Renals W Wo Contrast (08/18/2018 1:07 PM CDT) Narrative Performed At [facility] MRA RENALS W WO CONTRAST CLINICAL INDICATION:Mesenteric ischemia chronic, Mesenteric ischemia acute TECHNIQUE: Multisequence multiplanar MR imaging of the abdomen was performed before and then following the intravenous administration of gadolinium contrast. In addition to angiographic imaging, 3-D MRA was specifically performed with MIP imaging. COMPARISON:None. CT of 08/16/2018 is reviewed. FINDINGS: AORTA: There is mild atherosclerotic irregularity of the aorta with an infrarenal ectasia about 4 cm in length and 2.9 cm in maximal transverse diameter without findings for acute complication. MESENTERIC ARTERIES: There is normal enhancement of the celiac trunk and its major branches by MR. The superior mesenteric artery and inferior mesenteric artery also well opacified and patent although with relatively diminutive enhancement in the very proximal ARIANA, corresponding with yesterday's CT without appreciable stenosis. RENAL ARTERIES: There are 2 left renal arteries, a smaller accessory renal artery originating just superior to the main renal artery, both arteries patent without significant stenosis. A single right renal artery is present with an 8 mm in length high-grade stenosis (series 18 image 40) originating within the first 1-2 cm from the ostium. OTHER VASCULAR FINDINGS: Unremarkable appearance of the IVC portal veins and hepatic veins. BOWEL: Unremarkable within limits of MRI. No bowel wall thickening or edema. No hyperemia is identified. VISCERA: There are multiple nonenhancing fluid density cysts in the liver. No suspicious mass. Gallbladder is not visualized. There is no biliary dilatation. Pancreas is homogeneous enhancement without ductal dilatation. Spleen, adrenal glands, and kidneys are without suspicious mass with simple fluid cysts associated with the kidneys. No hydronephrosis. No lymphadenopathy or ascites is identified. Regional osseous structures are unremarkable. The heart is top normal in size and lung bases appear clear. IMPRESSION: 1. Unremarkable MRI of the mesenteric vessels without findings for mesenteric ischemia. 2. High-grade stenosis of the right proximal renal artery with symmetric enhancement of the kidneys as described. 3. 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 Thank you for allowing us to participate in the care of your patient [id number] Procedure Note [facility], Radiology Results Incoming - 08/18/2018 1:37 PM CDT MRA RENALS W WO CONTRAST CLINICAL INDICATION: Mesenteric ischemia chronic, Mesenteric ischemia acute TECHNIQUE: Multisequence multiplanar MR imaging of the abdomen was performed before and then following the intravenous administration of gadolinium contrast. In addition to angiographic imaging, 3-D MRA was specifically performed with MIP imaging. COMPARISON: None. CT of 08/16/2018 is reviewed. FINDINGS: AORTA: There is mild atherosclerotic irregularity of the aorta with an infrarenal ectasia about 4 cm in length and 2.9 cm in maximal transverse diameter without findings for acute complication. MESENTERIC ARTERIES: There is normal enhancement of the celiac trunk and its major branches by MR. The superior mesenteric artery and inferior mesenteric artery also well opacified and patent although with relatively diminutive enhancement in the very proximal ARIANA, corresponding with yesterday's CT without appreciable stenosis. RENAL ARTERIES: There are 2 left renal arteries, a smaller accessory renal artery originating just superior to the main renal artery, both arteries patent without significant stenosis. A single right renal artery is present with an 8 mm in length high-grade stenosis (series 18 image 40) originating within the first 1-2 cm from the ostium. OTHER VASCULAR FINDINGS: Unremarkable appearance of the IVC portal veins and hepatic veins. BOWEL: Unremarkable within limits of MRI. No bowel wall thickening or edema. No hyperemia is identified. VISCERA: There are multiple nonenhancing fluid density cysts in the liver. No suspicious mass. Gallbladder is not visualized. There is no biliary dilatation. Pancreas is homogeneous enhancement without ductal dilatation. Spleen, adrenal glands, and kidneys are without suspicious mass with simple fluid cysts associated with the kidneys. No hydronephrosis. No lymphadenopathy or ascites is identified. Regional osseous structures are unremarkable. The heart is top normal in size and lung bases appear clear. IMPRESSION: 1. Unremarkable MRI of the mesenteric vessels without findings for mesenteric ischemia. 2. High-grade stenosis of the right proximal renal artery with symmetric enhancement of the kidneys as described. 3. 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 Thank you for allowing us to participate in the care of your patient [facility]-[id number] [facility] Organization Address City/State/Zipcode Phone Number [facility] [address] [place] [address] * CT Abdomen W Wo Contrast Pelvis W Wo Contrast (08/16/2018 4:04 PM CDT) Narrative Performed At EXAMINATION:CT ABDOMEN W WO CONTRAST PELVIS W WO CONTRAST [place] CLINICAL HISTORY:Abd paingastroenteritis or colitis suspected COMPARISON:None. TECHNIQUE: Multiple axial CT images of the Abdomen and pelvis were obtainedwithout and with IV contrast Oral contrast was administered. . Sagittal and coronal reconstructions were done. CT imaging was performed with iterative reconstruction technique and/or automated exposure control to reduce radiation dose. FINDINGS: HEPATOBILIARY:Tiny Kaleigh hypodensities in the liver nonspecific measure up to 9 mm possibly cysts. The main portal vein is patent. GALLBLADDER: Absent. SPLEEN:No splenomegaly. PANCREAS:No focal masses or ductal dilation. ADRENALS:No adrenal nodules. KIDNEYS:No hydronephrosis, stones or solid masses. PERITONEUM/RETROPERITONEUM:No free air or fluid. No lymphadenopathy. ABDOMINAL AORTA/IVC: Ectasia of the abdominal aorta measures up to 2.8 cm in diameter. There is significant atherosclerosis of the iliac arteries. GI TRACT:Visualized portions of the bowel demonstrate no distention or wall thickening. There are no signs of appendicitis. PELVIC ORGANS/BLADDER:The urinary bladder is fluid-filled. Uterus and ovaries are absent. BONES AND SOFT TISSUES:No acute abnormalities. VISUALIZED LOWER CHEST: No acute abnormalities. IMPRESSION: No acute abnormality. [id number] Procedure Note Interface, Radiology Results Incoming - 08/16/2018 4:20 PM CDT EXAMINATION: CT ABDOMEN W WO CONTRAST PELVIS W WO CONTRAST CLINICAL HISTORY: Abd pain gastroenteritis or colitis suspected COMPARISON: None. TECHNIQUE: Multiple axial CT images of the Abdomen and pelvis were obtained without and with IV contrast Oral contrast was administered. . Sagittal and coronal reconstructions were done. CT imaging was performed with iterative reconstruction technique and/or automated exposure control to reduce radiation dose. FINDINGS: HEPATOBILIARY: Tiny Kaleigh hypodensities in the liver nonspecific measure up to 9 mm possibly cysts. The main portal vein is patent. GALLBLADDER: Absent. SPLEEN: No splenomegaly. PANCREAS: No focal masses or ductal dilation. ADRENALS: No adrenal nodules. KIDNEYS: No hydronephrosis, stones or solid masses. PERITONEUM/RETROPERITONEUM: No free air or fluid. No lymphadenopathy. ABDOMINAL AORTA/IVC: Ectasia of the abdominal aorta measures up to 2.8 cm in diameter. There is significant atherosclerosis of the iliac arteries. GI TRACT: Visualized portions of the bowel demonstrate no distention or wall thickening. There are no signs of appendicitis. PELVIC ORGANS/BLADDER: The urinary bladder is fluid-filled. Uterus and ovaries are absent. BONES AND SOFT TISSUES: No acute abnormalities. VISUALIZED LOWER CHEST: No acute abnormalities. IMPRESSION: No acute abnormality. [id number] Performing Organization Address City/State/Zipcode Phone Number [facility] [address] [place] [address] * Urinalysis screen and microscopy, with reflex to culture (08/16/2018 4:00 AM CDT) Specimen site Clean catch [facility] DEPARTMENT OF PATHOLOGY AND GENOMIC MEDICINE Color, UA Yellow [facility] DEPARTMENT OF PATHOLOGY AND GENOMIC MEDICINE Appearance, UA Clear [facility] DEPARTMENT OF PATHOLOGY AND GENOMIC MEDICINE Specific gravity, UA 1.015 1.001 - 1.035 [facility] DEPARTMENT OF PATHOLOGY AND GENOMIC MEDICINE pH, UA 6.0 5.0 - 8.5 [facility] DEPARTMENT OF PATHOLOGY AND GENOMIC MEDICINE Protein, UA Negative Negative [facility] DEPARTMENT OF PATHOLOGY AND GENOMIC MEDICINE Glucose, UA Negative Negative [facility] DEPARTMENT OF PATHOLOGY AND GENOMIC MEDICINE Ketones, UA Negative Negative [facility] DEPARTMENT OF PATHOLOGY AND GENOMIC MEDICINE Bilirubin, UA Negative Negative [facility] DEPARTMENT OF PATHOLOGY AND GENOMIC MEDICINE Blood, UA Negative Negative [facility] DEPARTMENT OF PATHOLOGY AND GENOMIC MEDICINE Nitrite, UA Positive (A) Negative [facility] DEPARTMENT OF PATHOLOGY AND GENOMIC MEDICINE Urobilinogen, UA 4.0 (A) <2.0 [facility] DEPARTMENT OF PATHOLOGY AND GENOMIC MEDICINE Leukocyte esterase, UA Trace (A) Negative [facility] DEPARTMENT OF PATHOLOGY AND GENOMIC MEDICINE Epithelial cells, UA Many /HPF [facility] DEPARTMENT OF PATHOLOGY AND GENOMIC MEDICINE WBC, UA 22 (H) 0 - 5 /HPF [facility] DEPARTMENT OF PATHOLOGY AND GENOMIC MEDICINE RBC, UA 1 0 - 5 /HPF [facility] DEPARTMENT OF PATHOLOGY AND GENOMIC MEDICINE Bacteria, UA Few None seen [facility] DEPARTMENT OF PATHOLOGY AND GENOMIC MEDICINE Yeast, UA None seen [facility] DEPARTMENT OF PATHOLOGY AND GENOMIC MEDICINE Yeast with pseudohyphae, None seen [facility] DEPARTMENT OF UA PATHOLOGY AND GENOMIC MEDICINE Specimen Urine Performing Organization Address City/State/Zipcode Phone Number [facility] DEPARTMENT OF [address] [place] [address] PATHOLOGY AND GENOMIC MEDICINE * Gram stain (08/16/2018 4:00 AM CDT) Gram stain result No WBC's or organisms seen. [facility] DEPARTMENT OF Comment: PATHOLOGY AND Specimen Information GENOMIC MEDICINE Specimen Source: Urine Specimen Site: Clean catch Specimen Urine Performing Organization Address City/State/Zipcode Phone Number [facility] DEPARTMENT OF [address] [place] [address] PATHOLOGY AND GENOMIC MEDICINE * Urine culture (08/16/2018 4:00 AM CDT) Urine culture isolate Escherichia coli [facility] DEPARTMENT OF >10-5 cfu/ml PATHOLOGY AND (A) GENOMIC MEDICINE Comment: Specimen Information Specimen Source: Urine Specimen Site: Clean catch Urine culture isolate Mixed Gram positive ezekiel [facility] DEPARTMENT OF 10-1 cfu/ml PATHOLOGY AND (A) GENOMIC MEDICINE Specimen Urine Antibiotic Method Susceptibility Organism Ampicillin ANI 4 mcg/mL: Susceptible Escherichia coli Amoxicillin/Clavulanate ANI 8/4 mcg/mL: Susceptible Escherichia coli Amikacin ANI <=4 mcg/mL: Susceptible Escherichia coli Aztreonam ANI <=1 mcg/mL: Susceptible Escherichia coli Ceftazidime ANI <=0.5 mcg/mL: Susceptible Escherichia coli Ciprofloxacin ANI <=0.5 mcg/mL: Susceptible Escherichia coli Ceftriaxone ANI <=0.5 mcg/mL: Susceptible Escherichia coli Cefuroxime Sodium ANI <=4 mcg/mL: Susceptible Escherichia coli Cefazolin ANI 2 mcg/mL: Susceptible Escherichia coli Cefepime ANI <=0.5 mcg/mL: Susceptible Escherichia coli Nitrofurantoin ANI <=16 mcg/mL: Susceptible Escherichia coli Cefoxitin ANI <=4 mcg/mL: Susceptible Escherichia coli Gentamicin ANI <=1 mcg/mL: Susceptible Escherichia coli Imipenem ANI <=0.25 mcg/mL: Susceptible Escherichia coli Levofloxacin ANI <=1 mcg/mL: Susceptible Escherichia coli Meropenem ANI <=0.125 mcg/mL: Susceptible Escherichia coli Tobramycin ANI 1 mcg/mL: Susceptible Escherichia coli Ampicillin/Sulbactam ANI 4/2 mcg/mL: Susceptible Escherichia coli Trimethoprim/Sulfamethoxazole ANI <=0.5/9.5 mcg/mL: Susceptible Escherichia coli Tetracycline ANI <=1 mcg/mL: Susceptible Escherichia coli Piperacillin/Tazobactam ANI <=2/4 mcg/mL: Susceptible Escherichia coli Ertapenem ANI <=0.125 mcg/mL: Susceptible Escherichia coli Tigecycline ANI <=0.5 mcg/mL: Susceptible Escherichia coli Performing Organization Address [facility] Phone Number [facility] [address] [place] [address] PATHOLOGY AND GENOMIC MEDICINE * ECG 12 lead (08/15/2018 7:02 PM CDT) Ventricular rate 65 [facility] Atrial rate 65 [facility] WA interval 132 [facility] QRSD interval 88 [facility] QT interval 400 [facility] QTC interval 416 [facility] P axis 1 54 [facility] QRS axis 1 48 [facility] T wave axis 76 [facility] EKG impression Normal sinus [facility] MUSE rhythm-Nonspecific ST and T wave abnormality-Abnormal ECG-No previous ECGs available- Performing Organization Address [facility] Phone Number [facility] [address] [place] [address] * Thyroid stimulating hormone (08/15/2018 6:45 PM CDT) TSH 2.01 0.27 - 4.20 uIU/mL [facility] DEPARTMENT OF PATHOLOGY AND GENOMIC MEDICINE Specimen Plasma specimen Performing Organization Address City/[facility] Phone Number [place] [phone] PATHOLOGY AND GENOMIC MEDICINE * Lipase level (08/15/2018 6:45 PM CDT) Lipase 12 (L) 13 - 60 U/L [facility] DEPARTMENT OF PATHOLOGY AND GENOMIC MEDICINE Specimen Plasma specimen Performing Organization Address City/[facility] Phone Number [facility] [address] [place] [address] PATHOLOGY AND GENOMIC MEDICINE * Bilirubin direct (08/15/2018 6:45 PM CDT) Bilirubin direct <0.2 0.0 - 0.4 mg/dL [facility] DEPARTMENT OF PATHOLOGY AND GENOMIC MEDICINE Specimen Plasma specimen Performing Organization Address City/[facility] Phone Number [place] [address] [place] [address] PATHOLOGY AND GENOMIC MEDICINE * Amylase level (08/15/2018 6:45 PM CDT) Amylase 30 28 - 100 U/L [facility] DEPARTMENT OF PATHOLOGY AND GENOMIC MEDICINE Specimen Plasma specimen Performing Organization Address City/[facility] Phone Number [address] [place] [address] PATHOLOGY AND GENOMIC MEDICINE * Lipid panel (08/15/2018 6:45 PM CDT) Cholesterol 190 0 - 199 mg/dL [facility] DEPARTMENT OF PATHOLOGY AND GENOMIC MEDICINE Triglycerides 147 0 - 149 mg/dL [facility] DEPARTMENT OF PATHOLOGY AND GENOMIC MEDICINE HDL cholesterol 33 (L) 40 - 9,999 mg/dL [facility] DEPARTMENT OF PATHOLOGY AND GENOMIC MEDICINE LDL cholesterol 148 (H)Comment: Result 0 - 99 mg/dL [facility] DEPARTMENT OF obtained by direct LDL PATHOLOGY AND measurement GENOMIC MEDICINE Lipid panel See below [facility] DEPARTMENT OF interpretation Comment: PATHOLOGY AND Total Cholesterol GENOMIC MEDICINE (mg/dL) LDL Cholesterol (mg/dL) <200 Desirable <100 Optimal 200-239Borderline -aeal664-3 29Near or above optimal >=240High 130-159Borderline- high 160-189High >=190Very high HDL Cholesterol (mg/dL) Triglycerides (mg/dL) <40Low <150 Normal >=60 High 150-199Borderline- high 200-499High >=500Very high Risk Catergories that modify LDL goals. Risk Catergories LDL goal (mg/dL) CHD and CHD risk equivalent <100 (10-year risk >20%) Multiple (2+) risk factors <130 (10-year risk=<20%) 0-1 risk factors <160 (<10-year risk) Defining levels of lipids in metabolic syndrome Triglycerides >=150 mg/dL HDL Cholesterol Men <40 mg/dL Women <50 mg/dL Non-HDL cholesterol is a second target for therapy in persons with high triglycerides (>=200 mg/dL) Specimen Plasma specimen Performing Organization Address City/State/Zipcode Phone Number [place] [address] [place] [address] PATHOLOGY AND [employer] MEDICINE * Comprehensive metabolic panel (08/15/2018 6:45 PM CDT) Sodium 139 135 - 150 mEq/L [facility] DEPARTMENT OF PATHOLOGY AND GENOMIC MEDICINE Potassium 4.0 3.5 - 5.0 mEq/L [facility] DEPARTMENT OF PATHOLOGY AND GENOMIC MEDICINE Chloride 104 98 - 112 mEq/L [facility] DEPARTMENT OF PATHOLOGY AND GENOMIC MEDICINE CO2 23 (L) 24 - 31 mmol/L [facility] DEPARTMENT OF PATHOLOGY AND GENOMIC MEDICINE Anion gap 12@ANIO 7 - 15 mEq/L [facility] DEPARTMENT OF PATHOLOGY AND GENOMIC MEDICINE BUN 23 (H) 7 - 18 mg/dL [facility] DEPARTMENT OF PATHOLOGY AND GENOMIC MEDICINE Creatinine 1.00 (H) 0.50 - 0.90 mg/dL [facility] DEPARTMENT OF PATHOLOGY AND GENOMIC MEDICINE Glucose 110 (H) 65 - 100 mg/dL [facility] DEPARTMENT OF PATHOLOGY AND GENOMIC MEDICINE Calcium 9.2 8.8 - 10.2 mg/dL [facility] DEPARTMENT OF PATHOLOGY AND GENOMIC MEDICINE Protein 6.9 6.3 - 8.3 g/dL [facility] DEPARTMENT OF PATHOLOGY AND GENOMIC MEDICINE Albumin 3.2 (L) 3.5 - 5.0 g/dL [facility] DEPARTMENT OF PATHOLOGY AND GENOMIC MEDICINE A/G ratio 0.9 0.7 - 3.8 [facility] DEPARTMENT OF PATHOLOGY AND GENOMIC MEDICINE Alkaline phosphatase 113 (H) 0 - 104 U/L [facility] DEPARTMENT OF PATHOLOGY AND GENOMIC MEDICINE AST 20 10 - 35 U/L [facility] DEPARTMENT OF PATHOLOGY AND GENOMIC MEDICINE ALT 8 5 - 50 U/L [facility] DEPARTMENT OF PATHOLOGY AND GENOMIC MEDICINE Total bilirubin 0.3 0.2 - 1.2 mg/dL [facility] DEPARTMENT OF PATHOLOGY AND GENOMIC MEDICINE Specimen Plasma specimen Performing Organization Address City/State/Zipcode Phone Number [place] [address] [place] [address] PATHOLOGY AND GENOMIC MEDICINE after 12/25/2017 Insurance Payer Benefit Subscriber ID Type Phone Address Plan / Group [facility] MEDICARE AARP xxxxxxxxx O MEDICARE COMPLETE MCR Advance Directives Patient has advance care planning documents on file. For more information, ivis pires contact: Luan Kraft [address] [place] [address]
--- NOTE | 2018-12-26 10:56 | NUR ---
RIGHT ARM 209/ LEFT ARM 207/
[2018-12-26] MEDS ORDERED: ONDANSETRON HCL INJ 2MG/ML 2ML 2 MG/ML VIAL IV NR (11:01)
[2018-12-26] MEDS ORDERED: METOPROLOL TARTRATE INJ 1 MG/ML VIAL IV NR ×2 (11:15→12:45)
[2018-12-26] MEDS ORDERED: SODIUM CHLORIDE 0.9% 1000ML 1,000 ML IV ONE (11:15)
[2018-12-26] MEDS ORDERED: ASPIRIN 81 MG CHEW TAB PO ONE (11:15)
[2018-12-26] MEDS ORDERED: MORPHINE SULFATE INJ 4 MG/ML INJ 1ML IV NR (11:15)
[2018-12-26 11:48] LABS: BASOPHILS # (AUTO) 0.1 (0.0-0.1); BASOPHILS % 0.9 % (0.0-1.0); EOSINOPHILS # (AUTO) 0.2 (0.0-0.4); EOSINOPHILS % 3.1 % (0.0-6.0); HEMOGLOBIN 13.2 g/dL (12.0-16.0); LYMPHOCYTES # (AUTO) 1.6 (1.0-3.2); MEAN CORPUSCULAR HEMOGLOBIN 26.1 pg (28-32); MEAN CORPUSCULAR VOLUME 79.1 fL (81-99); MONOCYTES # (AUTO) 0.3 (0.2-0.8); MONOCYTES % 5.3 % (4.4-11.3); NEUTROPHILS # (AUTO) 3.6 (2.1-6.9); NEUTROPHILS % 62.4 % (38.7-80.0); PLATELET COUNT 372 x10e3/uL (140-360); RED BLOOD COUNT 5.06 x10e6/uL (3.6-5.1); RED CELL DISTRIBUTION WIDTH 14.8 % (11.7-14.4)
[2018-12-26 11:55] LABS: INR 0.9
[2018-12-26 11:56] LABS: PARTIAL THROMBOPLASTIN TIME 31.7 seconds (23.8-35.5)
[2018-12-26 12:06] LABS: BILIRUBIN,URINE NEGATIVE (NEGATIVE); CLARITY,URINE CLEAR (CLEAR); COLOR,URINE YELLOW (YELLOW); KETONES,URINE NEGATIVE (NEGATIVE); LEUKOCYTE ESTERASE ,URINE NEGATIVE (NEGATIVE); NITRITE,URINE NEGATIVE (NEGATIVE); PROTEIN,URINE DIPSTICK NEGATIVE (NEGATIVE); URINE UROBILINOGEN 0.2 mg/dL (0.2 - 1)
[2018-12-26 12:06] LABS: AMYLASE 51 U/L (25-125); LIPASE 19 U/L (8-78)
[2018-12-26 12:08] LABS: ALBUMIN 3.9 g/dL (3.5-5.0); ALBUMIN/GLOBULIN RATIO 1.4 (0.8-2.0); ANION GAP 10.8 mmol/L (8-16); CALCIUM 9.8 mg/dL (8.4-10.2); POTASSIUM 3.8 mmol/L (3.5-5.1)
[2018-12-26 12:15] LABS: CREATINE KINASE MB 1.4 ng/mL (0-5.0)
[2018-12-26] MEDS ORDERED: DONNATAL/LIDOCAINE/MAALOX 30 ML SUSP PO NR (12:15)
[2018-12-26] MEDS ORDERED: BELLADONNA ALK/PHENOBARBITAL 5 ML UDC ONE (12:20)
[2018-12-26] MEDS ORDERED: LIDOCAINE VISC 2% SOLN 15 ML UDC ONE (12:20)
[2018-12-26] MEDS ORDERED: MAGNESIUM/ALUMINUM/SIMETHICONE 30 ML UDC ONE (12:21)
[2018-12-26 12:22] LABS: BACTERIA,URINE RARE /HPF; EPITHELIAL CELLS,URINE FEW /LPF
--- NOTE | 2018-12-26 12:48 | Diagnostic Imaging Report ---
Examination: Single AP view of the chest. COMPARISON: CT chest 04/27/2017 INDICATION: Abdominal pain DISCUSSION: The lungs are well-inflated. Linear opacity compatible with fibrotic change in the left lower lobe. Left lower lobe calcified granuloma and calcified hilar lymph nodes. No new consolidation. Stable cardiomediastinal contour with tortuosity and atherosclerotic calcification of the thoracic aorta. No pulmonary edema. No acute osseous abnormality. No judd pneumoperitoneum. IMPRESSION: 1. No acute cardiopulmonary abnormalities. Signed by: Dr. Joey Delarosa M.D. on 12/26/2018 12:45 PM
[2018-12-26] MEDS ORDERED: FAMOTIDINE 20 MG/2 ML VIAL IV STA (14:13)
[2018-12-26] MEDS ORDERED: MORPHINE SULFATE 2 MG/ML SYR 1ML IV PRN (15:30)
[2018-12-26] MEDS ORDERED: SODIUM CHLORIDE FLUSH 10 ML SYR INJ PRN (15:30)
--- OUTSIDE RECORDS SUMMARY | 2018-12-26 15:40 | XMS REPORT | Clinical Summary ---
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 [facility] DEPARTMENT OF PATHOLOGY AND GENOMIC MEDICINE Surgical pathology report See link below for PDF Lab [facility] DEPARTMENT OF Report PATHOLOGY AND GENOMIC MEDICINE Result status This is Supplemental Report [facility] DEPARTMENT OF for [id number] PATHOLOGY AND GENOMIC MEDICINE Performing Organization Address City/State/Zipcode Phone Number [place] [address] [place] [address] PATHOLOGY AND GENOMIC MEDICINE * Cancer antigen 19-9 (08/20/2018 4:34 AM CDT) CA 19-9 17 0 - 35 U/mL [facility] DEPARTMENT OF Comment: PATHOLOGY AND The Tyshawn Roderick 8000 CA19-9 GENOMIC MEDICINE immunoassay was used. Results obtained with different assay methods or kits should not be used interchangeably and may be different. Specimen Plasma specimen Performing Organization Address City/[facility] [place] [address] PATHOLOGY AND GENOMIC MEDICINE * Carcinoembryonic antigen (CEA) (08/20/2018 4:34 AM CDT) CEA 1.4 0.0 - 3.8 ng/mL [facility] DEPARTMENT OF Comment: PATHOLOGY AND Reference range for heavy GENOMIC MEDICINE smokers:0.0 - 5.5 ng/mL The TYSHAWN Roderick 8000 CEA immunoassay was used. Results obtained with different assay methods or kits should not be used interchangeably and may be different. Specimen Serum Performing Organization Address [facility] Phone Number [address] [address] PATHOLOGY AND GENOMIC MEDICINE * Estimated GFR (08/19/2018 4:40 AM CDT) Only the most recent of 4 results within the time period is included. Estimated GFR 66 mL/min/1.73 m2 [facility] DEPARTMENT OF Comment: PATHOLOGY AND [employer]ory[employer]itsInte GENOMIC MEDICINE rpretation G1 >=90 Normal or high G2 60-89Mildly decreased [id number] Mildly to moderately decreased [id number] Moderately to severely decreased G4 15-29Severely decreased G5 <15Kidney failure The eGFR was calculated using the Chronic Kidney Disease Epidemiology Collaboration (CKD-EPI) equation. Interpretation is based on recommendations of the National Kidney Foundation-Kidney Disease Outcomes Quality Initiative (NKF-KDOQI) published in 2014. Specimen Plasma specimen Performing Organization Address City/State/[facility] Cent[facility] Phone Number [place] [phone] [place] [address] PATHOLOGY AND GENOMIC MEDICINE * CBC with platelet and differential (08/19/2018 4:40 AM CDT) Only the most recent of 4 results within the time period is included. WBC 5.0 4.2 - 11.0 k/uL [facility] DEPARTMENT OF PATHOLOGY AND GENOMIC MEDICINE RBC 4.61 4.04 - 5.86 m/uL [facility] PATHOLOGY AND GENOMIC MEDICINE HGB 12.3 11.5 - 15.3 g/dL [facility] DEPARTMENT PATHOLOGY AND GENOMIC MEDICINE HCT 38.0 34.0 - 45.0 % [facility] DEPARTMENT OF PATHOLOGY AND GENOMIC MEDICINE MCV 82.4 80.0 - 98.0 fL [facility] DEPARTMENT OF PATHOLOGY AND GENOMIC MEDICINE MCH 26.7 (L) 27.0 - 34.0 pg [facility] DEPARTMENT OF PATHOLOGY AND GENOMIC MEDICINE MCHC 32.4 31.5 - 36.5 g/dL [facility] DEPARTMENT OF PATHOLOGY AND GENOMIC MEDICINE RDW - SD 43.7 37.0 - 51.0 fL [facility] DEPARTMENT OF PATHOLOGY AND GENOMIC MEDICINE MPV 9.6 7.4 - 10.4 fL [facility] DEPARTMENT OF PATHOLOGY AND GENOMIC MEDICINE Platelet count 306 150 - 400 k/uL [facility] DEPARTMENT OF PATHOLOGY AND GENOMIC MEDICINE Nucleated RBC 0.00 /100 WBC [facility] DEPARTMENT OF PATHOLOGY AND GENOMIC MEDICINE Neutrophils 49.2 36.0 - 66.0 % [facility] DEPARTMENT OF PATHOLOGY AND GENOMIC MEDICINE Lymphocytes 37.6 24.0 - 44.0 % [facility] DEPARTMENT OF PATHOLOGY AND GENOMIC MEDICINE Monocytes 6.8 (H) 0.0 - 6.0 % [facility] DEPARTMENT OF PATHOLOGY AND GENOMIC MEDICINE Eosinophils 5.2 0.0 - 6.0 % [facility] OF PATHOLOGY AND GENOMIC MEDICINE Basophils 0.8 0.0 - 1.2 % [facility] DEPARTMENT OF PATHOLOGY AND GENOMIC MEDICINE Immature granulocytes 0.4 0.0 - 1.0 % [facility] DEPARTMENT OF PATHOLOGY AND GENOMIC MEDICINE Specimen Blood Performing Organization Address City/State/Zipcode Phone Number [facility] [address] [place] [address] PATHOLOGY AND GENOMIC MEDICINE * Basic metabolic panel (08/19/2018 4:40 AM CDT) Only the most recent of 3 results within the time period is included. Sodium 142 135 - 150 mEq/L [facility] DEPARTMENT OF PATHOLOGY AND GENOMIC MEDICINE Potassium 3.9 3.5 - 5.0 mEq/L [facility] DEPARTMENT OF PATHOLOGY AND GENOMIC MEDICINE Chloride 108 98 - 112 mEq/L [facility] DEPARTMENT OF PATHOLOGY AND GENOMIC MEDICINE CO2 22 (L) 24 - 31 mmol/L [facility] DEPARTMENT OF PATHOLOGY AND GENOMIC MEDICINE Anion gap 12@ANIO 7 - 15 mEq/L [facility] DEPARTMENT OF PATHOLOGY AND GENOMIC MEDICINE BUN 15 7 - 18 mg/dL [facility] DEPARTMENT OF PATHOLOGY AND GENOMIC MEDICINE Creatinine 0.90 0.50 - 0.90 mg/dL [facility] DEPARTMENT OF PATHOLOGY AND GENOMIC MEDICINE Glucose 88 65 - 100 mg/dL [facility] DEPARTMENT OF PATHOLOGY AND GENOMIC MEDICINE Calcium 9.0 8.8 - 10.2 mg/dL [facility] OF PATHOLOGY AND GENOMIC MEDICINE Specimen Plasma specimen Performing Organization Address [facility] Centercode Phone Number [facility] [address] [place] [address] PATHOLOGY AND [employer] MEDICINE * MRA Renals W Wo Contrast [...] participate in the care of your patient [facility]-[id number] Procedure Note [facility], Radiology Results Incoming - 08/18/2018 1:37 PM [...] participate in the care of your patient [facility]-[id number] [facility] Organization Address City/State/Zipcode Phone Number [facility] [address] [place] [address] * CT Abdomen W Wo Contrast Pelvis [...] No acute abnormalities. IMPRESSION: No acute abnormality. [id number] Procedure Note Interface, Radiology Results Incoming - [...] No acute abnormalities. IMPRESSION: No acute abnormality. [id number] Performing Organization Address City/State/Zipcode Phone Number [facility] [address] [place] [address] * Urinalysis screen and microscopy, with reflex to culture (08/16/2018 4:00 AM CDT) Specimen site Clean catch [facility] DEPARTMENT OF PATHOLOGY AND GENOMIC MEDICINE Color, UA Yellow [facility] DEPARTMENT OF PATHOLOGY AND GENOMIC MEDICINE Appearance, UA Clear [facility] DEPARTMENT OF PATHOLOGY AND GENOMIC MEDICINE Specific gravity, UA 1.015 1.001 - 1.035 [facility] DEPARTMENT OF PATHOLOGY AND GENOMIC MEDICINE pH, UA 6.0 5.0 - 8.5 [facility] DEPARTMENT OF PATHOLOGY AND GENOMIC MEDICINE Protein, UA Negative Negative [facility] DEPARTMENT OF PATHOLOGY AND GENOMIC MEDICINE Glucose, UA Negative Negative [facility] DEPARTMENT OF PATHOLOGY AND GENOMIC MEDICINE Ketones, UA Negative Negative [facility] DEPARTMENT OF PATHOLOGY AND GENOMIC MEDICINE Bilirubin, UA Negative Negative [facility] DEPARTMENT OF PATHOLOGY AND GENOMIC MEDICINE Blood, UA Negative Negative [facility] DEPARTMENT OF PATHOLOGY AND GENOMIC MEDICINE Nitrite, UA Positive (A) Negative [facility] DEPARTMENT OF PATHOLOGY AND GENOMIC MEDICINE Urobilinogen, UA 4.0 (A) <2.0 [facility] DEPARTMENT OF PATHOLOGY AND GENOMIC MEDICINE Leukocyte esterase, UA Trace (A) Negative [facility] DEPARTMENT OF PATHOLOGY AND GENOMIC MEDICINE Epithelial cells, UA Many /HPF [facility] DEPARTMENT OF PATHOLOGY AND GENOMIC MEDICINE WBC, UA 22 (H) 0 - 5 /HPF [facility] DEPARTMENT OF PATHOLOGY AND GENOMIC MEDICINE RBC, UA 1 0 - 5 /HPF [facility] DEPARTMENT OF PATHOLOGY AND GENOMIC MEDICINE Bacteria, UA Few None seen [facility] DEPARTMENT OF PATHOLOGY AND GENOMIC MEDICINE Yeast, UA None seen [facility] DEPARTMENT OF PATHOLOGY AND GENOMIC MEDICINE Yeast with pseudohyphae, None seen [facility] DE[facility]MENT OF UA PATHOLOGY AND GENOMIC MEDICINE Specimen Urine Performing Organization Address City/State/Zipcode Phone Number [facility] DEPARTMENT OF [address] [place] [address] PATHOLOGY AND GENOMIC MEDICINE * Gram stain (08/16/2018 4:00 AM CDT) Gram stain result No WBC's or organisms seen. [facility] DEPARTMENT OF Comment: PATHOLOGY AND Specimen Information GENOMIC MEDICINE Specimen Source: Urine Specimen Site: Clean catch Specimen Urine Performing Organization Address City/State/Zipcode Phone Number [facility] DEPARTMENT OF [address] [place] [address] PATHOLOGY AND GENOMIC MEDICINE * Urine culture (08/16/2018 4:00 AM CDT) Urine culture isolate Escherichia coli [facility] DEPARTMENT OF >10-5 cfu/ml PATHOLOGY AND (A) GENOMIC MEDICINE Comment: Specimen Information Specimen Source: Urine Specimen Site: Clean catch Urine culture isolate Mixed Gram positive ezekiel [facility] DEPARTMENT OF 10-1 cfu/ml PATHOLOGY AND (A) [...] mcg/mL: Susceptible Escherichia coli Performing Organization Address [facility] Phone Number [facility] [address] [place] [address] PATHOLOGY AND GENOMIC MEDICINE * ECG 12 lead (08/15/2018 7:02 PM CDT) Ventricular rate 65 [facility] Atrial rate 65 [facility] OH interval 132 [facility] QRSD interval 88 [facility] QT interval 400 [facility] QTC interval 416 [facility] P axis 1 54 [facility] QRS axis 1 48 [facility] T wave axis 76 [facility] EKG impression Normal sinus [facility] MUSE rhythm-Nonspecific ST and T wave abnormality-Abnormal ECG-No previous ECGs available- Performing Organization Address [facility] Phone Number [facility] [address] [place] [address] * Thyroid stimulating hormone (08/15/2018 6:45 PM CDT) TSH 2.01 0.27 - 4.20 uIU/mL [facility] DEPARTMENT OF PATHOLOGY AND GENOMIC MEDICINE Specimen Plasma specimen Performing Organization Address City/[facility] Phone Number [place] [phone] PATHOLOGY AND GENOMIC MEDICINE * Lipase level (08/15/2018 6:45 PM CDT) Lipase 12 (L) 13 - 60 U/L [facility] DEPARTMENT OF PATHOLOGY AND GENOMIC MEDICINE Specimen Plasma specimen Performing Organization Address City/[facility] Phone Number [facility] [address] [place] [address] PATHOLOGY AND GENOMIC MEDICINE * Bilirubin direct (08/15/2018 6:45 PM CDT) Bilirubin direct <0.2 0.0 - 0.4 mg/dL [facility] DEPARTMENT OF PATHOLOGY AND GENOMIC MEDICINE Specimen Plasma specimen Performing Organization Address City/[facility] Phone Number [place] [address] [place] [address] PATHOLOGY AND GENOMIC MEDICINE * Amylase level (08/15/2018 6:45 PM CDT) Amylase 30 28 - 100 U/L [facility] DEPARTMENT OF PATHOLOGY AND GENOMIC MEDICINE Specimen Plasma specimen Performing Organization Address City/[facility] Phone Number [address] [place] [address] PATHOLOGY AND GENOMIC MEDICINE * Lipid panel (08/15/2018 6:45 PM CDT) Cholesterol 190 0 - 199 mg/dL [facility] DEPARTMENT OF PATHOLOGY AND GENOMIC MEDICINE Triglycerides 147 0 - 149 mg/dL [facility] DEPARTMENT OF PATHOLOGY AND GENOMIC MEDICINE HDL cholesterol 33 (L) 40 - 9,999 mg/dL [facility] DEPARTMENT OF PATHOLOGY AND GENOMIC MEDICINE LDL cholesterol 148 (H)Comment: Result 0 - 99 mg/dL [facility] DEPARTMENT OF obtained by direct LDL PATHOLOGY AND measurement GENOMIC MEDICINE Lipid panel See below [facility] DEPARTMENT OF interpretation Comment: PATHOLOGY AND Total Cholesterol GENOMIC MEDICINE (mg/dL) LDL Cholesterol (mg/dL) <200 Desirable <100 Optimal 200-239Borderline -zthx543-3 29Near or above optimal >=240High 130-159Borderline- high [...] specimen Performing Organization Address City/State/Zipcode Phone Number [place] [address] [place] [address] PATHOLOGY AND [employer] MEDICINE * Comprehensive metabolic panel (08/15/2018 6:45 PM CDT) Sodium 139 135 - 150 mEq/L [facility] DEPARTMENT OF PATHOLOGY AND GENOMIC MEDICINE Potassium 4.0 3.5 - 5.0 mEq/L [facility] DEPARTMENT OF PATHOLOGY AND GENOMIC MEDICINE Chloride 104 98 - 112 mEq/L [facility] DEPARTMENT OF PATHOLOGY AND GENOMIC MEDICINE CO2 23 (L) 24 - 31 mmol/L [facility] DEPARTMENT OF PATHOLOGY AND GENOMIC MEDICINE Anion gap 12@ANIO 7 - 15 mEq/L [facility] DEPARTMENT OF PATHOLOGY AND GENOMIC MEDICINE BUN 23 (H) 7 - 18 mg/dL [facility] DEPARTMENT OF PATHOLOGY AND GENOMIC MEDICINE Creatinine 1.00 (H) 0.50 - 0.90 mg/dL [facility] DEPARTMENT OF PATHOLOGY AND GENOMIC MEDICINE Glucose 110 (H) 65 - 100 mg/dL [facility] DEPARTMENT OF PATHOLOGY AND GENOMIC MEDICINE Calcium 9.2 8.8 - 10.2 mg/dL [facility] DEPARTMENT OF PATHOLOGY AND GENOMIC MEDICINE Protein 6.9 6.3 - 8.3 g/dL [facility] DEPARTMENT OF PATHOLOGY AND GENOMIC MEDICINE Albumin 3.2 (L) 3.5 - 5.0 g/dL [facility] DEPARTMENT OF PATHOLOGY AND GENOMIC MEDICINE A/G ratio 0.9 0.7 - 3.8 [facility] DEPARTMENT OF PATHOLOGY AND GENOMIC MEDICINE Alkaline phosphatase 113 (H) 0 - 104 U/L [facility] DEPARTMENT OF PATHOLOGY AND GENOMIC MEDICINE AST 20 10 - 35 U/L [facility] DEPARTMENT OF PATHOLOGY AND GENOMIC MEDICINE ALT 8 5 - 50 U/L [facility] DEPARTMENT OF PATHOLOGY AND GENOMIC MEDICINE Total bilirubin 0.3 0.2 - 1.2 mg/dL [facility] DEPARTMENT OF PATHOLOGY AND GENOMIC MEDICINE Specimen Plasma specimen Performing Organization Address City/State/Zipcode Phone Number [place] [address] [place] [address] PATHOLOGY AND GENOMIC MEDICINE after 12/25/2017 Insurance Payer Benefit Subscriber ID Type Phone Address Plan / Group [facility] MEDICARE AARP xxxxxxxxx O MEDICARE COMPLETE MCR Advance Directives Patient has advance care planning documents on file. For more information, ivis pires contact: Luan Kraft [address] [place] [address]
--- NOTE | 2018-12-26 16:38 | NUR ---
ROLL PANNER AT BEDSIDE
[2018-12-26 17:19] VITALS: BP 163/72
[2018-12-26 17:30] VITALS: BP 163/72
[2018-12-26] MEDS ORDERED: ACETAMINOPHEN 325 MG TAB PO PRN (17:30)
[2018-12-26 17:39] VITALS: BP 163/72
[2018-12-26] MEDS: MORPHINE SULFATE INJ 4 MG/ML INJ 1ML IV PRN (17:43)
[2018-12-26] MEDS: FAMOTIDINE 20 MG TAB PO SCH (17:43)
[2018-12-26] MEDS ORDERED: ACETAMINOPHEN/CODEINE 300MG - 30MG TAB PO SCH (18:00)
[2018-12-26] MEDS: NICOTINE 7 MG PATCH TOP SCH (18:00)
--- NOTE | 2018-12-26 18:25 | NUR ---
Pt admitted to the floor at this time. Pt is aox4 and able to verbalize needs. Denies any pain at this time. Pt still having some pain to epigastric area. Pt was seen by Dr. Levine and Dr. Fay.
--- NOTE | 2018-12-26 19:00 | NUR ---
Received report from previous nurse. Patient in bed. Call light within reach.
[2018-12-26 19:35] VITALS: BP 141/67
[2018-12-26 20:22] LABS: BASOPHILS % 0.7 % (0.0-1.0); EOSINOPHILS # (AUTO) 0.2 (0.0-0.4); EOSINOPHILS % 3.2 % (0.0-6.0); HEMATOCRIT 34.3 % (34.2-44.1); HEMOGLOBIN 11.4 g/dL (12.0-16.0); LYMPHOCYTES # (AUTO) 2.2 (1.0-3.2); LYMPHOCYTES % 39.3 % (18.0-39.1); MEAN CORPUSCULAR HEMOGLOBIN 26.5 pg (28-32); MEAN CORPUSCULAR HGB CONC 33.2 g/dL (31-35); MEAN CORPUSCULAR VOLUME 79.8 fL (81-99); MONOCYTES # (AUTO) 0.4 (0.2-0.8); MONOCYTES % 6.5 % (4.4-11.3); NEUTROPHILS # (AUTO) 2.8 (2.1-6.9); NEUTROPHILS % 49.9 % (38.7-80.0); PLATELET COUNT 315 x10e3/uL (140-360); RED CELL DISTRIBUTION WIDTH 14.7 % (11.7-14.4)
[2018-12-26 21:00] LABS: CREATINE KINASE MB 1.8 ng/mL (0-5.0)
[2018-12-26] MEDS ORDERED: ATORVASTATIN 40 MG TAB PO SCH (21:00)
[2018-12-26] MEDS ORDERED: ATORVASTATIN 10 MG TAB PO SCH (21:00)
[2018-12-26] MEDS: ACETAMINOPHEN/CODEINE 300MG - 30MG TAB PO PRN (21:36)
[2018-12-27] VITALS (9 sets, daily range): BP systolic 138–166; BP diastolic 68–76
[2018-12-27 01:27] LABS: CREATINE KINASE MB 1.8 ng/mL (0-5.0)
--- NOTE | 2018-12-27 03:40 | NUR ---
Call light within reach. No pain or distress. Patient asleep in bed.
--- NOTE | 2018-12-27 04:31 | History and Physical ---
HISTORY: The patient is a [id number] with a past medical history positive for coronary artery disease, status post stent placement, hypertension, hypercholesterolemia, came here with chest pain. REVIEW OF SYSTEMS: CARDIOVASCULAR: Chest pain and shortness of breath. RESPIRATORY: Shortness of breath. No cough. GASTROINTESTINAL: No nausea. No vomiting. She got diarrhea yesterday. She has dysuria, but no frequency. ALLERGIES: SHE IS NOT ALLERGIC TO ANY MEDICATIONS. SOCIAL HISTORY: She smokes. She does not drink. She quit smoking few weeks ago. PAST MEDICAL HISORY: Coronary artery disease, status post stent placement, hypertension, hypercholesterolemia. PHYSICAL EXAMINATION: HEART: Showed regular rhythm. No murmur sound. LUNGS: Clear bilaterally. ABDOMEN: Soft. EXTREMITIES: Show no evidence of cyanosis or hematoma. VITAL SIGNS: Blood pressure 161/83, temperature 98.5, heart rate 60 per minute, respiratory rate 18 per minute, oxygen saturation 98%. LABORATORY DATA: On BMP, sodium 135, potassium 3.8, chloride 106, CO2 of 22, BUN 22, creatinine 1.0, glucose 102. Calcium 9.8, total bilirubin 0.4, AST 20, ALT 14, alkaline phosphatase 135. CK-MB 1.40. Troponin 0.013. Total protein 6.6, albumin 3.9, globulin 2.7, amylase , lipase 19. On CBC, white blood count 5.3, hemoglobin 13.2, hematocrit 40.0, platelet count 332,000. Urinalysis negative. Coagulation shows PT 13.0, INR , PTT 31.7. Chest x-ray showed no significant abnormality essentially. EKG showed normal sinus rhythm. No evidence of any . FINAL IMPRESSION: 1. Coronary artery disease unstable angina. 2. Hypertension. 3. Hypercholesterolemia. PLAN OF TREATMENT: We are going to do 2 more sets of cardiac enzymes. The patient . She is going to be on aspirin 81 mg daily, Lipitor 40 mg daily, Pepcid 20 mg twice a day. Continue with the metoprolol 25 mg daily, morphine 2 mg IV q.3 hours as needed, as needed for nausea. I am going to start her on Tylenol also, 325 mg p.o. every 4 hours as needed for pain and fever. . Dr. Adrien Willingham has been consulted from Cardiology. DIET: Low salt diet. MD BRUNILDA Castillo/JERRY /[id number]
[2018-12-27 05:13] LABS: BASOPHILS # (AUTO) 0.1 (0.0-0.1); BASOPHILS % 1.1 % (0.0-1.0); EOSINOPHILS # (AUTO) 0.2 (0.0-0.4); HEMATOCRIT 32.1 % (34.2-44.1); HEMOGLOBIN 10.7 g/dL (12.0-16.0); LYMPHOCYTES % 37.9 % (18.0-39.1); MEAN CORPUSCULAR HEMOGLOBIN 26.6 pg (28-32); MEAN CORPUSCULAR HGB CONC 33.3 g/dL (31-35); MEAN CORPUSCULAR VOLUME 79.9 fL (81-99); MONOCYTES # (AUTO) 0.3 (0.2-0.8); MONOCYTES % 6.2 % (4.4-11.3); NEUTROPHILS # (AUTO) 2.8 (2.1-6.9); NEUTROPHILS % 51.4 % (38.7-80.0); PLATELET COUNT 267 x10e3/uL (140-360); RED BLOOD COUNT 4.02 x10e6/uL (3.6-5.1); RED CELL DISTRIBUTION WIDTH 14.6 % (11.7-14.4)
[2018-12-27] MEDS: MORPHINE SULFATE INJ 4 MG/ML INJ 1ML IV PRN (05:23)
--- NOTE | 2018-12-27 05:36 | Consultation ---
DATE OF CONSULTATION: 12/26/2018 Cardiology Consultation REASON FOR CONSULTATION: Chest pain. HISTORY OF PRESENT ILLNESS: This is a 68-year-old woman with history of coronary artery disease, status post stent, hypertension, hyperlipidemia, carotid artery disease, status post right carotid endarterectomy, and history of CVA, who presented with complaints of chest pain. The patient reports that she woke up this morning with chest pain at approximately 01:45 a.m. She describes this pain as central chest pain with squeezing in character. The pain was 10/10 in severity and was associated with nausea. There was no shortness of breath or diaphoresis. The pain did not radiate. She did not notice any aggravating or alleviating factors. The pain lasted hours until she presented to the ER for further evaluation. She indicates that she was given sublingual nitroglycerin without relief. The patient also denies any edema, PND, or palpitations. She does endorse chronic orthopnea. REVIEW OF SYSTEMS: Negative as per HPI. PAST MEDICAL HISTORY: 1. Coronary artery disease, status post prior stents with chronic occlusion of the RCA with collaterals. 2. Carotid artery disease, status post right carotid endarterectomy. 3. Hypertension. 4. Hyperlipidemia. 5. History of CVA. PAST SURGICAL HISTORY: 1. Hysterectomy. 2. Right carotid endarterectomy. ALLERGIES: NO KNOWN DRUG ALLERGIES. MEDICATIONS: Please see medication list. SOCIAL HISTORY: She smokes half-a-pack a day for over 30 years. No illicit drugs. Occasional alcohol. FAMILY HISTORY: Noncontributory to current illness. PHYSICAL EXAMINATION: VITAL SIGNS: Temperature 96.6 degrees, pulse 62, respiratory rate 17, blood pressure 163/72, and oxygen saturation 97% on room air. GENERAL: Awake and alert. Well-developed and well-nourished woman, in no acute distress. HEENT: Normocephalic and atraumatic. Pupils are equal. No scleral icterus. NECK: Supple. No thyromegaly or cervical lymphadenopathy. No carotid bruits. Right CEA incision is present. LUNGS: Clear to auscultation bilaterally. No wheezes or crackles. CARDIOVASCULAR: Normal rate, regular rhythm. No murmur. Normal S1 and S2. ABDOMEN: Soft and nontender. EXTREMITIES: No edema. NEUROLOGIC: Nonfocal exam. CARDIAC MEDICATIONS: 1. Atorvastatin 40 mg p.o. at bedtime. 2. 20 mg p.o. daily. 3. Metoprolol succinate 25 mg p.o. daily. 4. Aspirin 81 mg p.o. daily. LABORATORY DATA: Labs; WBC is 5.67, hemoglobin 11.4, hematocrit 34.3, and platelets are 315. Sodium 135, potassium 3.8, chloride 106, CO2 of 22, BUN 22, creatinine 1, and troponin 0.018. Chest x-ray, no acute cardiopulmonary abnormalities. EKG, normal sinus rhythm with possible left atrial enlargement. IMPRESSION: 1. Chest pain. 2. 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 3. Carotid artery disease, status post right carotid endarterectomy. 4. Infrarenal aortic aneurysm measuring 2.7 x 3 cm. 5. Hypertension, uncontrolled. 6. Hyperlipidemia. RECOMMENDATIONS: Increase lisinopril due to poorly-controlled blood pressure. We will titrate outpatient antianginal therapy, fasting lipid panel in a.m., trend cardiac enzymes to rule out myocardial infarction. Given recent cardiac catheterization without need for revascularization based on FFR, no further cardiac evaluation is indicated if the patient is ruled out for myocardial infarction. The patient's last CT of the abdomen and pelvis in May 2018, with stable fusiform dilation of the infrarenal aorta measuring 2.7 x 3 cm. We will need further surveillance as an outpatient. Continue home cardiac medications otherwise. Thank you for this consult. We will continue to follow. Natacha Blood MD [facility]/MODL /[id number]
[2018-12-27 05:46] LABS: ALANINE AMINOTRANSFERASE 11 IU/L (0-55); ALBUMIN 2.8 g/dL (3.5-5.0); ALBUMIN/GLOBULIN RATIO 1.1 (0.8-2.0); ALKALINE PHOSPHATASE 100 IU/L (40-150); ANION GAP 9.8 mmol/L (8-16); BLOOD UREA NITROGEN 20 mg/dL (7-26); BUN/CREATININE RATIO 24 (6-25); CALCIUM 8.6 mg/dL (8.4-10.2); CARBON DIOXIDE 22 mmol/L (22-29); CHLORIDE 108 mmol/L (98-107); CHOL/HDL RATIO 6.3 (3.0-3.6); CHOLESTEROL 189 MD/DL (0-199); CREATINE KINASE MB 1.3 ng/mL (0-5.0); CREATININE, SERUM 0.85 mg/dL (0.57-1.11); EST GLOMERULAR FILTRATION RATE > 60 ML/MIN (60-); GLUCOSE 87 mg/dL (74-118); HDL CHOLESTEROL 30 MG/DL (40-60); LDL CHOLESTEROL 129 MG/DL (60-130); POTASSIUM 3.8 mmol/L (3.5-5.1); SODIUM 136 mmol/L (136-145); TRIGLYCERIDES 152 MG/DL (0-149)
--- NOTE | 2018-12-27 07:35 | NUR ---
REPORT GIVEN TO ONCOMING NURSE. CALL LIGHT WITHIN REACH.
[2018-12-27] MEDS: LISINOPRIL 20 MG TAB PO SCH (08:44)
[2018-12-27] MEDS: ASPIRIN 81 MG CHEW TAB PO SCH (08:44)
[2018-12-27] MEDS: FAMOTIDINE 20 MG TAB PO SCH (08:44)
[2018-12-27] MEDS: METOPROLOL SUCCINATE 25 MG TAB XL PO SCH (08:46)
[2018-12-27] MEDS: NICOTINE 7 MG PATCH TOP SCH (08:47)
[2018-12-27] MEDS: ACETAMINOPHEN/CODEINE 300MG - 30MG TAB PO PRN ×3 (08:50→19:30)
[2018-12-27] MEDS ORDERED: METOPROLOL SUCCINATE 25 MG TAB XL PO SCH (09:00)
[2018-12-27] MEDS ORDERED: LISINOPRIL 20 MG TAB PO SCH (09:00)
[2018-12-27] MEDS ORDERED: LISINOPRIL 10 MG TAB PO SCH (09:00)
--- NOTE | 2018-12-27 13:07 | Progress Note ---
DATE: 12/27/2018 Cardiology Progress Note SUBJECTIVE: The patient continues to complain of chest pain. She states there was improvement in her chest pain after the GI cocktail. She denies any shortness of breath. OBJECTIVE: VITAL SIGNS: Temperature 97.3 degrees, pulse 70, respiratory rate 18, blood pressure 138/72, oxygen saturation 96% on room air. GENERAL: Awake, alert, no acute distress. LUNGS: Clear to auscultation bilaterally. No wheezes or crackles. CARDIOVASCULAR: Normal rate, regular rhythm. No murmur. Normal S1, S2. ABDOMEN: Soft and nontender. EXTREMITIES: No edema. CARDIAC MEDICATIONS: Metoprolol succinate 50 mg p.o. daily, lisinopril 40 mg p.o. daily, aspirin 81 mg p.o. daily, atorvastatin 80 mg p.o. at bedtime. LABORATORY DATA: WBC 5.36, hemoglobin 10.7, hematocrit 32.1, platelets 267. Sodium 136, potassium 3.8, chloride 108, CO2 22, BUN 20, creatinine 0.85. Troponin 0.007. LDL 129. Telemetry, normal sinus rhythm. IMPRESSION: 1. Chest pain. 2. Coronary artery disease, prior stent with known RUG WEAVER of the RCA with collateral flow and moderate coronary artery disease, otherwise on most recent cardiac catheterization in May 2018. 3. Carotid artery disease, status post right carotid endarterectomy. 4. Infrarenal aortic aneurysm measuring 2.7 x 3 cm. 5. Hypertension. 6. Hyperlipidemia. RECOMMENDATIONS: The patient ruled out for myocardial infarction with serial cardiac biomarkers. Most recent cardiac catheterization as above, did not have indication for revascularization based on FFR measurement. No further cardiac evaluation is indicated at this time. Titrate up antianginal therapies as tolerated. Given elevated LDL, we will increase atorvastatin. The patient's last CT of the abdomen and pelvis was less than one year prior with stable fusiform dilation of the infrarenal aorta. She will need further surveillance of this abdominal aortic aneurysm as an outpatient. Continue current cardiac medications. Thank you for this consult. We will continue to follow. Natacha Blood MD [facility]/MODL /[id number]
--- NOTE | 2018-12-27 13:32 | Diagnostic Imaging Report ---
EXAM: CT Abdomen and Pelvis WITH contrast INDICATION: Epigastric pain, diarrhea COMPARISON: CT abdomen/pelvis, 05/06/2018 TECHNIQUE: Abdomen and pelvis were scanned utilizing a multidetector helical scanner from the lung base to the pubic symphysis after administration of IV contrast. Coronal and sagittal reformations were obtained. Routine protocol was performed. Scan was performed when during portal venous phase. Dose modulation, iterative reconstruction, and/or weight based adjustment of the mA/kV was utilized to reduce the radiation dose to as low as reasonably achievable. IV CONTRAST: 100 mL of Isovue-370 ORAL CONTRAST: 450 cc water RADIATION DOSE: Total DLP: 260.05 mGy*cm Estimated effective dose: (DLP x 0.015 x size factor) mSv COMPLICATIONS: None FINDINGS: LINES and TUBES: None. LOWER THORAX: Lung bases clear. Calcified granuloma left lower lobe. Heart size normal. HEPATOBILIARY: There are small low attenuating lesions in the right and left lobes of the liver measuring up to 6 mm. These are somewhat less well seen than on the previous exam due to differences in bolus timing. The appearance is stable with no new abnormalities. There is mild prominence of the extrahepatic common bile duct, compatible with postcholecystectomy reservoir effect. GALLBLADDER: Interval surgical absence of the gallbladder with cholecystectomy clips. SPLEEN: No splenomegaly. There are calcified granulomata in the spleen. PANCREAS: No focal masses or ductal dilatation. ADRENALS: No adrenal nodules KIDNEYS/URETERS: Kidneys enhance symmetrically. No hydronephrosis. Stable small cyst lateral right kidney. No enhancing solid masses. No stones. GI TRACT: No abnormal distention or evidence of bowel obstruction. Mild wall thickening of jejunal loops (series 2, image 37). Moderate retained stool in the colon. The appendix is not conspicuously visualized. There is no inflammation in the right lower quadrant to suggest appendicitis. PELVIC ORGANS/BLADDER: Urinary bladder appears unremarkable. The uterus is not visualized and may be absent. No discrete abnormal mass or fluid collection in the pelvis. LYMPH NODES: No dominant lymph node mass is seen in the abdomen, retroperitoneum or pelvis. VESSELS: The abdominal aorta and iliac arteries are atherosclerotic with extensive calcified plaque. Again noted is an infrarenal abdominal aortic aneurysm which measures 2.7 x 3.0 cm, stable from previous exam. IVC and portal system appear unremarkable. PERITONEUM / RETROPERITONEUM: No pneumoperitoneum or ascites. BONES: No acute or suspicious bony lesions. SOFT TISSUES: Superficial surrounding soft tissue unremarkable. IMPRESSION: 1. Mild wall thickening of jejunal loops which may be seen with infectious or inflammatory enteritis. 2. Scattered small low density hepatic lesions, stable. 3. Interval cholecystectomy. 4. Stable infrarenal abdominal aortic aneurysm with diffuse atherosclerotic plaque and calcification. Staff: Juliet Signed by: Dr. Justin Chung M.D. on 12/27/2018 1:29 PM
[2018-12-27] MEDS ORDERED: SODIUM CHLORIDE 0.9% 100 ML 100 ML ONE (13:38)
[2018-12-27] MEDS ORDERED: IOPAMIDOL 370 MG/ML 200 ML INFUS..BTL INJ ONE (13:38)
--- NOTE | 2018-12-27 14:46 | NUR ---
estee DUBOIS to give ct results
--- NOTE | 2018-12-27 15:07 | Progress Note ---
DATE: Internal Medicine Progress Note SUBJECTIVE: The patient is complaining of epigastric pain, more than chest pain. OBJECTIVE: VITAL SIGNS: Blood pressure 138/72, temperature , heart rate 70 per minute, respiratory rate is 18 per minute, and oxygen saturation 96%. HEART: Showed regular rhythm. No murmur or added sound. LUNGS: Clear bilaterally. ABDOMEN: Soft. Tenderness in the epigastric area. LABORATORY DATA: BMP: Sodium 136, potassium 3.8, chloride 108, CO2 22, BUN 20, creatinine 0.85, and glucose 87. CBC: White blood count 5.36, hemoglobin 10.7, hematocrit 32.1, and platelet count 267,000. PT 13.0, INR 0.90, and PTT 31.7. AST 17, ALT 11, total bilirubin 0.5, and alkaline phosphatase 100. EKG showed normal sinus rhythm. No evidence of any ST segment elevation or depression. Echocardiogram, an ejection fraction of 50%. No evidence of pericardial effusion or valvular abnormality. Trace tricuspid regurgitation. FINAL IMPRESSION: 1. Severe epigastric pain. 2. History of coronary artery disease, status post stent placement. 3. Hypertension. 4. Hypercholesterolemia. PLAN OF TREATMENT: We are going to get Gastroenterology consult by Dr. Cedrick Banuelos and CT of the abdomen and pelvis with contrast because of epigastric pain. It does not seem to be a cardiac source for epigastric pain since the EKG is normal, troponin x3 is completely normal. Dr. Adrien Willingham of Cardiology is seeing the patient also, going to consult Dr. Cedrick Banuelos for Gastroenterology. We are going to start her on Protonix 40 mg IV twice a day. Continue in the meantime nicotine patch 7 mg daily, Zofran 4 mg IV q.4 hours as needed and Pepcid Protonix IV. Continue lisinopril 40 mg daily, aspirin 81 mg daily, metoprolol 50 mg daily, Lipitor 80 mg daily, morphine 2 mg IV q.3 hours and Tylenol with Codeine q.4 hours as needed. . MD BRUNILDA Castillo/JERRY /[id number]
[2018-12-27] MEDS ORDERED: LEVOFLOXACIN 500MG/D5W 100ML 100 ML IV SCH (15:15)
--- NOTE | 2018-12-27 15:54 | Progress Note ---
DATE: SUBJECTIVE: because the epigastric pain seems to be more gastrointestinal in origin versus cardiac in origin. The patient will continue with the current diet will decide on endoscopy. MD BRUNILDA Castillo/JERRY /[id number]
[2018-12-27] MEDS: METRONIDAZOLE 500MG/NS 100ML 100 ML IV SCH ×2 (16:16→21:08)
[2018-12-27] MEDS ORDERED: LEVOFLOXACIN 500MG/D5W 100ML 100 ML IV ONE (16:17)
[2018-12-27] MEDS ORDERED: METRONIDAZOLE 500MG/NS 100ML 100 ML IV ONE (16:17)
[2018-12-27] MEDS ORDERED: SODIUM CHLORIDE 0.9% 250ML 250 ML ONE (16:18)
[2018-12-27] MEDS: LEVOFLOXACIN 500MG/D5W 100ML 100 ML IV SCH (17:31)
[2018-12-27] MEDS: PANTOPRAZOLE 40 MG 10ML VIAL IV SCH (17:31)
[2018-12-27] MEDS: ATORVASTATIN 40 MG TAB PO SCH (20:07)
[2018-12-28] VITALS (9 sets, daily range): BP systolic 120–186; BP diastolic 62–85
[2018-12-28] MEDS ORDERED: DONNATAL/LIDOCAINE/MAALOX 30 ML SUSP PO ONE (02:45)
[2018-12-28] MEDS: MORPHINE SULFATE INJ 4 MG/ML INJ 1ML IV PRN ×3 (04:18→20:11)
[2018-12-28] MEDS: METRONIDAZOLE 500MG/NS 100ML 100 ML IV SCH ×3 (05:19→21:00)
[2018-12-28] MEDS: HYDRALAZINE HCL 20 MG/ML VIAL IV PRN (05:33)
[2018-12-28] MEDS: ACETAMINOPHEN/CODEINE 300MG - 30MG TAB PO PRN ×2 (06:31→17:11)
--- NOTE | 2018-12-28 07:38 | NUR ---
pt resting in bed, c/o abd pain. per report and patient, abd pain induced after receiving GI cocktail. currently 02/12. dr diallo called to check on pt, updated on response to medication. bp was reported to have elevated, currently WNL. will continue to monitor.
[2018-12-28] MEDS: LISINOPRIL 20 MG TAB PO SCH (09:03)
[2018-12-28] MEDS: ASPIRIN 81 MG CHEW TAB PO SCH (09:03)
[2018-12-28] MEDS: PANTOPRAZOLE 40 MG 10ML VIAL IV SCH ×2 (09:03→17:11)
[2018-12-28] MEDS: NICOTINE 7 MG PATCH TOP SCH (09:04)
[2018-12-28] MEDS: METOPROLOL SUCCINATE 25 MG TAB XL PO SCH (09:04)
[2018-12-28] MEDS: ONDANSETRON HCL INJ 2MG/ML 2ML 2 MG/ML VIAL IV PRN (12:17)
--- NOTE | 2018-12-28 13:01 | Progress Note ---
DATE: Cardiology Progress Note SUBJECTIVE: The patient reports mild epigastric discomfort. No further chest pain. OBJECTIVE: VITAL SIGNS: Temperature 96.7, heart rate 65, respirations 18, blood pressure 149/72, and oxygen saturation 98% on room air. GENERAL: She is well appearing, in no apparent distress. CARDIOVASCULAR: Regular rate and rhythm. No murmurs. LUNGS: Clear to auscultation. ABDOMEN: Soft and nontender. EXTREMITIES: No edema. LABORATORY DATA: All laboratory data reviewed. Negative troponins x3. Cardiovascular medications reviewed. Telemetry monitoring revealed normal sinus rhythm. IMPRESSION: 1. Precordial pain. 2. Epigastric pain. 3. Coronary artery disease with known chronic total occlusion of the right coronary artery with collateral flow from the left coronary system. 4. Carotid artery disease, status post right carotid endarterectomy. 5. Hypertension. 6. Hyperlipidemia. RECOMMENDATIONS: There is no evidence of acute coronary syndrome as her troponins are within normal limits. The patient does have moderate coronary artery disease in the left coronary artery system; however, FFR negative. No further cardiac testing is warranted. I have titrated antianginal therapies and continued current cardiovascular medications. Abdominal discomfort treatment per primary team. The infrarenal abdominal aortic aneurysm is stable at 2.7 x 3 cm. No endovascular indications are necessary at this point in time. Adrien Willingham DO [facility]/MODL /[id number]
--- NOTE | 2018-12-28 13:33 | NUR ---
SOCIAL WORK INITIAL ASSESSMENT Chief Crew Scheduler to bedside to discuss plan of care with patient/family. CM/SW role and care transitions discussed. Anticipated discharge plan discussed along with duration of care. CM/SW discussed patients right to make decisions in care. CM/SW work hours given. Patient lives: IN HOUSE BY SELF Admit/Transfer: VIA ED POA/Emergency contact: FRIEND ALEJANDRINA LARRY [phone] Current/Previous Home Health: NONE PCP/Follow-up Care: NONE -DR KRISHNAMURTHY IS GIVING REFERRALS Current/Previous DME: NONE Other Services: NONE Employment Status: RETIRED Areas of Concerns: CURRENT EVERY DAY SMOKER Referral Needs: NONE Education Needs: NONE IMM/GARCIA given and signed (if applicable): GARCIA Goal for discharge: RETURN HOME CM/SW left business card at the bedside with contact information. Name and number was also written on the patients whiteboard. Patient verbalized understanding of discussion. CM will follow-up with ongoing discharge and transition of care needs.
[2018-12-28] MEDS: LEVOFLOXACIN 500MG/D5W 100ML 100 ML IV SCH (17:11)
[2018-12-28] MEDS: ATORVASTATIN 40 MG TAB PO SCH (20:11)
[2018-12-29] VITALS (7 sets, daily range): BP systolic 138–185; BP diastolic 63–91
[2018-12-29] MEDS: METRONIDAZOLE 500MG/NS 100ML 100 ML IV SCH ×4 (04:02→21:16)
[2018-12-29] MEDS: MORPHINE SULFATE INJ 4 MG/ML INJ 1ML IV PRN ×5 (04:02→21:22)
[2018-12-29 05:33] LABS: BASOPHILS # (AUTO) 0.1 (0.0-0.1); BASOPHILS % 1.2 % (0.0-1.0); EOSINOPHILS # (AUTO) 0.2 (0.0-0.4); EOSINOPHILS % 4.9 % (0.0-6.0); HEMATOCRIT 34.8 % (34.2-44.1); HEMOGLOBIN 11.3 g/dL (12.0-16.0); LYMPHOCYTES # (AUTO) 1.6 (1.0-3.2); LYMPHOCYTES % 38.2 % (18.0-39.1); MEAN CORPUSCULAR HEMOGLOBIN 26.5 pg (28-32); MEAN CORPUSCULAR HGB CONC 32.5 g/dL (31-35); MEAN CORPUSCULAR VOLUME 81.7 fL (81-99); MONOCYTES # (AUTO) 0.2 (0.2-0.8); MONOCYTES % 5.6 % (4.4-11.3); NEUTROPHILS # (AUTO) 2.1 (2.1-6.9); NEUTROPHILS % 49.9 % (38.7-80.0); PLATELET COUNT 261 x10e3/uL (140-360); RED BLOOD COUNT 4.26 x10e6/uL (3.6-5.1); RED CELL DISTRIBUTION WIDTH 14.9 % (11.7-14.4)
[2018-12-29 06:05] LABS: ALBUMIN/GLOBULIN RATIO 1.1 (0.8-2.0); ANION GAP 11.4 mmol/L (8-16); CALCIUM 8.9 mg/dL (8.4-10.2); CREATININE, SERUM 1.04 mg/dL (0.57-1.11); POTASSIUM 4.4 mmol/L (3.5-5.1)
[2018-12-29 06:21] LABS: % IRON SATURATION 6 % (15-50); IRON 22 ug/dL (50-170); TOTAL IRON BINDING CAPACITY 347 ug/dL (261-478); TRANSFERRIN 248 mg/dL (180-382)
[2018-12-29 07:00] LABS: FOLATE 5.4 ng/mL (7.0-15.4)
[2018-12-29] MEDS: METOPROLOL SUCCINATE 25 MG TAB XL PO SCH (09:00)
[2018-12-29] MEDS: PANTOPRAZOLE 40 MG 10ML VIAL IV SCH ×2 (09:01→16:55)
[2018-12-29] MEDS: ASPIRIN 81 MG CHEW TAB PO SCH (09:01)
[2018-12-29] MEDS: LISINOPRIL 20 MG TAB PO SCH (09:02)
[2018-12-29] MEDS: NICOTINE 7 MG PATCH TOP SCH (09:02)
[2018-12-29] MEDS ORDERED: SODIUM CHLORIDE 0.9% 250ML 250 ML ONE ×2 (11:24→21:33)
[2018-12-29] MEDS: LEVOFLOXACIN 500MG/D5W 100ML 100 ML IV SCH (14:04)
--- NOTE | 2018-12-29 16:05 | NUR ---
Visit made by the Spiritual Care Department Pastoral Visitor, Juan J Bhat. PV provided pastoral presence, hospitality, and supportive listening. Pastoral Visitor informed pt/family of the scope of [employer] and availability. JOSE ALEJANDRO MENDOZA Medical Customer Service Representative Spiritual Care Department O: [phone] Pager: [phone] ([phone] number calling from)
--- NOTE | 2018-12-29 18:36 | NUR ---
received pt to floor aa0x3. pt is in no s.s of distress. received report from alfa in obs. state pt is scheduled for scoping tomorrow with md george diallo. pt has now signed consent , instructed to be npo at midnight. pt verbalizes understanding . instructed to call for assistance if needed. will introduce to shift boss in a couple minutes
--- NOTE | 2018-12-29 19:56 | NUR ---
RECEIVED PT IN BED AOX3 .PT C/O PAIN .PT HAS TELE SHOWS SR .PT IS NPO AFTER MIDNIGHT FOR NTH THE PROCEDURE .CONTINUE TO MONITOR
[2018-12-29] MEDS: ATORVASTATIN 40 MG TAB PO SCH (21:16)
[2018-12-30] VITALS (9 sets, daily range): BP systolic 139–191; BP diastolic 68–89
[2018-12-30] MEDS: MORPHINE SULFATE INJ 4 MG/ML INJ 1ML IV PRN ×5 (04:09→21:04)
[2018-12-30] MEDS: METRONIDAZOLE 500MG/NS 100ML 100 ML IV SCH ×3 (06:00→21:03)
[2018-12-30 07:02] LABS: BASOPHILS % 0.6 % (0.0-1.0); EOSINOPHILS # (AUTO) 0.2 (0.0-0.4); EOSINOPHILS % 4.2 % (0.0-6.0); HEMATOCRIT 34.8 % (34.2-44.1); HEMOGLOBIN 11.3 g/dL (12.0-16.0); LYMPHOCYTES # (AUTO) 1.8 (1.0-3.2); LYMPHOCYTES % 36.8 % (18.0-39.1); MEAN CORPUSCULAR HEMOGLOBIN 26.3 pg (28-32); MEAN CORPUSCULAR HGB CONC 32.5 g/dL (31-35); MEAN CORPUSCULAR VOLUME 81.1 fL (81-99); MONOCYTES # (AUTO) 0.3 (0.2-0.8); MONOCYTES % 5.8 % (4.4-11.3); NEUTROPHILS # (AUTO) 2.6 (2.1-6.9); NEUTROPHILS % 52.4 % (38.7-80.0); PLATELET COUNT 280 x10e3/uL (140-360); RED BLOOD COUNT 4.29 x10e6/uL (3.6-5.1); RED CELL DISTRIBUTION WIDTH 14.7 % (11.7-14.4)
[2018-12-30 07:17] LABS: ALBUMIN 3.1 g/dL (3.5-5.0); ANION GAP 10.6 mmol/L (8-16); CALCIUM 8.7 mg/dL (8.4-10.2); CREATININE, SERUM 0.98 mg/dL (0.57-1.11); POTASSIUM 4.6 mmol/L (3.5-5.1)
--- NOTE | 2018-12-30 07:45 | NUR ---
PAGED DR. Javi KURTZ FOR CONSENT ORDERS. PT STATES SHE WAS TOLD SHE WOULD HAVE AN EGD TODAY BUT THERE IS NO ORDER FOR CONSENT. AWAITING CALL BACK.
--- NOTE | 2018-12-30 07:51 | NUR ---
PT C/O PAIN OF PAIN AND GIVEN ORDERED PAIN MEDICATION .CALL LIGHT WITH IN REACH .GIVEN BEDSIDE REPORT
[2018-12-30] MEDS: METOPROLOL SUCCINATE 25 MG TAB XL PO SCH (07:55)
[2018-12-30] MEDS: LISINOPRIL 20 MG TAB PO SCH (07:55)
[2018-12-30] MEDS: PANTOPRAZOLE 40 MG 10ML VIAL IV SCH (08:20)
[2018-12-30] MEDS: NICOTINE 7 MG PATCH TOP SCH (08:20)
--- NOTE | 2018-12-30 14:40 | NUR ---
PT TO ENDO AT THIS TIME VIA STRETCHER.
--- NOTE | 2018-12-30 15:51 | NUR ---
PT RETURNED FROM EGD VIA STRETCHER. DROWSY BUT EASY TO WAKE. ASSISTED TO BED. CALL LIGHT WITHIN REACH. BED ALARM ON WILL CONTINUE TO MONITOR.
--- NOTE | 2018-12-30 15:56 | NUR ---
PER DR. Javi KURTZ MONITOR PT TODAY FOR PAIN MANAGEMENT. MAY D/C HOME TOMORROW.
--- NOTE | 2018-12-30 16:00 | NUR ---
The pt. was received from 109 t0 213 in stable condition s/p EGD with biopsy and is awake alert oriented.
[2018-12-30] MEDS: SUCRALFATE 1 GM TAB PO SCH ×2 (16:06→21:03)
--- NOTE | 2018-12-30 17:15 | Progress Note ---
DATE: 12/30/2018 Cardiology Progress Note SUBJECTIVE: No major events overnight. OBJECTIVE: VITAL SIGNS: Temperature 98.1, pulse 64, respiratory rate 14, blood pressure 162/73, satting 98% on room air. GENERAL: Elderly female, in no acute distress. CARDIOVASCULAR: Regular rate and rhythm. No murmur, rubs, or gallops. LUNGS: Clear to auscultation bilaterally. ABDOMEN: Soft, nontender, nondistended. NEURO and PSYCH: Alert and oriented to person, place, and time. Normal affect. INPATIENT MEDICATIONS: Reviewed. LABORATORY DATA: Reviewed. TELEMETRY DATA: Reviewed. IMAGING DATA: Reviewed. ASSESSMENT AND PLAN: 1. Precordial pain. 2. Epigastric pain. 3. Coronary artery disease with chronic total occlusion of the right coronary artery with collaterals from the left system. 4. Carotid artery disease, status post right carotid endarterectomy. 5. Hypertension. 6. Hyperlipidemia. RECOMMENDATIONS: Rule out for acute AK with serial troponins. Overall, doing well. Had coronary angiogram last year showing TABLE INSPECTOR of the RCA and moderate stenosis of the LAD, which was negative for obstruction by FFR. Continue current cardiovascular medications. Thank you for this consult. We will continue to follow. MD DANNY Slater/JERRY /[id number]
[2018-12-30] MEDS: LEVOFLOXACIN 500MG/D5W 100ML 100 ML IV SCH (17:25)
[2018-12-30] MEDS ORDERED: FENTANYL CITRATE/PF 100MCG/2 ML INJ ONE (18:34)
[2018-12-30] MEDS ORDERED: MIDAZOLAM HCL 2 MG/2 ML VIAL ONE (18:34)
[2018-12-30] MEDS ORDERED: PROPOFOL IV EMULSION 10 MG/ML 50 ML VIAL ONE (18:48)
--- NOTE | 2018-12-30 19:30 | NUR ---
PATIENT RECEIVED. PATIENT IS RESTING IN BED, AAOX3. RESP EVEN AND UNLABORED. PATIENT C/O EPIGASTRIC PAIN, WILL MEDICATE PER MAR. CALL LIGHT WITHIN REACH. INSTRUCT TO CALL FOR ASSISTANCE. BED LOW/LOCKED. CONTINUE TO MONITOR CLOSELY
[2018-12-30] MEDS: ATORVASTATIN 40 MG TAB PO SCH (21:03)
[2018-12-30] MEDS: HYDRALAZINE HCL 20 MG/ML VIAL IV PRN (21:04)
[2018-12-30] MEDS: ONDANSETRON HCL INJ 2MG/ML 2ML 2 MG/ML VIAL IV PRN (21:04)
--- NOTE | 2018-12-30 23:26 | Operative Report ---
DATE OF PROCEDURE: 12/30/2018 SURGEON: Cedrick Banuelos MD INDICATIONS FOR PROCEDURE: Upper abdominal pain, persistent, exacerbated with meals. MEDICATION: The patient was done under MAC. Please see anesthesiologist's note. PROCEDURE IN DETAIL: With the patient in the left lateral decubitus position, the flexible fiberoptic Olympus gastroscope was introduced into the esophagus under direct visualization without any difficulty. There was some patchy erythema noted in distal esophagus. The scope was then advanced with ease into the stomach and a large approximately 1 cm deep ulcer was noted in the incisura. There was no active bleeding. Biopsies were obtained. The mucosa overlying the body and the antrum reveals diffuse erythema. Two ulcers were noted in the antrum with the largest being approximately 5 mm. There were no active bleeding or stigmata of recent hemorrhage. Biopsies were obtained. The pylorus was of normal contour and shape, was intubated with ease and the scope was advanced all the way to the 2nd portion of the duodenum. Biopsies were obtained from the proximal 2nd portion to rule out sprue. The scope was then withdrawn back into the stomach and retroflexed. Mucosa overlying the fundus and the cardia appeared to be within normal limits. The scope was then straightened out and was subsequently withdrawn. The patient tolerated the procedure well. IMPRESSION: 1. Distal esophagitis. 2. Gastritis. 3. Gastric ulcer approximately 1 cm with heaped up margins, incisura, biopsied. 4. Antral ulcers x2 with the largest being 5 mm in size without active bleeding or stigmata of recent hemorrhage. Biopsies obtained. 5. Rule out sprue. PLAN: Followup pathology. Continue current therapy. We will add Carafate 1 g p.o. a.c. t.i.d. at bedtime. Cedrick Banuelos MD [facility] /[id number] cc: Devan Levine MD
[2018-12-31] VITALS: BP 169/80
[2018-12-31] MEDS: MORPHINE SULFATE INJ 4 MG/ML INJ 1ML IV PRN ×3 (00:08→08:29)
[2018-12-31 00:45] VITALS: BP 139/67
[2018-12-31] MEDS: ONDANSETRON HCL INJ 2MG/ML 2ML 2 MG/ML VIAL IV PRN ×2 (04:20→08:29)
[2018-12-31] MEDS: METRONIDAZOLE 500MG/NS 100ML 100 ML IV SCH (05:29)
[2018-12-31 06:26] VITALS: BP 153/72
[2018-12-31] MEDS: SUCRALFATE 1 GM TAB PO SCH (07:30)
[2018-12-31 08:30] VITALS: BP 180/80
[2018-12-31] MEDS: METOPROLOL SUCCINATE 25 MG TAB XL PO SCH (09:00)
[2018-12-31] MEDS: NICOTINE 7 MG PATCH TOP SCH (09:00)
[2018-12-31] MEDS ORDERED: AMLODIPINE BESYLATE 5 MG TAB PO SCH (09:00)
[2018-12-31] MEDS: LISINOPRIL 20 MG TAB PO SCH (09:00)
[2018-12-31 11:34] VITALS: BP 160/74
--- NOTE | 2018-12-31 12:14 | NUR ---
IMM letter delivered and explained to pt. She verbalized understanding. Signed copy placed in chart. Copy to pt.
--- NOTE | 2018-12-31 13:00 | NUR ---
PT DISCHARGED HOME WITH NO PRESCRIPTIONS, PT WAS ASKED TO FOLLOW UP WITH HER PCP, AND EVENT HOST, IV SITE REMOVE NO PAIN , NO SWELLING , NO REDNESS AT SITE.
== END 2018-12-31 13:00 | disposition home or self-care (01) | DRG 384 ==
LOC: ER 10:49 → ERHOLD 15:37 → IMCU 17:19 → OBSVTOIN 12-29 12:59 → MED/SURG 12-29 18:40 → MED/SURG2 12-30 16:35
PROVIDERS: ADMIT Internal Medicine; ATTEND Internal Medicine
PROC: 0DB78ZX Excision of Stomach, Pylorus, Via Natural or Artificial Opening Endoscopic, Diagnostic (ICD-10-PCS; 2018-12-30)
PROC: 0DB68ZX Excision of Stomach, Via Natural or Artificial Opening Endoscopic, Diagnostic (ICD-10-PCS; 2018-12-30)
PROC: 0DB98ZX Excision of Duodenum, Via Natural or Artificial Opening Endoscopic, Diagnostic (ICD-10-PCS; principal; 2018-12-30 14:00)
DX: K25.9 Gastric ulcer, unspecified as acute or chronic, without hemorrhage or perforation (principal); I25.110 Atherosclerotic heart disease of native coronary artery with unstable angina pectoris; I25.82 Chronic total occlusion of coronary artery; I10 Essential (primary) hypertension; Z95.5 Presence of coronary angioplasty implant and graft; E78.5 Hyperlipidemia, unspecified; Z86.73 Personal history of transient ischemic attack (TIA), and cerebral infarction without residual deficits; I71.4 Abdominal aortic aneurysm, without rupture; F17.210 Nicotine dependence, cigarettes, uncomplicated; K52.9 Noninfective gastroenteritis and colitis, unspecified; K20.9 Esophagitis, unspecified; K29.70 Gastritis, unspecified, without bleeding
CPT/HCPCS: 36415; 43239; 71045; 74177; 80053; 80061; 81001; 82150; 82550; 82553; 82607; 82746; 83540; 83690; 84466; 84484; 85025; 85045; 85610; 85730; 88305; 88312; 88342; 93005; 93306; 99284; G0378; J0360; J1956; J2250; J2270; J2405; J7030; J7050; Q9967

== ENCOUNTER 2019-10-18 10:47 | Inpatient (IN) | payer MEDICARE ==
[~2019-10-18] VITALS: Ht 162.6 cm; Wt 62.7 kg
[2019-10-18] VITALS (11 sets, daily range): BP systolic 79–155; BP diastolic 48–92
[2019-10-18] MEDS ORDERED: SODIUM CHLORIDE 0.9% 1000ML 1,000 ML IV STA ×2 (10:53→15:40)
[2019-10-18] MEDS ORDERED: SODIUM CHLORIDE 0.9% 1000ML 1,000 ML IV SCH ×2 (11:00→15:45)
[2019-10-18] MEDS ORDERED: ONDANSETRON HCL INJ 2MG/ML 2ML 2 MG/ML VIAL IV STA (11:33)
[2019-10-18 11:38] LABS: BASOPHILS % 0.1 % (0.0-1.0); HEMATOCRIT 28.5 % (34.2-44.1); HEMOGLOBIN 9.5 g/dL (12.0-16.0); LYMPHOCYTES # (AUTO) 2.4 (1.0-3.2); LYMPHOCYTES % 17.3 % (18.0-39.1); MEAN CORPUSCULAR HEMOGLOBIN 29.9 pg (28-32); MEAN CORPUSCULAR HGB CONC 33.3 g/dL (31-35); MEAN CORPUSCULAR VOLUME 89.6 fL (81-99); MONOCYTES # (AUTO) 1.1 (0.2-0.8); MONOCYTES % 7.7 % (4.4-11.3); NEUTROPHILS # (AUTO) 10.2 (2.1-6.9); NEUTROPHILS % 73.8 % (38.7-80.0); PLATELET COUNT 375 x10e3/uL (140-360); RED BLOOD COUNT 3.18 x10e6/uL (3.6-5.1); RED CELL DISTRIBUTION WIDTH 13.4 % (11.7-14.4)
[2019-10-18] MEDS: PIPER-TAZ 3.375 GM 50 ML IV SCH ×3 (11:40→23:32)
[2019-10-18] MEDS ORDERED: ONDANSETRON HCL INJ 2MG/ML 2ML 2 MG/ML VIAL IV NR (11:45)
[2019-10-18 11:46] LABS: BILIRUBIN,URINE NEGATIVE (NEGATIVE); CLARITY,URINE SL CLOUDY (CLEAR); COLOR,URINE YELLOW (YELLOW); KETONES,URINE NEGATIVE (NEGATIVE); LEUKOCYTE ESTERASE ,URINE NEGATIVE (NEGATIVE); NITRITE,URINE NEGATIVE (NEGATIVE); PROTEIN,URINE DIPSTICK NEGATIVE (NEGATIVE); URINE UROBILINOGEN 0.2 mg/dL (0.2 - 1)
[2019-10-18 11:51] LABS: INR 1.22
[2019-10-18 11:52] LABS: PARTIAL THROMBOPLASTIN TIME 21.7 seconds (23.8-35.5)
--- NOTE | 2019-10-18 11:54 | NUR ---
DR. MACKAY AND Roldan FRANKS RN NOTIFIED AND AWARE OF CRITICAL LAB VALUE: LACTIC ACID 3.1.
[2019-10-18 12:01] LABS: ALBUMIN 3.1 g/dL (3.5-5.0); ALBUMIN/GLOBULIN RATIO 1.3 (0.8-2.0); ANION GAP 18.2 mmol/L (8-16); CALCIUM 9.6 mg/dL (8.4-10.2); CREATININE, SERUM 1.53 mg/dL (0.57-1.11); POTASSIUM 4.2 mmol/L (3.5-5.1)
--- NOTE | 2019-10-18 12:03 | Diagnostic Imaging Report ---
EXAMINATION: CHEST SINGLE (PORTABLE) INDICATION: ^ERMD ORDER ^[id number] ^1120 ^Y COMPARISON: 12/26/2018 FINDINGS: AP view TUBES and LINES: Interval placement of a right IJ central venous catheter with tip overlying the mid SVC. LUNGS: Lungs are well inflated. Dense left lower lobe calcified granuloma is unchanged. There is no evidence of pneumonia or pulmonary edema. PLEURA: No pleural effusion or pneumothorax. HEART AND MEDIASTINUM: The cardiac silhouette is unremarkable. Moderate calcifications of the aortic arch. BONES AND SOFT TISSUES: No acute osseous lesion. Soft tissues are unremarkable. UPPER ABDOMEN: No free air under the diaphragm. IMPRESSION: No acute thoracic abnormality. Right adjacent to venous catheter with tip overlying the mid SVC. No pneumothorax. Signed by: Dr. Samia Childs M.D. on 10/18/2019 12:00 PM
[2019-10-18 12:08] LABS: CREATINE KINASE MB 0.6 ng/mL (0-5.0)
[2019-10-18 12:18] LABS: RBC,URINE 0-5 /HPF (0-5)
[2019-10-18 12:19] LABS: BACTERIA,URINE MANY /HPF; EPITHELIAL CELLS,URINE FEW /LPF
[2019-10-18] MEDS ORDERED: MORPHINE SULFATE INJ 4 MG/ML INJ 1ML IV PRN (12:30)
--- NOTE | 2019-10-18 12:51 | Diagnostic Imaging Report ---
EXAMINATION: Head CT HISTORY: Status post fall, alteration of consciousness. COMPARISON: None available TECHNIQUE: Multidetector axial images were obtained without contrast from the foramen magnum to the vertex . The images were reconstructed using brain and bone algorithms. Thin section brain images were reformatted into coronal and sagittal planes. Image quality: Motion/streaking artifact limits the evaluation of the skull base and posterior cranial fossa. Dose modulation, iterative reconstruction, and/or weight based adjustment of the mA/kV was utilized to reduce the radiation dose to as low as reasonably achievable. FINDINGS: Parenchyma: 1. Focal cortical and subcortical encephalomalacia in the left occipital lobe to include particularly the cuneus extending to the corpus callosum, consistent with chronic infarct along the left TRANSPORT COORDINATOR distribution. 2. Cortical and subcortical encephalomalacia in the right lateral occipital parietal region, consistent with likely subacute to chronic watershed infarct in between the right MCA and TRANSPORT COORDINATOR vascular distributions. 3. Multiple small likely chronic cortical watershed infarct in the right frontoparietal lobes. 4. Tiny chronic watershed inner zone lacunar infarcts in the bilateral frontoparietal centrum semiovale. 5. Chronic lacunar infarct in the left striato-capsular region with compensatory dilatation of the left frontal horn. 6. Scattered and moderate confluent periventricular white matter hypodensities, most extra nonspecific chronic microvascular ischemic changes. 7. No mass or hemorrhage. No CT evidence of acute territorial vascular insult. Extra-axial spaces:No abnormal density. No extra-axial fluid collections Brain volume: Normal for age. Ventricles: No hydrocephalus or displacement. Arteries: No density suggestive of thrombus. Dural sinuses: No abnormal density. Extra-axial spaces: No abnormal density. Foramen magnum: No mass, Chiari malformation, or basilar invagination. Sella: No obvious mass. Paranasal/mastoid sinuses: Imaged portions unremarkable. Skull/Scalp: No lytic or blastic lesions. No fractures. IMPRESSION: 1. No acute posttraumatic intracranial abnormalities, particularly no hemorrhage. 2. Multiple chronic infarcts as detailed above, superimposed acute vascular insult cannot totally be excluded, if clinical concern remains consider a brain MRI without and with contrast for further evaluation. Signed by: Dr. Savanna Leon M.D. on 10/18/2019 12:48 PM
--- NOTE | 2019-10-18 12:57 | NUR ---
DR. MACKAY AND Roldan FRANKS RN NOTIFIED AND AWARE OF CRITICAL LAB VALUE: LACTIC ACID 2.4.
[2019-10-18] MEDS: SODIUM CHLORIDE 0.9% 1000ML 1,000 ML IV SCH ×2 (14:20→22:20)
--- NOTE | 2019-10-18 14:55 | NUR ---
pt has black tarry stool incontinence care performed by eulalio iglesias and eulalio guardado; dr. lugo notified
[2019-10-18] MEDS ORDERED: ACETAMINOPHEN 325 MG TAB PO PRN (15:15)
--- NOTE | 2019-10-18 15:23 | NUR ---
dr. wiggins at pt bedside
[2019-10-18] MEDS ORDERED: MORPHINE SULFATE 2 MG/ML SYR 1ML IV PRN (15:30)
[2019-10-18] MEDS ORDERED: SODIUM CHLORIDE 0.9% 250ML 250 ML IV ONE ×2 (15:45→20:30)
[2019-10-18] MEDS: MORPHINE SULFATE 2 MG/ML SYR 1ML IV PRN ×3 (16:13→23:08)
[2019-10-18] MEDS: PANTOPRAZOLE INJ 40 MG in SODIUM CHLORIDE 0.9% 50ML 50 ML IV SCH ×2 (16:29→20:38)
[2019-10-18] MEDS: OCTREOTIDE ACETATE 500 MCG in SODIUM CHLORIDE 0.9% 250ML 249 ML IV SCH (16:29)
[2019-10-18 16:35] LABS: BASOPHILS % 0.1 % (0.0-1.0); HEMOGLOBIN 7.6 g/dL (12.0-16.0); LYMPHOCYTES # (AUTO) 1.3 (1.0-3.2); LYMPHOCYTES % 13.5 % (18.0-39.1); MEAN CORPUSCULAR HEMOGLOBIN 30.2 pg (28-32); MEAN CORPUSCULAR HGB CONC 33.5 g/dL (31-35); MEAN CORPUSCULAR VOLUME 90.1 fL (81-99); MONOCYTES # (AUTO) 0.6 (0.2-0.8); MONOCYTES % 6.3 % (4.4-11.3); NEUTROPHILS # (AUTO) 7.3 (2.1-6.9); PLATELET COUNT 285 x10e3/uL (140-360); RED BLOOD COUNT 2.52 x10e6/uL (3.6-5.1); RED CELL DISTRIBUTION WIDTH 13.4 % (11.7-14.4)
[2019-10-18 16:41] LABS: HEMATOCRIT 22.7 % (34.2-44.1)
[2019-10-18] MEDS ORDERED: SODIUM CHLORIDE 0.9% 250ML 250 ML IV NR (17:15)
--- NOTE | 2019-10-18 17:28 | Diagnostic Imaging Report ---
EXAM: CT Abdomen and Pelvis WITH contrast INDICATION: ^abodminal pain ^[id number] ^1550 COMPARISON: CT abdomen and pelvis 12/27/2018 TECHNIQUE: Abdomen and pelvis were scanned utilizing a multidetector helical scanner from the lung base to the pubic symphysis after administration of IV contrast. Coronal and sagittal reformations were obtained. Routine protocol was performed. Scan was performed when during portal venous phase. IV CONTRAST: 100 mL of Isovue-370 ORAL CONTRAST: None RADIATION DOSE: Total DLP: 381.7 mGy*cm Estimated effective dose: (DLP x 0.015 x size factor) mSv COMPLICATIONS: None FINDINGS: LINES and TUBES: None. LOWER THORAX: RCA stent. Left lower lobe calcified granuloma. Cardiomegaly. HEPATOBILIARY: Stable few scattered hypodense cystic lesions through the liver with the largest measuring 6 mm in the left lower liver and series 2, image 17. No new hepatic lesions. No biliary ductal dilation. GALLBLADDER: Cholecystectomy. SPLEEN: No splenomegaly. PANCREAS: No focal masses or ductal dilatation. ADRENALS: No adrenal nodules KIDNEYS/URETERS: Unchanged atrophy of the right kidney. The left kidney is normal in size and well perfused. A few scattered hypodense cystic lesion throughout the left kidney and unchanged. No hydronephrosis. No cystic or solid mass lesions. No stones. GI TRACT: When compared to 12/27/2018, there has been mildly progressive diffuse wall thickening of the small and large bowel. No surrounding fluid collections or abscess. No bowel dilatation or obstruction. Appendectomy. PELVIC ORGANS/BLADDER: Unremarkable. LYMPH NODES: No lymphadenopathy. VESSELS: Mild aneurysm of the infrarenal abdominal aorta with associated intraluminal thrombus and circumferential calcified wall. The maximum dimension is 3.2 cm in the mid infrarenal segment on series 2, image 35. This is unchanged. Diffuse atherosclerotic calcifications of the pelvic arteries resulting in severe stenosis of both proximal iliac arteries. PERITONEUM / RETROPERITONEUM: No free air or fluid. BONES: Right hip replacement. Mild wedge compression deformity of L1 vertebral body, progressed when compared to prior exam. SOFT TISSUES: Unremarkable. IMPRESSION: CT findings suggestive of mild pancolitis, which can be infectious or inflammatory, progressed when compared to 12/27/2018. No free fluid, free air, or abscess in the abdomen or pelvis. Signed by: Dr. Samia Childs M.D. on 10/18/2019 5:25 PM
[2019-10-18 17:34] LABS: ABG HCO3 14 mmol/L (23-28); ABG PCO2 30 mmHg (41-51); ABG PH 7.27 (7.31-7.41); ABG PO2 65 mmHg (80-105)
[2019-10-18] MEDS ORDERED: IOPAMIDOL 370 MG/ML 200 ML INFUS..BTL INJ ONE (17:53)
[2019-10-18] MEDS: HYDROCODONE/APAP 5MG-325MG TAB PO PRN (18:00)
[2019-10-18] MEDS ORDERED: SODIUM BICARBONATE 8.4% INJ 50 ML SYR IV NR (18:00)
[2019-10-18] MEDS ORDERED: SODIUM BICARBONATE 8.4% SYRING 50 ML ONE (18:09)
[2019-10-18] MEDS ORDERED: NOREPINEPHRINE INJ 4MG/4ML 8 MG in DEXTROSE 5% 250ML 250 ML IV PRN (19:15)
[2019-10-18] MEDS ORDERED: NOREPINEPHRINE 8 MG/D5W 250 ML 250 ML ONE (19:22)
--- NOTE | 2019-10-18 19:25 | NUR ---
Dr. Bautista notified of hemoglobin drop to 7.6. also notified of CT abdomen and pelvis impression. ordered to give 2 units of blood and insert Dalal. Dr. Hendrickson notified of ABG results and ordered amp of bicarb and 2L oxygen NC. Second type and screen completed. Consent for blood signed by patient and placed in chart. Patient had 1 moderate mucous blood tinged bowel movement. Dr. Banuelos's office paged to inform of drop in hemoglobin and stool. Will continue to monitor pt. 1855- Dr. Bautista notified of hypotension. BP 84/50. ordered Levophed and C diff culture.
[2019-10-18] MEDS ORDERED: PROPOFOL IV EMULSION 10 MG/ML 50 ML VIAL ONE (19:46)
[2019-10-18] MEDS ORDERED: PHYTONADIONE 10MG/ML 20 MG in SODIUM CHLORIDE 0.9% 100 ML 100 ML IV ONE (20:30)
[2019-10-18] MEDS ORDERED: PHYTONADIONE 10 MG/ML AMP IV ONE (20:30)
[2019-10-18] MEDS ORDERED: PANTOPRAZOLE 40 MG 10ML VIAL ONE (20:36)
[2019-10-18] MEDS ORDERED: SODIUM CHLORIDE 0.9% 50ML 50 ML ONE (20:36)
[2019-10-18] MEDS ORDERED: PHYTONADIONE 10MG/ML 1 ML ONE (20:37)
[2019-10-18] MEDS ORDERED: SODIUM CHLORIDE 0.9% 100 ML ONE (20:39)
--- NOTE | 2019-10-18 22:41 | Consultation ---
DATE OF CONSULTATION: REASON FOR CONSULTATION: Abdominal pain, fever, chills, bloody stools. HISTORY OF PRESENT ILLNESS: This patient who is a 69-year-old white female with history of coronary artery disease, history of hypertension, history of myocardial infarction, history of smoking, still active, comes in with abdominal pain, severe, lasted a few days. She had fever and chills yesterday, came to the emergency room and today she had blood in her stools. While she is in the emergency room, she is being admitted. She is complaining of abdominal pain, which is diffuse. PAST MEDICAL HISTORY: Coronary artery disease, hypertension, diabetes mellitus, myocardial infarction, hypercholesteremia. PAST SURGICAL HISTORY: Cholecystectomy. ALLERGIES: NKA. SOCIAL HISTORY: Actively smoking. No drug abuse or alcohol abuse. FAMILY HISTORY: Hypertension. REVIEW OF SYSTEMS: Abdominal pain as mentioned above, otherwise unremarkable. LABORATORY DATA: Sodium 139, potassium 4.2, creatinine 1.53. Lactic acid of 3.1. White count is 13.8, hemoglobin 9.5. MEDICATIONS: Her medication list, she is currently on Zosyn and Zofran. PHYSICAL EXAMINATION: GENERAL: She is alert, oriented, does not seem to be in acute distress. VITAL SIGNS: Stable, currently afebrile. Temperature 97.8, heart rate 101, respirations 26, blood pressure 74/47. HEENT: Normocephalic, not icteric. NECK: Supple. CHEST: Clear bilateral. HEART: S1 and S2. No S3, S4, or murmur. ABDOMEN: Soft, diffuse discomfort. EXTREMITIES: No edema. SKIN: No rash. IMPRESSION: Abdominal pain, bloody stools, sepsis on admission, concern about ischemic colitis. The patient who is a smoker with coronary artery disease, hypertension, myocardial infarction. PLAN: I would recommend to obtain blood cultures and urine cultures. Agree with Zosyn. Obtain CTA of the abdomen. We will recheck CBC. Recheck Chem panel. Agree with IV fluid. The patient is currently in the intensive care unit. Further recommendations to follow. MD CATY Carrizales/JERRY /[id number]
--- NOTE | 2019-10-18 22:56 | History and Physical ---
CHIEF COMPLAINT: Abdominal pain. HISTORY OF PRESENT ILLNESS: This is a 69-year-old female with her at bedside, reportedly came in with complaints of abdominal pain, that began since yesterday afternoon. The patient reports severe epigastric abdominal pain that began suddenly acutely yesterday. She said it subsided and then this morning, she woke up, complained of severe epigastric abdominal pain. She does take Motrin and ibuprofen at home for chronic pain syndrome. She denies taking any meloxicam or any other prescribed NSAIDs at home. The patient denies any black tarry stool. While here, the patient had significant black tarry stool concerning for upper GI bleed. The patient was initiated on octreotide and Protonix drip. A stat CT abdomen and pelvis is pending. The patient denies any chest pain, palpitation, nausea, vomiting. The patient was seen and evaluated at bedside in the emergency room. She is currently doing okay. She is complaining of abdominal pain, which has not subsided and pain medication has been given. She does have a central line. Her blood pressure was low and a normal saline bolus has been ordered. I discussed the plan of care with nursing staff and the patient and her at bedside. REVIEW OF SYSTEMS: Pertinent positives: Epigastric abdominal pain. Pertinent negatives: Denies any chest pain, palpitation, nausea, vomiting, diarrhea, dysuria, hematuria, frequency, urgency, lightheadedness, dizziness, cough, congestion, fever, or any other complaints. The rest of the 14-point review of systems are reviewed with the patient and are negative. ALLERGIES: NO KNOWN DRUG ALLERGIES. HOME MEDICATIONS: Tylenol No. 3, Lipitor, lisinopril, metoprolol. PAST MEDICAL HISTORY: Hypertension, hyperlipidemia. PAST SURGICAL HISTORY: She reports having an EGD and colonoscopy about a year ago at [facility]. She reports that there was a gastric ulcer at that time, but she cannot recall that if it was bleeding or not. FAMILY HISTORY: Hypertension and diabetes. SOCIAL HISTORY: No drugs. No alcohol. Does not smoke. She is . LABORATORY FINDINGS: Show white count 13.8, hemoglobin 9.5, hematocrit 28.5, platelets of 375. Coagulation; PT is 16, INR is 1.2, PTT 21. Chemistry; sodium 139, potassium 4.2, chloride 109, bicarb 16, anion gap of 18, BUN is 85, creatinine is 1.53, glucose 138. Lactic acid on admission 3.1, 2.4, now 1.3. Calcium 9.6. LFTs within normal range. CK 26. Troponin 0.010. Total protein 5.5, albumin 3.1. BNP 70. Urinalysis found to be negative. Stool occult was pending. MICROBIOLOGY: Blood and urine cultures pending. IMAGING STUDIES: Chest x-ray, no acute thoracic abnormality. Right adjacent venous central catheter overlying the mid SVC. No pneumothorax appreciated. CT brain shows no acute posttraumatic intracranial abnormality, particularly no hemorrhage. Multiple chronic infarct above. PHYSICAL EXAMINATION: VITAL SIGNS: Temperature is 97.8; pulse is 81; respiratory rate is 18; blood pressure 110/95, on admission, blood pressure was 74/47; pulse ox 98% on room air. GENERAL: No acute distress. Alert and oriented x3. She looks pale in appearance. HEENT: Head is normocephalic and atraumatic. Eyes; pupils are equal, round, and reactive to light bilaterally. Extraocular movements are intact bilaterally. Throat, no evidence of any erythema or exudates in the posterior pharynx. Has poor dentition. NECK: Supple. Good range of motion. PULMONARY: Clear to auscultation bilaterally. No wheezing, rales, rhonchi, or crackles appreciated. CARDIOVASCULAR: Positive S1, S2. No murmurs, rubs, or gallops appreciated. ABDOMEN: Soft, but very tender to palpation in the epigastric region. Bowel sounds were present. MUSCULOSKELETAL: Strength is 5/5 throughout. No evidence of any muscle deficits on examination. No weakness appreciated. NEUROLOGICAL: Cranial nerves 2 through 12 grossly intact. No evidence of any neurological deficits on exam. SKIN: Intact. Warm to touch. Good cap refill. PSYCHIATRIC: Normal affect and mood. EXTREMITIES: No edema. Good range of motion throughout. IMPRESSION: 1. Hypovolemic hypotension, likely secondary to gastrointestinal bleed. 2. Rule out sepsis. 3. Acute kidney injury with underlying elevated BUN. 4. Anemia. 5. Hypotension. PLAN: At this time, the patient was found to have black tarry stool on examination by the nursing staff. BUN is elevated, indicative of some upper GI bleed. Type and screen and transfuse 2 units of packed RBCs. She was given normal saline boluses already, but her blood pressure is low. We will go ahead and give her normal saline bolus 1 L now. Put on octreotide and Protonix drip. GI consulted. A stat CT abdomen and pelvis with IV contrast ordered. Keep the patient n.p.o. Pain control. Continue with aggressive IV fluid hydration. Hold anticoagulation due to concerns of GI bleed. I discussed the plan of care with nursing staff, ER physician including the patient and the patient's at bedside. Otherwise, we will continue the same plan of care as discussed and she will be transferred to the ICU. GI, Pulmonary Critical Care, and ID have been consulted. Central line has been placed. MD CATHIE Chan/JERRY /[id number]
[2019-10-18] MEDS: ONDANSETRON HCL INJ 2MG/ML 2ML 2 MG/ML VIAL IV PRN (23:08)
--- NOTE | 2019-10-18 23:11 | Consultation ---
DATE OF CONSULTATION: Pulmonary Consultation The patient of Dr Bautista, Dr. Marrero, Dr. Cedrick Banuelos. HISTORY OF PRESENT ILLNESS: Charming but unfortunate 69-year-old woman, moaning, admitted this morning from home with a weakness. Fell last week, hurt her back. Today, she had black stools on arrival in the emergency room. She has a history of carotid surgery, history of coronary stents, history of multiple old infarcts most recent 07/24 after repair of a right hip fracture. SOCIAL HISTORY: She was born in [place]. FAMILY HISTORY: Noncontributory. PHYSICAL EXAMINATION: GENERAL: She is a well-developed white female, edentulous, moaning in Trendelenburg, appears sallow. VITAL SIGNS: Temperature 97.8, pulse 88, blood pressure 114/70, in Trendelenburg. LUNGS: Diminished breath sounds. HEART: Regular rhythm. ABDOMEN: Nontender. EXTREMITIES: Nonedematous. She has a history of peptic ulcer disease. Her creatinine was 1.53, INR 1.22, hemoglobin 9.5. There is an apparent acute GI bleed. Two units of blood have been requested. She is on Protonix drip. Continue to monitor carefully in ICU. CT of the abdomen and pelvis is still pending. Thank you for this kind referral. MD JUAN M Maya/JERRY /[id number]
[2019-10-18 23:56] LABS: CREATINE KINASE MB 1.3 ng/mL (0-5.0)
[2019-10-19] VITALS (29 sets, daily range): BP systolic 112–162; BP diastolic 54–91
[2019-10-19] MEDS ORDERED: SODIUM CHLORIDE 0.9% 250ML 250 ML ONE ×3 (00:23→03:18)
[2019-10-19] MEDS ORDERED: OCTREOTIDE ACETATE 2 ML ONE (03:13)
[2019-10-19] MEDS ORDERED: PANTOPRAZOLE 40 MG 10ML VIAL ONE ×2 (03:20→08:04)
[2019-10-19] MEDS ORDERED: SODIUM CHLORIDE 0.9% 50ML 50 ML ONE (03:21)
[2019-10-19] MEDS: OCTREOTIDE ACETATE 500 MCG in SODIUM CHLORIDE 0.9% 250ML 249 ML IV SCH ×2 (03:23→21:24)
[2019-10-19] MEDS: PANTOPRAZOLE INJ 40 MG in SODIUM CHLORIDE 0.9% 50ML 50 ML IV SCH ×2 (03:23→08:07)
[2019-10-19] MEDS: MORPHINE SULFATE 2 MG/ML SYR 1ML IV PRN ×2 (04:50→07:50)
[2019-10-19] MEDS: PIPER-TAZ 3.375 GM 50 ML IV SCH ×3 (06:23→18:50)
[2019-10-19 07:47] LABS: BASOPHILS % 0.2 % (0.0-1.0); EOSINOPHILS % 0.4 % (0.0-6.0); HEMATOCRIT 28.1 % (34.2-44.1); HEMOGLOBIN 9.4 g/dL (12.0-16.0); LYMPHOCYTES # (AUTO) 0.8 (1.0-3.2); LYMPHOCYTES % 16.7 % (18.0-39.1); MEAN CORPUSCULAR HEMOGLOBIN 30.5 pg (28-32); MEAN CORPUSCULAR HGB CONC 33.5 g/dL (31-35); MEAN CORPUSCULAR VOLUME 91.2 fL (81-99); MONOCYTES # (AUTO) 0.5 (0.2-0.8); MONOCYTES % 9.6 % (4.4-11.3); NEUTROPHILS # (AUTO) 3.6 (2.1-6.9); NEUTROPHILS % 72.3 % (38.7-80.0); PLATELET COUNT 186 x10e3/uL (140-360); RED BLOOD COUNT 3.08 x10e6/uL (3.6-5.1); RED CELL DISTRIBUTION WIDTH 13.7 % (11.7-14.4)
[2019-10-19] MEDS ORDERED: PANTOPRAZOL 40MG/SOD CHL 0.9% 50 ML IV ONE (08:05)
[2019-10-19] MEDS: SODIUM CHLORIDE 0.9% 1000ML 1,000 ML IV SCH ×2 (08:07→08:12)
[2019-10-19 08:09] LABS: CREATINE KINASE MB 1.9 ng/mL (0-5.0)
[2019-10-19 08:24] LABS: ANION GAP 12.5 mmol/L (8-16); CALCIUM 8.1 mg/dL (8.4-10.2); CREATININE, SERUM 1.16 mg/dL (0.57-1.11); POTASSIUM 3.5 mmol/L (3.5-5.1)
[2019-10-19] MEDS ORDERED: LEVOFLOXACIN 750MG/D5W 150ML 150 ML IV SCH (09:00)
[2019-10-19] MEDS: METOPROLOL SUCCINATE 25 MG TAB XL PO SCH (09:00)
[2019-10-19] MEDS: NICOTINE 14 MG/EA PATCH TOP SCH (09:20)
[2019-10-19] MEDS: HYDROMORPHONE 1MG/1ML INJ IV PRN ×4 (10:49→22:23)
--- NOTE | 2019-10-19 12:35 | Progress Note ---
DATE: 10/19/2019 Medicine Progress Note SUBJECTIVE: The patient still has abdominal pain, but seems to have improved. No more evidence of black tarry stool. No overnight events. She did have some low blood pressure last night requiring Levophed drip. Now, her blood pressure is much improved at 137 systolically. PHYSICAL EXAMINATION: VITAL SIGNS: Temperature is 99.3, pulse 108, respiratory rate is 22, blood pressure 137/80, and pulse ox 99% on room air. GENERAL: Not in acute distress. Alert and oriented x3. Cooperative on examination. HEENT: Head; normocephalic, atraumatic. Eyes; pupils are equal, round, and reactive to light bilaterally. Extraocular movements intact bilaterally. Throat; no evidence of erythema or exudates in the posterior pharynx. Has poor dentition. NECK: Supple. Good range of motion. PULMONARY: Clear to auscultation bilaterally. No wheezing, no rales, no rhonchi, no crackles appreciated. CARDIOVASCULAR: Positive S1 and S2. No murmurs, rubs, or gallops appreciated. ABDOMEN: Soft, nondistended, and nontender to palpation. Bowel sounds present. MUSCULOSKELETAL: Strength is 5/5 throughout. No evidence of any muscle deficits on examination. No weakness appreciated. NEUROLOGIC: Cranial nerves II through XII grossly intact. No evidence of any neurological deficits on exam. SKIN: Intact. Warm to touch. Good cap refill. PSYCHIATRIC: Normal affect and mood. EXTREMITIES: No edema. Good range of motion throughout. LABORATORY FINDINGS: Show white count was 5, hemoglobin 9.4, hematocrit is 28, and platelets of 186. Coagulation; PT 16, INR 1.2, and PTT 21.7. Chemistry; sodium 145, potassium 3.5, chloride 119, bicarb 17, BUN is 15, creatinine is 1.1, glucose is 142, and calcium is 8.1. Troponins were negative. Urinalysis negative. Stool occult blood positive. C. difficile is pending. MICROBIOLOGY: Urine culture, gram negative rods. Blood cultures, no growth to date. IMAGING STUDIES: CT abdomen and pelvis shows mild pancolitis. No free fluid, free air, or abscess in the abdomen or pelvis. IMPRESSION: 1. Sepsis with hypotension, likely secondary to urinary tract infection as well as pancolitis. 2. Pancolitis. 3. Concerns for upper gastrointestinal bleed with underlying anemia, status post blood transfusion. 4. Acute kidney injury with elevated BUN, improving. 5. Back pain. PLAN: At this time, urine cultures are positive, pending final results. Blood cultures, no growth to date. Continue with IV antibiotics. ID is following. Labs reviewed, seems to have been improved. Hemoglobin stable. Continue with q.6 hours hemoglobin levels. GI has been consulted and she is scheduled to have an EGD tomorrow. Continue with octreotide and Protonix drip. CT abdomen and pelvis noted. Continue with n.p.o. with just minimal ice chips. I did change the morphine to Dilaudid 0.5 mg IV q.4 hours p.r.n. for pain. Hold anticoagulation. I initiated nutrition with IV TPN, which has been placed in the chart. Discussed plan of care with the patient, the patient's family, and nursing staff and they verbalized understanding. Consultants; GI, Pulmonary Critical Care, and ID. Spent more than 40 minutes of critical care time on this case. MD CATHIE Chan/JERRY /[id number]
[2019-10-19 13:00] LABS: HEMATOCRIT 26.1 % (34.2-44.1); HEMOGLOBIN 8.7 g/dL (12.0-16.0)
[2019-10-19] MEDS: DEXTROSE 5%/0.9% SOD CHL 1,000 ML IV SCH ×2 (13:00→19:15)
[2019-10-19 13:31] LABS: CREATINE KINASE MB 2.2 ng/mL (0-5.0)
[2019-10-19] MEDS: PANTOPRAZOL 40MG/SOD CHL 0.9% 50 ML IV SCH ×2 (15:51→17:29)
[2019-10-19] MEDS: LIDOCAINE 4% PATCH TP SCH (15:51)
--- NOTE | 2019-10-19 18:51 | Diagnostic Imaging Report ---
Exam: Right hip radiographs-2 views; AP radiograph of the pelvis-1 view History: Fall. Comparison: CT Abdomen/Pelvis 10/18/2019. Findings/Impression: Diffuse osteopenia and portable technique, which limited evaluation. In addition, there is extensive bowel gas which obscures visualization of the sacrum and bilateral iliac bones. There is no evidence of acute displaced fracture or malalignment. Status post ORIF of the right proximal femur with lateral plate and screw construct and intact hardware. There is a remote fracture deformity of the right proximal femoral diaphysis. Moderate left and mild right hip degenerative changes. Signed by: Dr. Cali Casillas MD on 10/19/2019 6:48 PM
[2019-10-19 18:55] LABS: HEMATOCRIT 25.9 % (34.2-44.1); HEMOGLOBIN 8.9 g/dL (12.0-16.0)
--- NOTE | 2019-10-19 19:00 | NUR ---
nursing report handoff to night KLARISSA buchanan
[2019-10-19] MEDS: CENTRAL TPN FORMULA 1 BAG IV SCH (20:24)
[2019-10-20] VITALS (28 sets, daily range): BP systolic 99–174; BP diastolic 57–100
[2019-10-20] MEDS: DEXTROSE 5%/0.9% SOD CHL 1,000 ML IV SCH (00:02)
[2019-10-20] MEDS: PIPER-TAZ 3.375 GM 50 ML IV SCH ×3 (00:02→12:17)
[2019-10-20] MEDS: PANTOPRAZOL 40MG/SOD CHL 0.9% 50 ML IV SCH ×5 (00:30→22:55)
[2019-10-20 00:34] LABS: HEMATOCRIT 24.7 % (34.2-44.1); HEMOGLOBIN 8.2 g/dL (12.0-16.0)
[2019-10-20] MEDS: HYDROMORPHONE 1MG/1ML INJ IV PRN ×5 (03:10→19:57)
[2019-10-20] MEDS: ONDANSETRON HCL INJ 2MG/ML 2ML 2 MG/ML VIAL IV PRN ×2 (04:24→09:51)
[2019-10-20 05:04] LABS: BASOPHILS % 0.2 % (0.0-1.0); EOSINOPHILS # (AUTO) 0.2 (0.0-0.4); EOSINOPHILS % 3.4 % (0.0-6.0); HEMATOCRIT 27.2 % (34.2-44.1); LYMPHOCYTES # (AUTO) 1.4 (1.0-3.2); LYMPHOCYTES % 24.1 % (18.0-39.1); MEAN CORPUSCULAR HEMOGLOBIN 30.2 pg (28-32); MEAN CORPUSCULAR HGB CONC 33.1 g/dL (31-35); MEAN CORPUSCULAR VOLUME 91.3 fL (81-99); MONOCYTES # (AUTO) 0.4 (0.2-0.8); MONOCYTES % 7.1 % (4.4-11.3); NEUTROPHILS # (AUTO) 3.8 (2.1-6.9); NEUTROPHILS % 63.9 % (38.7-80.0); PLATELET COUNT 204 x10e3/uL (140-360); RED BLOOD COUNT 2.98 x10e6/uL (3.6-5.1); RED CELL DISTRIBUTION WIDTH 13.7 % (11.7-14.4)
[2019-10-20 05:24] LABS: ALBUMIN 2.8 g/dL (3.5-5.0); ALBUMIN/GLOBULIN RATIO 1.1 (0.8-2.0); ANION GAP 12.1 mmol/L (8-16); CALCIUM 8.5 mg/dL (8.4-10.2); CREATININE, SERUM 1.01 mg/dL (0.57-1.11); POTASSIUM 3.1 mmol/L (3.5-5.1)
[2019-10-20] MEDS: METOPROLOL SUCCINATE 25 MG TAB XL PO SCH ×2 (09:00→09:44)
[2019-10-20] MEDS: NICOTINE 14 MG/EA PATCH TOP SCH (09:02)
[2019-10-20] MEDS: LIDOCAINE 4% PATCH TP SCH (09:02)
[2019-10-20] MEDS ORDERED: POTASSIUM CHLORIDE 20MEQ/100ML 100 ML IV PRN (09:30)
[2019-10-20] MEDS ORDERED: POTASSIUM CHLORIDE 20MEQ/100ML 200 ML IV ONE (12:00)
--- NOTE | 2019-10-20 12:29 | Progress Note ---
DATE: SUBJECTIVE: The patient, who is currently in the intensive care unit. She was transferred here. She still have some abdominal pain. at the bedside. REVIEW OF SYSTEMS: Abdominal pain. PHYSICAL EXAMINATION: GENERAL: She is alert. VITAL SIGNS: Stable. HEENT: She is not icteric. CHEST: Few crackles. COR: S1 and S2. No S3, S4, or murmur. ABDOMEN: Soft and distended. EXTREMITIES: No edema. SKIN: No rash. LABORATORY DATA: Reviewed. Blood cultures are negative. Urine culture showing Klebsiella pneumoniae. MEDICATION LIST: Reviewed. She is on Dilaudid, Toprol, Nicoderm, and Zosyn. IMPRESSION: Colitis. I am concerned about ischemic colitis. We will order CT angiogram. Continue with antibiotic as ordered. Discussed with the family. Discussed with the medical team. Continue antibiotic for the time being. MD CATY Carrizales/JERRY /[id number]
[2019-10-20] MEDS: CEFTRIAXONE SOD 1 GM/NS 50 ML 50 ML IV SCH (13:29)
[2019-10-20] MEDS: OCTREOTIDE ACETATE 500 MCG in SODIUM CHLORIDE 0.9% 250ML 249 ML IV SCH (15:27)
[2019-10-20] MEDS: METRONIDAZOLE 500MG/NS 100ML 100 ML IV SCH ×2 (15:28→21:37)
--- NOTE | 2019-10-20 15:29 | Progress Note ---
DATE: 10/20/2019 SUBJECTIVE: The patient is I think scheduled for an EGD later today according to the nurse. CT of the abdomen and pelvis has been ordered as well which is still pending. She is still complaining of pain in which I increased the Dilaudid to 1 mg q.4 hours p.r.n. OBJECTIVE: VITAL SIGNS: Temperature 98.5, pulse 106, respiratory rate is 18, blood pressure is 170/97, and pulse ox 100% on 2 L nasal cannula. GENERAL: Not in acute distress. Alert and oriented x3. Cooperative on examination. HEENT: Head; normocephalic, atraumatic. Eyes; pupils are equal, round, and reactive to light bilaterally. Extraocular movements intact bilaterally. Throat; no evidence of erythema or exudates in the posterior pharynx. Has poor dentition. NECK: Supple. Good range of motion. PULMONARY: Clear to auscultation bilaterally. No wheezing, no rales, no rhonchi, no crackles appreciated. CARDIOVASCULAR: Positive S1 and S2. No murmurs, rubs, or gallops appreciated. ABDOMEN: Soft, nondistended, and nontender to palpation. Bowel sounds were present. MUSCULOSKELETAL: Strength is 5/5 throughout. No evidence of any muscle deficits on examination. No weakness appreciated. NEUROLOGIC: Cranial nerves II through XII grossly intact. No evidence of any neurological deficits on exam. SKIN: Intact. Warm to touch. Good cap refill. PSYCHIATRIC: Normal affect and mood. EXTREMITIES: No edema. Good range of motion throughout. LABORATORY FINDINGS: White count is 5.9, hemoglobin 9, hematocrit 27, and platelets of 204. Chemistries reviewed sodium 144, potassium 3.1, chloride 114, bicarb 21, anion gap of 12, BUN 23, and creatinine is 1. Urine cultures, Klebsiella. Blood cultures, no growth to date. IMAGING STUDIES: Hip x-ray shows status post ORIF on the right proximal femur with lateral plate screw in construction with intact hardware. There is remote fracture deformity of the right proximal more diaphysis. Moderate left and mild right hip degenerative changes. IMPRESSION: 1. Sepsis with hypotension, likely secondary to urinary tract infection with pancolitis. 2. Urinary tract infection. 3. Pancolitis. 4. Concern for upper GI bleed with underlying anemia status post blood transfusion. 5. Acute kidney injury, improved. 6. Chronic back pain. PLAN: At this time, she continues to complain of abdominal pain in which CTA of the abdomen and pelvis has been ordered. No more evidence of any black tarry stool. Hemoglobin maintained stable. She is scheduled for EGD later today by GI. Continue with IV antibiotics. GI and ID are following very closely. I did start the patient on IV Rocephin for underlying urinary tract infection. Continue with Protonix drip and octreotide. Continue with n.p.o. except for minimal ice chips. Dilaudid was increased to 1 mg q.4 hours p.r.n. No anticoagulation at this time. Continue with IV TPN. I discussed this plan of care with nursing staff in which she verbalized understanding. The consultants; GI, Pulmonary Critical Care, and ID. I spent more than 35 minutes of critical care time on this case. MD CATHIE Chan/JERRY /[id number]
--- NOTE | 2019-10-20 15:58 | Diagnostic Imaging Report ---
EXAM: CTA Abdomen and Pelvis WITHOUT and WITH intravenous contrast INDICATION: Ischemic colitis COMPARISON: CT abdomen and pelvis of 10/18/2019 TECHNIQUE: Abdomen and pelvis were scanned utilizing a multidetector helical scanner from the lung base to the pubic symphysis after administration of IV contrast. Coronal and sagittal reformations were obtained. CTA protocol was performed. Scan was performed prior to contrast administration, during arterial phase, and portal venous delayed phase. 3D reconstruction was performed and viewed on dedicated workstation and used in interpretation. IV CONTRAST: 100mL of Isovue 370 ORAL CONTRAST: Water RADIATION DOSE: Total DLP: 1249.6 mGy*cm Dose modulation, iterative reconstruction, and/or weight based adjustment of the mA/kV was utilized to reduce the radiation dose to as low as reasonably achievable. FINDINGS: LOWER THORAX: Trace left pleural effusion. No lung base consolidation. Left lower lobe calcified granuloma. Mild bibasilar subsegmental atelectasis. Atherosclerotic calcifications of the coronary arteries. HEPATOBILIARY: Right and left hepatic hypodensities, likely representing cysts. Mild intrahepatic biliary ductal dilation, unchanged from 10/18/2019 but new compared to the CT of 05/06/2018 prior to cholecystectomy. Common bile duct dilated to 10 mm, unchanged SPLEEN: Calcified granulomas throughout the spleen. PANCREAS: No focal masses or ductal dilatation. ADRENALS: No adrenal nodules. KIDNEYS/URETERS: No hydronephrosis or renal calculi. There is new perinephric stranding associated with the left kidney. The right kidney appears asymmetrically smaller in size compared to the left and demonstrates delayed contrast opacification. PELVIC ORGANS/BLADDER: Dalal catheter in the bladder. PERITONEUM / RETROPERITONEUM: Small amount of free fluid in the pelvis. LYMPH NODES: No lymphadenopathy. VESSELS: Unchanged infrarenal abdominal aortic aneurysm measuring up to 3.0 cm with mural thrombus. Diffuse atherosclerotic arterial calcifications including of the coronary arteries. The celiac artery, SMA, and ARIANA and major branches are patent. There is no contrast-related opacification of the right renal artery. GI TRACT: The previously seen diffuse colonic wall thickening has improved. There is now no abnormal bowel wall thickening or bowel obstruction. BONES AND SOFT TISSUES: Mild diffuse osteopenia. Age indeterminate compression fracture of the superior endplate of L1. Grade 1 retrolisthesis at L1-2 and L2-3.. No suspicious lytic or blastic lesions. Postoperative findings of ORIF of the right proximal femur. IMPRESSION: Interval improvement in previously seen colonic wall thickening. No bowel obstruction. Extremity associated with the left kidney, which can be seen with upper urinary tract infection. Asymmetrically decreased size of the right kidney and nonopacification of the right renal artery. Unchanged infrarenal abdominal aortic aneurysm measuring up to 3 cm. Follow-up CTA in 3 years is recommended to assess for stability. Signed by: Davey Clarke MD on 10/20/2019 3:55 PM
[2019-10-20] MEDS: LISINOPRIL 10 MG TAB PO SCH (16:19)
[2019-10-20] MEDS: HYDRALAZINE HCL 20 MG/ML VIAL IV PRN (16:32)
--- NOTE | 2019-10-20 17:00 | NUR ---
Out to endoscopy
[2019-10-20] MEDS ORDERED: EPINEPHRINE HCL 1:1000 1ML 1 MG/ML AMP ONE (17:26)
--- NOTE | 2019-10-20 17:30 | NUR ---
Returned from endoscopy.
--- NOTE | 2019-10-20 17:46 | Progress Note ---
DATE: SUBJECTIVE: Ms. Roque remains in intensive care unit, remains complaining of abdominal pain. Her urine showed Klebsiella pneumonia. Her blood cultures are negative. Klebsiella pneumoniae were pansensitive except resistant to ampicillin and nitrofurantoin. LABORATORY DATA: Her white count 5.9, hemoglobin of 9. Her sodium 144, potassium 3.1. CTA is still pending. REVIEW OF SYSTEMS: GI: Abdominal pain. HEENT: Negative. PULMONARY: Negative. SKIN: There is no rash. PHYSICAL EXAMINATION: GENERAL: She is currently alert, oriented, does not seem to be in acute distress, and stomach pain. VITAL SIGNS: Stable, currently afebrile. HEENT: Not icteric. NECK: Supple. CHEST: Clear. COR: S1 and S2. No S3, S4, or murmur. ABDOMEN: Soft, diffuse discomfort. IMPRESSION: Abdominal pain, colitis, concerned about ischemic colitis. We will await CTA. Continue with antibiotic for urinary tract infection Klebsiella. She is currently on Rocephin, Zosyn, hydrocodone. I would recommend to discontinue Zosyn, add Flagyl. Await CTA. Recheck CBC. Recheck Chem panel. Discussed with the medical team. Further recommendations to follow. MD CATY Carrizales/JERRY /[id number]
--- NOTE | 2019-10-20 18:31 | NUR ---
Nutrition Intervention Note RD Recommendation(s) for Physician: -Continue current TPN order as appropriate -Recommend advancing diet when medically appropriate Plan of Care: RD following, monitoring for tolerance and adequacy Nutrition reason for involvement: Diet order parenteral nutrition RD Assessment (10/20/19) Pt is a 69 year old female admitted with septic shock, UTI, and renal injury. It is also noted that pt has colitis; therefore, pt is NPO and MD had ordered TPN. Pt stated she typically ate 50% of meals prior to admission. No wt loss reported and pt mentioned she usually weighs 125 lbs. However, pt currently has a wt of 138 lbs in chart. No N/V or chewing/swallowing issues at this time. Will continue to monitor. Principal Problems/Diagnoses: septic shock, UTI, and renal injury PMH: Hypertension, hyperlipidemia. I/O: 3380/5050 GI: last recorded BM 10/20 x 2 Skin: intact Labs: (10/20/19) K 3.1, Glu 148 Meds: piperacillin/tazobactam, KCl, zofran, metroprolol, pantoprazole, norepinephrine, lisinopril, NaCl Ht: 64 inches Wt: 138 lbs BMI: 23.7 kg/m2 IBW: 120 lbs Malnutrition Evaluation (10/20/19) The patient does not meet criteria for a specified degree of malnutrition at this time. Will re-evaluate at follow-up as appropriate. Energy intake: Pt reports she typically ate 50% of her meals prior to admission Weight loss: No weight loss reported Fat loss: no loss identified Muscle loss: no loss identified Supporting Evidence: Fluid accumulation: no accumulation identified per MD note Functional Status: unable to evaluate Nutrition Prescription (Diet Order): TPN (Dextrose 30%, amino acid 10%) @ 80 mL/hr and 25 gm/day lipids 3 days/week (provides 1459 kcal, 96 g protein) Estimated Nutritional Needs: 1169-2704 calories/day (25-35 kcal/kg CBW) 63-94 g protein/day (1-1.5 g pro/kg CBW) Diet Adequacy: TPN is meeting > 75% of calorie and protein needs Tolerance: Tolerating TPN Diet Education Needs Assessment: Diet education not indicated at this time Nutrition Care Level: moderate Nutrition Diagnosis: Altered GI function related to colitis as evidenced by pt is on TPN. Goal: Patient will meet 75-100% of estimated needs by follow up Progress: N/A Interventions: -TPN- Composition, Rate, Route, Collaboration with other providers Monitoring/Evaluation: -Total energy intake, Total protein intake, Formula/Solution, IVF, Prescription medication, Weight change Signed: Lexii Luong RD, LD
--- NOTE | 2019-10-20 19:00 | NUR ---
Report received. Assumed care. Assessment done. See interventions.
[2019-10-20] MEDS ORDERED: FENTANYL CITRATE/PF 100MCG/2 ML INJ ONE (19:06)
[2019-10-20] MEDS ORDERED: KETAMINE HCL INJ 50 MG/ML 10 ML VIAL ONE (19:06)
[2019-10-20] MEDS ORDERED: MIDAZOLAM HCL 2 MG/2 ML VIAL ONE (19:06)
--- NOTE | 2019-10-20 19:20 | NUR ---
Blood drawn for HH.
[2019-10-20 19:24] LABS: HEMATOCRIT 26.2 % (34.2-44.1); HEMOGLOBIN 8.9 g/dL (12.0-16.0)
--- NOTE | 2019-10-20 19:57 | NUR ---
Medicated for c/o pain.
[2019-10-20] MEDS: CENTRAL TPN FORMULA 1 BAG IV SCH (20:30)
[2019-10-20] MEDS: METOCLOPRAMIDE HCL 10 MG/2ML VIAL IV SCH (23:55)
[2019-10-21] VITALS (10 sets, daily range): BP systolic 144–181; BP diastolic 67–94
[2019-10-21] MEDS: HYDROMORPHONE 1MG/1ML INJ IV PRN ×2 (00:03→05:27)
--- NOTE | 2019-10-21 00:03 | NUR ---
Medicated for c/o pain.
--- NOTE | 2019-10-21 00:20 | NUR ---
Report received and transferred to Med/surg 2 room 205. Patient stable and no issues or concerns. Dalal to bedside drainage, draining clear yellow urine. Oriented to room and environment. Call light given and oriented to how to use. Bed alarm on and will continue to monitor.
--- NOTE | 2019-10-21 00:30 | NUR ---
Call to Dr. Bautista re: transfer. OK to transfer to [facility] tele.
[2019-10-21] MEDS: PANTOPRAZOL 40MG/SOD CHL 0.9% 50 ML IV SCH ×5 (01:30→20:59)
[2019-10-21] MEDS: ONDANSETRON HCL INJ 2MG/ML 2ML 2 MG/ML VIAL IV PRN (05:35)
[2019-10-21 05:40] LABS: BASOPHILS % 0.3 % (0.0-1.0); EOSINOPHILS # (AUTO) 0.3 (0.0-0.4); EOSINOPHILS % 3.7 % (0.0-6.0); HEMATOCRIT 29.9 % (34.2-44.1); HEMOGLOBIN 9.9 g/dL (12.0-16.0); LYMPHOCYTES # (AUTO) 1.8 (1.0-3.2); MEAN CORPUSCULAR HEMOGLOBIN 30.2 pg (28-32); MEAN CORPUSCULAR HGB CONC 33.1 g/dL (31-35); MEAN CORPUSCULAR VOLUME 91.2 fL (81-99); MONOCYTES # (AUTO) 0.4 (0.2-0.8); MONOCYTES % 4.9 % (4.4-11.3); NEUTROPHILS # (AUTO) 5.9 (2.1-6.9); NEUTROPHILS % 68.4 % (38.7-80.0); PLATELET COUNT 231 x10e3/uL (140-360); RED BLOOD COUNT 3.28 x10e6/uL (3.6-5.1); RED CELL DISTRIBUTION WIDTH 13.8 % (11.7-14.4)
[2019-10-21 05:56] LABS: ANION GAP 13.8 mmol/L (8-16); CALCIUM 8.7 mg/dL (8.4-10.2); POTASSIUM 3.8 mmol/L (3.5-5.1)
[2019-10-21] MEDS: METRONIDAZOLE 500MG/NS 100ML 100 ML IV SCH ×3 (05:57→21:00)
[2019-10-21] MEDS: METOCLOPRAMIDE HCL 10 MG/2ML VIAL IV SCH ×3 (06:03→16:40)
[2019-10-21] MEDS: HYDRALAZINE HCL 20 MG/ML VIAL IV PRN (06:04)
--- NOTE | 2019-10-21 06:10 | Operative Report ---
DATE OF PROCEDURE: 10/20/2019 SURGEON: Cedrick Banuelos MD PROCEDURE: EGD with injection therapy and fulguration of a gastric ulcer. INDICATIONS FOR PROCEDURE: Upper GI bleed. MEDICATIONS: The patient was done under MAC, please see anesthesiologist's note. PROCEDURE IN DETAIL: With the patient in left lateral decubitus position, flexible fiberoptic Olympus gastroscope was introduced into the esophagus under direct visualization without any difficulty. There was some patchy erythema noted in distal esophagus. The scope was then advanced with ease into the stomach traversing a moderate-sized hiatal hernia. Several gastric ulcers were noted in the antrum as well as one in the incisura. The largest approximately 1 cm in size with some bright red blood in the crater. The intervening mucosa in the antrum and the body revealed some diffuse erythema. Pylorus was of normal contour and shape was intubated with ease and the scope was advanced all the way to the second portion of the duodenum. The scope was then withdrawn slowly, mucosa overlying the proximal second portion and the duodenal bulb appeared to be within normal limits. The scope was then withdrawn back into the stomach and retroflex and previously described hiatal hernia was also noted in the retroflexed position. The scope was then straightened out. The previously described ulcer was then injected with 1/10,000 epi and thermocoagulation with gold probe was carried out with excellent hemostasis. The scope was subsequently withdrawn, patient tolerated the procedure well. IMPRESSION: 1. Distal esophagitis. 2. Moderate-sized hiatal hernia. 3. Gastritis. 4. Gastric ulcers, multiple with the largest approximately 1 cm in size in the antrum with bright red blood in the crater. Injection of the 1/10,000 epi thermocoagulation with gold probe was carried out with excellent hemostasis. The patient tolerated the procedure well. PLAN: Follow H and H. Add Carafate. Initiate Reglan 10 mg IV q.6 hours. Start clear liquid diet. Cedrick Banuelos MD [facility] [place], [place]/MODL /[id number] cc: Arnaldo Bautista MD
--- NOTE | 2019-10-21 06:30 | NUR ---
Left message for daughter Amira Woods regarding room change from ICU to medsurg 2 room 205.
--- NOTE | 2019-10-21 07:11 | NUR ---
pt alert resp even and unlabored pt able to make needs known, no c/o pain no distress noted, will cont to monitor, call light in reach.
[2019-10-21] MEDS: HYDROCODONE/APAP 5MG-325MG TAB PO PRN (07:31)
[2019-10-21] MEDS: NICOTINE 14 MG/EA PATCH TOP SCH (09:41)
[2019-10-21] MEDS: LIDOCAINE 4% PATCH TP SCH (09:41)
[2019-10-21] MEDS: SUCRALFATE 1 GM TAB PO SCH ×4 (09:50→21:00)
[2019-10-21] MEDS: METOPROLOL SUCCINATE 25 MG TAB XL PO SCH (09:51)
[2019-10-21] MEDS: LISINOPRIL 10 MG TAB PO SCH (09:51)
[2019-10-21] MEDS: OCTREOTIDE ACETATE 500 MCG in SODIUM CHLORIDE 0.9% 250ML 249 ML IV SCH (09:52)
[2019-10-21] MEDS ORDERED: LISINOPRIL 20 MG TAB PO NR (12:00)
[2019-10-21] MEDS: CEFTRIAXONE SOD 1 GM/NS 50 ML 50 ML IV SCH (13:29)
[2019-10-21] MEDS: HYDROCODONE/APAP 10MG-325MG TAB PO PRN ×3 (14:57→22:16)
--- NOTE | 2019-10-21 16:13 | Progress Note ---
DATE: 10/21/2019 Medicine Progress Note SUBJECTIVE: The patient is now on clear liquid diet. She still reports having back pain, but this has been chronic ongoing for the last several months. Imaging study shows some osteoarthritis. The patient refused to work with physical therapy. PHYSICAL EXAMINATION: VITAL SIGNS: Temperature is 97.3, pulse 107, respiratory rate is 18, blood pressure 144/72, and pulse ox 94% on 2 L nasal cannula. GENERAL: Not in acute distress. Alert and oriented x3. Cooperative on examination. HEENT: Head; normocephalic, atraumatic. Eyes; pupils are equal, round, and reactive to light bilaterally. Extraocular movements intact bilaterally. Throat; no evidence of erythema or exudates in the posterior pharynx. Has poor dentition. NECK: Supple. Good range of motion. PULMONARY: Clear to auscultation bilaterally. No wheezing, no rales, no rhonchi, no crackles appreciated. CARDIOVASCULAR: Positive S1 and S2. No murmurs, rubs, or gallops appreciated. ABDOMEN: Soft, nondistended, and nontender to palpation. Bowel sounds present. MUSCULOSKELETAL: Strength is 5/5 throughout. No evidence of any muscle deficits on examination. No weakness appreciated. NEUROLOGIC: Cranial nerves II through XII grossly intact. No evidence of any neurological deficits on exam. SKIN: Intact. Warm to touch. Good cap refill. PSYCHIATRIC: Normal affect and mood. EXTREMITIES: No edema. Good range of motion throughout. LABORATORY FINDINGS: Show white count 8.6, hemoglobin 9.9, hematocrit is 29.9, and platelets of 231. Chemistry; sodium 144, potassium 3.8, chloride 118, bicarb 16, anion gap of 13, BUN is 20, creatinine is 1, glucose is 120, and calcium is 8.7. C. difficile toxin was negative. MICROBIOLOGY: Urine culture, Klebsiella pneumoniae. Blood cultures, no growth to date. IMAGING STUDIES: CTA abdomen and pelvis showed interval improvement seen in the colonic wall thickening. No bowel obstruction. IMPRESSION: 1. Sepsis with hypotension, likely secondary to urinary tract infection with pancolitis, improving. 2. Urinary tract infection. 3. Pancolitis. 4. Upper gastrointestinal bleed, status post EGD performed on 10/20/2019, that shows distal esophagitis, moderate-sized hiatal hernia, gastritis and gastric ulcer with multiple 1 cm size antrum, bright red blood crater and required some epinephrine. 5. Acute kidney injury. 6. Chronic back pain. PLAN: At this time, antibiotics were rearranged by ID. Based on the patient's urine culture. Blood cultures no growth to date. Her vital signs are much more stable now. In terms of her abdominal pain, it is improved. Her pain is mainly from her back that has been ongoing for the last several months. She does show some significant osteoarthritis in which she must see a pain specialist as well as Orthopedics as an outpatient. As for her hemoglobin, it is stable. Continue with Protonix and Carafate. Renal function improved. I did review the CT of the abdomen and pelvis, shows no evidence of any stenosis. Discontinue IV TPN. Continue with clear liquid diet and encourage. She refused PT and OT today in which I told that she must work with PT and OT in order to get her stronger. Discontinue Dilaudid. Add Dora. MD CATHIE Chan/JERRY /[id number]
[2019-10-21] MEDS ORDERED: LISINOPRIL 10 MG TAB PO SCH (17:00)
--- NOTE | 2019-10-21 19:00 | NUR ---
Report and walking rounds completed, Patient in bed. Call light within reach. No issues or concerns at this time. Will continue to monitor.
--- NOTE | 2019-10-21 19:24 | NUR ---
report given to oncoming nurse, pt stable at this time.
[2019-10-21] MEDS: LISINOPRIL 20 MG TAB PO SCH (21:00)
[2019-10-22] VITALS (9 sets, daily range): BP systolic 136–183; BP diastolic 63–92
[2019-10-22] MEDS: METOCLOPRAMIDE HCL 10 MG/2ML VIAL IV SCH ×4 (00:28→16:30)
[2019-10-22] MEDS: PANTOPRAZOL 40MG/SOD CHL 0.9% 50 ML IV SCH ×3 (00:28→11:00)
[2019-10-22] MEDS: OCTREOTIDE ACETATE 500 MCG in SODIUM CHLORIDE 0.9% 250ML 249 ML IV SCH (03:18)
[2019-10-22] MEDS: ONDANSETRON HCL INJ 2MG/ML 2ML 2 MG/ML VIAL IV PRN (03:18)
[2019-10-22] MEDS: HYDROCODONE/APAP 10MG-325MG TAB PO PRN ×4 (03:18→22:04)
[2019-10-22] MEDS: METRONIDAZOLE 500MG/NS 100ML 100 ML IV SCH ×3 (05:36→21:05)
[2019-10-22] MEDS: CHLORDIAZEPOXIDE/CLIDINIUM 1 CAP PO SCH ×2 (07:30→11:30)
[2019-10-22] MEDS: SUCRALFATE 1 GM TAB PO SCH ×4 (07:30→20:57)
[2019-10-22] MEDS: METOPROLOL SUCCINATE 25 MG TAB XL PO SCH (09:00)
[2019-10-22] MEDS: LIDOCAINE 4% PATCH TP SCH (09:00)
[2019-10-22] MEDS: LISINOPRIL 20 MG TAB PO SCH ×2 (09:00→20:57)
[2019-10-22] MEDS: NICOTINE 14 MG/EA PATCH TOP SCH (09:00)
--- NOTE | 2019-10-22 12:00 | NUR ---
DC MIRZA BY ORDER 500 ML URINE IN THE BAG
--- NOTE | 2019-10-22 14:36 | NUR ---
SPOKE WITH PT AND LET HER KNOW ABOUT SNF ORDER WHAT IT IS AND WHOM IS IN NETWORK, SHE SIGNED CHOICE FOR [facility] AND SIGNED A IMM LETTER, FILED IN BOTH IN CHART AND LEFT COPIES OF EACH IN ROOM WITH PT.
--- NOTE | 2019-10-22 14:40 | NUR ---
FAXED CLINICALS, COMPLETED RTF AND PASRR FOR REFERRAL.
--- NOTE | 2019-10-22 15:22 | Progress Note ---
DATE: 10/22/2019 Medicine Progress Note SUBJECTIVE: The patient finally worked with physical therapy. She is max assist. She does need a longterm facility. No overnight events. PHYSICAL EXAMINATION: VITAL SIGNS: Temperature is 97.3, pulse is 83, respiratory rate 16, blood pressure is 150/75, pulse 96% on 2 L nasal cannula, which we are trying to wean off. GENERAL: Not in acute distress. Alert and oriented x3. Cooperative on examination. HEENT: Head; normocephalic, atraumatic. Eyes; pupils are equal, round, and reactive to light bilaterally. Extraocular movements intact bilaterally. Throat; no evidence of erythema or exudates in the posterior pharynx. Has poor dentition. NECK: Supple. Good range of motion. PULMONARY: Clear to auscultation bilaterally. No wheezing, no rales, no rhonchi, no crackles appreciated. CARDIOVASCULAR: Positive S1 and S2. No murmurs, rubs, or gallops appreciated. ABDOMEN: Soft, nondistended, and nontender to palpation. Bowel sounds present. MUSCULOSKELETAL: Strength is 5/5 throughout. No evidence of any muscle deficits on examination. No weakness appreciated. NEUROLOGIC: Cranial nerves 2 through 12 grossly intact. No evidence of any neurological deficits on exam. SKIN: Intact. Warm to touch. Good cap refill. PSYCHIATRIC: Normal affect and mood. EXTREMITIES: No edema. Good range of motion throughout. LABORATORY DATA: CBC stable. Chemistry; reviewed, stable. IMPRESSION: 1. Sepsis with hypotension secondary to urinary tract infection with pancolitis-resolved. 2. Urinary tract infection. 3. Pancolitis. 4. Upper gastrointestinal bleed status post EGD performed on 10/20/2019, that shows distal esophagitis, mild moderate-sized hiatal hernia, gastritis, and gastric ulcer with multiple 1 cm antrum, bright red blood crater and required some epinephrine. 5. Acute kidney injury. 6. Chronic back pain. PLAN: At this time, continue with IV antibiotics. Up on discharge, the patient will be on oral antibiotics to longterm facility. Vital signs are stable. As for her back pain, this is evidence of osteoarthritis. She does need to see a pain specialist in Orthopedic as an outpatient. Continue with pain control. Hemoglobin is stable. Continue with Carafate and Protonix. GI is following. Otherwise, she wants to advance her diet. The patient will go ahead and advance to regular diet. Remove Dalal. Wean off oxygen. Work on longterm facility. Continue working with PT and OT. Hold anticoagulation due to recent GI bleed. MD CATHIE Chan/JERRY /[id number]
--- NOTE | 2019-10-22 16:00 | NUR ---
PT VOIDED AFTER MIRZA
[2019-10-22] MEDS: PANTOPRAZOLE SOD 40 MG TABEC PO SCH (16:30)
[2019-10-22] MEDS: CEFDINIR 300 MG CAP PO SCH (16:30)
--- NOTE | 2019-10-22 18:26 | NUR ---
PHYSICAL EXAMINATION: VITAL SIGNS: Temperature is 97.3, pulse is 83, respiratory rate 16, blood pressure is 150/75, pulse 96% on 2 L nasal cannula, which we are trying to wean off. GENERAL: Not in acute distress. Alert and oriented x3. Cooperative on examination. HEENT: Head; normocephalic, atraumatic. Eyes; pupils are equal, round, and reactive to light bilaterally. Extraocular movements intact bilaterally. Throat; no evidence of erythema or exudates in the posterior pharynx. Has poor dentition. NECK: Supple. Good range of motion. PULMONARY: Clear to auscultation bilaterally. No wheezing, no rales, no rhonchi, no crackles appreciated. CARDIOVASCULAR: Positive S1 and S2. No murmurs, rubs, or gallops appreciated. ABDOMEN: Soft, nondistended, and nontender to palpation. Bowel sounds present. MUSCULOSKELETAL: Strength is 5/5 throughout. No evidence of any muscle deficits on examination. No weakness appreciated. NEUROLOGIC: Cranial nerves 2 through 12 grossly intact. No evidence of any neurological deficits on exam. SKIN: Intact. Warm to touch. Good cap refill. PSYCHIATRIC: Normal affect and mood. EXTREMITIES: No edema. Good range of motion throughout. LABORATORY DATA: CBC stable. Chemistry; reviewed, stable. [id number]
--- NOTE | 2019-10-22 19:04 | NUR ---
PT RESTING ON BED BED SIDE REPORT GIVEN TO ONCOMING NURSE
--- NOTE | 2019-10-22 20:55 | Progress Note ---
DATE: SUBJECTIVE: Ms. Roque is feeling better. She still has some abdominal pain, but it is better. REVIEW OF SYSTEMS: HEENT: Negative. PULMONARY: Negative. CARDIAC: Negative. OBJECTIVE: GENERAL: She is currently alert, oriented, does not seem in acute distress. VITAL SIGNS: Stable, currently afebrile. HEENT: She is not icteric. NECK: Supple. CHEST: Clear bilateral. HEART: S1, S2. No S3, S4, or murmurs. ABDOMEN: Soft. Bowel sounds present. No tenderness. EXTREMITIES: No edema. SKIN: No rash. IMPRESSION: 1. Sepsis, present on admission secondary to colitis. 2. Urinary tract infection. 3. Anemia. 4. Concern about peripheral vascular disease and atherosclerotic disease. From Infectious Disease point of view, the patient is doing better. She is currently on Omnicef and metronidazole. Plan on 14 days of current regimen. We will follow. MD CATY Carrizales/JERRY /[id number]
[2019-10-23] MEDS: METOCLOPRAMIDE HCL 10 MG/2ML VIAL IV SCH ×3 (00:30→12:00)
[2019-10-23] MEDS ORDERED: EVISTA60 MG PO (01:48)
[2019-10-23] MEDS ORDERED: NITROSTAT0.4 MG SL (01:48)
[2019-10-23] MEDS ORDERED: ELIQUIS2.5 MG PO (01:48)
[2019-10-23] MEDS ORDERED: AMLODIPINE BESYL5 MG PO (01:48)
[2019-10-23] MEDS ORDERED: SUCRALFATE1 GM PO (01:48)
[2019-10-23] MEDS ORDERED: ATORVASTATIN CA20 MG PO (01:48)
[2019-10-23] MEDS ORDERED: NIFEDIPINE ER30 M1 PO (01:48)
[2019-10-23] MEDS ORDERED: ULTRAM 50MG50 MG PO (01:48)
[2019-10-23] MEDS: ONDANSETRON HCL INJ 2MG/ML 2ML 2 MG/ML VIAL IV PRN (04:37)
[2019-10-23] MEDS: HYDROCODONE/APAP 10MG-325MG TAB PO PRN ×2 (04:37→09:59)
[2019-10-23 04:47] LABS: BASOPHILS % 0.3 % (0.0-1.0); EOSINOPHILS # (AUTO) 0.5 (0.0-0.4); EOSINOPHILS % 6.8 % (0.0-6.0); HEMATOCRIT 28.6 % (34.2-44.1); HEMOGLOBIN 9.7 g/dL (12.0-16.0); LYMPHOCYTES # (AUTO) 1.4 (1.0-3.2); LYMPHOCYTES % 19.1 % (18.0-39.1); MEAN CORPUSCULAR HEMOGLOBIN 30.2 pg (28-32); MEAN CORPUSCULAR HGB CONC 33.9 g/dL (31-35); MEAN CORPUSCULAR VOLUME 89.1 fL (81-99); MONOCYTES # (AUTO) 0.4 (0.2-0.8); MONOCYTES % 5.5 % (4.4-11.3); NEUTROPHILS % 67.5 % (38.7-80.0); PLATELET COUNT 256 x10e3/uL (140-360); RED BLOOD COUNT 3.21 x10e6/uL (3.6-5.1)
[2019-10-23 05:04] LABS: ANION GAP 11.4 mmol/L (8-16); CALCIUM 8.8 mg/dL (8.4-10.2); CREATININE, SERUM 0.98 mg/dL (0.57-1.11); POTASSIUM 3.4 mmol/L (3.5-5.1)
[2019-10-23] MEDS: METRONIDAZOLE 500MG/NS 100ML 100 ML IV SCH (05:08)
[2019-10-23 05:51] VITALS: BP 155/81
--- NOTE | 2019-10-23 07:00 | NUR ---
RCD PT AT BED PT IS ALERT AND ORIENTED PT RESTING ON BED IV PATENT BY SALINE FLUSH BED LOW AND LOCKED CALL LIGHT IN REACH
[2019-10-23] MEDS: SUCRALFATE 1 GM TAB PO SCH ×2 (07:30→11:30)
[2019-10-23 08:00] VITALS: BP 167/87
[2019-10-23 08:33] VITALS: BP 167/87
[2019-10-23] MEDS: CEFDINIR 300 MG CAP PO SCH (09:00)
[2019-10-23] MEDS: LISINOPRIL 20 MG TAB PO SCH (09:00)
[2019-10-23] MEDS: METOPROLOL SUCCINATE 25 MG TAB XL PO SCH (09:00)
[2019-10-23] MEDS: PANTOPRAZOLE SOD 40 MG TABEC PO SCH (09:00)
[2019-10-23] MEDS: NICOTINE 14 MG/EA PATCH TOP SCH (09:00)
[2019-10-23] MEDS: LIDOCAINE 4% PATCH TP SCH (09:00)
--- NOTE | 2019-10-23 11:28 | NUR ---
PAGED DR AWAD TO GET THE DISCHARGE ORDER HE SAID HE COMING TO SEE THE PT
--- NOTE | 2019-10-23 11:54 | NUR ---
[facility] FACILITY DISCHARGE INFORMATION PATIENT HAS BEEN ACCEPTED TO: NAME: SANDE[facility] ADDRESS:[id number] ACCEPTING MD: VICENTE ROOM:161 NURSE CALL REPORT TO: IMM SIGNED AND OBTAINED (if applicable): YES THE FOLLOWING DOCUMENTS MUST ACCOMPANY PATIENT FOR TRANSFER: COPIED CHART: PACKET
[2019-10-23 12:00] VITALS: BP 148/78
--- NOTE | 2019-10-23 13:12 | NUR ---
REPORT GIVEN TO PAM ZARATE AND NOTIFIED DECORATOR HAND TO CALL AMBULANCE
--- NOTE | 2019-10-23 13:30 | NUR ---
DC PERIPHERAL IV AND INTERNAL JUGULAR ,NO SIGNS OF BLEEDING CATHETER INTACT AND SECURED WITH TAPES
--- NOTE | 2019-10-23 14:28 | NUR ---
Follow up Note RD Recommendation(s) for Physician: -Continue GI soft diet -Encourage PO intake Plan of Care: RD following, monitoring for tolerance and adequacy Nutrition reason for involvement: follow up RD Assessment (10/23/19) Follow up. Pt is no longer on TPN and is now on a GI soft diet. Pt reports eating <50% of meals. Per documentation, pt has been consuming 25-50% of meals since 10/21. No N/V/D/C reported. Offered pt nutrition supplements due to decreased PO intake, but pt was not interested. Will continue to monitor. (10/20/19) Pt is a 69 year old female admitted with septic shock, UTI, and renal injury. It is also noted that pt has colitis; therefore, pt is NPO and MD had ordered TPN. Pt stated she typically ate 50% of meals prior to admission. No wt loss reported and pt mentioned she usually weighs 125 lbs. However, pt currently has a wt of 138 lbs in chart. No N/V or chewing/swallowing issues at this time. Will continue to monitor. Principal Problems/Diagnoses: septic shock, UTI, and renal injury PMH: Hypertension, hyperlipidemia. I/O: GI: last recorded BM 10/21 x 2 Skin: intact Labs: (10/23/19) Na 135 K 3.4, (10/20/19) K 3.1, Glu 148 Meds: protonix, metroprolol, zofran, hydralazine, NaCl Ht: 64 inches Wt: 138 lbs BMI: 23.7 kg/m2 IBW: 120 lbs Malnutrition Evaluation (10/20/19) The patient does not meet criteria for a specified degree of malnutrition at this time. Will re-evaluate at follow-up as appropriate. Energy intake: Pt reports eating <50% of meals during admission Weight loss: No weight loss reported Fat loss: no loss identified Muscle loss: no loss identified Supporting Evidence: Fluid accumulation: no accumulation identified per MD note Functional Status: unable to evaluate Nutrition Prescription (Diet Order): GI soft diet Estimated Nutritional Needs: 8694-8488 calories/day (25-35 kcal/kg CBW) 63-94 g protein/day (1-1.5 g pro/kg CBW) Diet Adequacy: Not meeting protein needs, not meeting calorie needs Tolerance: Tolerating PO Diet Education Needs Assessment: RD is available for diet education as needed Nutrition Care Level: moderate Nutrition Diagnosis: Inadequate energy intake related to decreased ability to consume sufficient energy secondary to decreased appetite as evidenced by pt eating <50 of meals. Goal: Patient will meet 75-100% of estimated needs by follow up Progress: not progressing Interventions: - fiber -modified diet Monitoring/Evaluation: -Total energy intake, Total protein intake, Modified diet, Weight change, Signed: Lexii Luong RD, LD
--- NOTE | 2019-10-23 14:30 | NUR ---
PATIENT DIS[facility]GED [facility]
--- NOTE | 2019-10-24 19:16 | Discharge Summary ---
FINAL DISCHARGE DIAGNOSES: 1. Sepsis with hypotension secondary to urinary tract infection and pancolitis-resolved. 2. Urinary tract infection. 3. Pancolitis-resolved. 4. Upper gastrointestinal bleed, status post EGD on 10/20/2019, that showed distal esophagitis, [id number] sized hiatal hernia with gastritis, gastric ulcer with multiple 1 cm antrum with bright red blood crater that required some epinephrine and hemostats. 5. Acute kidney injury, resolved. 6. Chronic back pain. CONSULTANTS: ID, Pulmonary Critical Care, and GI. PHYSICAL EXAMINATION: VITAL SIGNS: Temperature is 97, pulse 80, respiratory rate is 17, blood pressure is 148/70, and pulse ox 98% on room air. LABORATORY DATA: Labs show white count 7.3, hemoglobin on admission was 7.6, now on discharge was 9.7 after blood transfusion, hematocrit is 28, and platelets is 256. Blood gas on admission; pH of 7.2, pCO2 of 30, PaO2 of 65, and bicarb is 14. Coagulation; PT 16, INR 1.2, and PTT 21.7. Chemistry; sodium 135, potassium 3.4, chloride 106, bicarb 21, anion gap of 11, BUN is 15, creatinine is 0.98, glucose is 93, and calcium is 8.8. Total bilirubin is 0.5, AST is 26, and ALT 35. CK was found to be 60. Troponins were all negative. BNP is 70. Albumin is 2.8. Urinalysis negative. Stool occult blood was positive. C. difficile toxin was negative. MICROBIOLOGY: Urine culture shows to be Klebsiella. Blood cultures were negative. IMAGING STUDIES: Chest x-ray on 10/18/2019, shows no acute thoracic abnormality. CT of the brain shows no acute posttraumatic intracranial abnormality. Specifically, no hemorrhage. 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 CT abdomen and pelvis shows evidence of mild pancolitis. No free fluid, free air, or abscess in the abdomen or pelvis. Hip x-ray just shows evidence of diffuse osteopenia and osteoarthritis. CTA abdomen and pelvis, no bowel obstruction. 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 I discussed this with the patient and she verbalized understanding. Iliac artery, SMA and ARIANA major branches are patent. HOSPITAL COURSE: This is a 69-year-old female, very poor historian, came into the ED, very confused, hypotensive and concerns for underlying GI bleed. The patient had several bouts of black tarry stool, prompting a central line, IV pressors, and sent to the ICU. Pulmonary Critical Care was consulted. The patient was found to be anemic, requiring blood transfusion. GI was consulted. The patient underwent EGD on 10/20/2019, that showed a distal esophagitis and mild moderate-sized hiatal hernia with gastritis, gastric ulcer with multiple 1 cm antrum with bright red blood crater, requiring some epinephrine. The patient's hemoglobin maintained stable after the EGD procedure. The patient was on Eliquis for an unknown etiology and unknown reason why she is on Eliquis. I discussed this with the patient and the family, and they are not aware of why she is on Eliquis. Despite that, because of her recent GI bleed that requiring blood transfusion, I discussed this case with GI and recommend holding the Eliquis at this time for at least a few weeks. She was advised to follow up with her primary doctor, who prescribed the Eliquis in the next 1 to 2 weeks. She will need to hold on for at least 1 to 2 weeks to avoid any worsening GI bleed. The patient was then also on oral Protonix and Carafate for the underlying EGD findings. She was also found to have pancolitis seen on CT imaging, requiring IV antibiotic therapy. ID was consulted. The patient was discharged on oral antibiotics as well. She was found to have a urinary tract infection, treated accordingly with IV antibiotics and discharged on oral antibiotics. She also had acute kidney injury secondary to prerenal azotemia from dehydration, resolved with IV fluid hydration. The patient was initially on some pressors in the ICU, but then it was discontinued and the patient did extremely well and then transitioned to the medical floor. The patient continued to complain of chronic back pain with imaging studies shows evidence of osteoarthritis. She was advised to follow up with an orthopedic physician or a neurosurgeon as an outpatient. Pain controlled at this time. The patient was cleared for discharge by all consultants including GI, Pulmonary Critical Care, and ID. The patient was discharged on oral antibiotics as well as other medications as described above. On the day of discharge, vital signs were stable, labs reviewed and stable. The patient is seen and evaluated, and examined thoroughly on the day of discharge. No other complaints. The patient verbalized understanding and agreed to plan of care to follow up accordingly as an outpatient with the primary care physician in 1 week, GI specialist in 2 weeks to get the final pathology results as well as the public health staff nurse as an outpatient as well as the PCP and why the patient is on Eliquis. Currently, family does not know why she is on Eliquis as well as the patient does not know either. We advised just to hold it for about a week or 2 until her symptoms and her GI issues resolve and then she was advised to restart based on recommendations by the person who prescribed the Eliquis. The patient's family verbalized understanding and agrees to plan of care as described. MEDICATIONS: See med reconciliation form. DISPOSITION: Home. CONDITION: Stable. DIET: Heart healthy. In the event of any worsening symptoms, the patient was advised to come back to the ED for further evaluation. Discharge summary took greater than 35 minutes. MD CATHIE Chan/JERRY /[id number]
--- NOTE | 2019-11-06 14:17 | Diagnostic Imaging Report ---
EXAMINATION: CHEST SINGLE (PORTABLE) INDICATION: Shortness of breath COMPARISON: Chest radiograph 10/18/2019 FINDINGS: LINES/TUBES:Right IJ central venous catheter terminates in the superior vena cava. EKG leads overlie the chest. LUNGS:The lungs are well-inflated. No focal consolidation or pulmonary edema. Unchanged left lower lobe calcified granuloma. PLEURA:No pleural effusion or pneumothorax. MEDIASTINUM:The cardiomediastinal silhouette appears unchanged in size and shape. Atherosclerotic calcifications of the thoracic aorta. BONES/SOFT TISSUES:No acute osseous injury. ABDOMEN:No free air under the diaphragm. IMPRESSION: No focal pneumonia or pulmonary edema. Cardiomegaly. Signed by: Davey Clarke MD on 11/06/2019 2:14 PM
== END 2019-10-23 14:33 | DRG 871 ==
LOC: ER 10:47 → ERHOLD 14:38 → ICU 16:57 → MED/SURG2 10-21 01:49
PROVIDERS: ADMIT Internal Medicine; ATTEND Internal Medicine
PROC: 30233K1 Transfusion of Nonautologous Frozen Plasma into Peripheral Vein, Percutaneous Approach (ICD-10-PCS; 2019-10-18)
PROC: 30233N1 Transfusion of Nonautologous Red Blood Cells into Peripheral Vein, Percutaneous Approach (ICD-10-PCS; 2019-10-18)
PROC: 0D578ZZ Destruction of Stomach, Pylorus, Via Natural or Artificial Opening Endoscopic (ICD-10-PCS; 2019-10-20)
PROC: 3E0G8GC Introduction of Other Therapeutic Substance into Upper GI, Via Natural or Artificial Opening Endoscopic (ICD-10-PCS; principal; 2019-10-20 17:15)
DX: A41.9 Sepsis, unspecified organism (principal); R65.21 Severe sepsis with septic shock; K25.4 Chronic or unspecified gastric ulcer with hemorrhage; R57.1 Hypovolemic shock; N17.9 Acute kidney failure, unspecified; N39.0 Urinary tract infection, site not specified; K51.00 Ulcerative (chronic) pancolitis without complications; E86.1 Hypovolemia; I95.9 Hypotension, unspecified; K44.9 Diaphragmatic hernia without obstruction or gangrene; K20.9 Esophagitis, unspecified; B96.1 Klebsiella pneumoniae [K. pneumoniae] as the cause of diseases classified elsewhere; I25.2 Old myocardial infarction; G89.29 Other chronic pain
CPT/HCPCS: 36415; 36600; 43255; 70450; 71045; 74174; 74177; 80048; 80053; 80162; 81001; 82270; 82550; 82553; 82805; 82948; 83605; 83880; 84484; 85014; 85018; 85025; 85610; 85730; 86850; 86900; 86920; 87040; 87086; 87186; 87493; 93005; 99285; J0171; J0360; J0696; J1170; J2250; J2270; J2353; J2405; J2543; J2765; J3010; J3430; J3480; J7030; J7042; J7050; P9016; P9017; Q9967

== ENCOUNTER 2021-12-26 11:18 | Inpatient (IN) | payer MEDICARE ==
[~2021-12-26] VITALS: Ht 167.6 cm; Wt 79.4 kg
[~2021-12-26 11:18] MED LIST changes: +AMLODIPINE BESYL5 MG PO; +ATORVASTATIN CA20 MG PO; +ELIQUIS2.5 MG PO; +EVISTA60 MG PO; +NIFEDIPINE ER30 M1 PO; +NITROSTAT0.4 MG SL; +SUCRALFATE1 GM PO; +ULTRAM 50MG50 MG PO
[2021-12-26] MEDS ORDERED: SODIUM CHLORIDE 0.9% 1000ML 1,000 ML IV STA (11:54)
[2021-12-26] MEDS ORDERED: CEFEPIME 2 GM in SODIUM CHLORIDE 0.9% 100 ML IV ONE (12:15)
[2021-12-26 12:18] LABS: BASOPHILS % 0.4 % (0.0-1.0); EOSINOPHILS % 0.1 % (0.0-6.0); HEMATOCRIT 45.4 % (34.2-44.1); LYMPHOCYTES # (AUTO) 0.8 (1.0-3.2); LYMPHOCYTES % 11.3 % (18.0-39.1); MEAN CORPUSCULAR HEMOGLOBIN 29.5 pg (28-32); MEAN CORPUSCULAR VOLUME 89.4 fL (81-99); MONOCYTES # (AUTO) 0.3 (0.2-0.8); MONOCYTES % 3.9 % (4.4-11.3); PLATELET COUNT 265 x10e3/uL (140-360); RED BLOOD COUNT 5.08 x10e6/uL (3.6-5.1); RED CELL DISTRIBUTION WIDTH 13.2 % (11.7-14.4)
[2021-12-26 12:24] LABS: AMPHETAMINES SCREEN,URINE NEGATIVE (NEGATIVE); BENZODIAZEPINES SCREEN,URINE NEGATIVE (NEGATIVE); CLARITY,URINE TURBID (CLEAR); COLOR,URINE YELLOW (YELLOW); LEUKOCYTE ESTERASE ,URINE TRACE (NEGATIVE); NITRITE,URINE POSITIVE (NEGATIVE); PHENCYCLIDINE SCREEN,URINE NEGATIVE (NEGATIVE); PROTEIN,URINE DIPSTICK 1+ (NEGATIVE)
[2021-12-26 12:25] LABS: KETONES,URINE NEGATIVE (NEGATIVE); URINE UROBILINOGEN 0.2 mg/dL (0.2 - 1)
[2021-12-26 12:27] LABS: INR 1.06; PROTHROMBIN TIME 14.5 seconds (11.9-14.5)
[2021-12-26] MEDS ORDERED: PANTOPRAZOLE SO40 MG PO (12:29)
[2021-12-26] MEDS ORDERED: ELIQUIS2.5 MG PO (12:29)
[2021-12-26] MEDS ORDERED: AMLODIPINE BESY10 MG PO (12:29)
[2021-12-26] MEDS ORDERED: LISINOPRIL10 MG PO (12:29)
[2021-12-26] MEDS ORDERED: TOPIRAMATE25 MG PO (12:29)
[2021-12-26 12:31] LABS: BACTERIA,URINE MANY /HPF; EPITHELIAL CELLS,URINE FEW /LPF; RBC,URINE 0-5 /HPF (0-5); WBC,URINE (MAN) >50 /HPF (0-5)
[2021-12-26 12:35] LABS: ALBUMIN 4.1 g/dL (3.5-5.0); ALBUMIN/GLOBULIN RATIO 1.2 (0.8-2.0); ANION GAP 16.5 mmol/L (8-16); CALCIUM 9.8 mg/dL (8.4-10.2); CREATININE, SERUM 1.45 mg/dL (0.57-1.11); MAGNESIUM 1.9 MG/DL (1.3-2.1); POTASSIUM 3.5 mmol/L (3.5-5.1)
[2021-12-26 12:39] LABS: SALICYLATE < 5.0 mg/dL (0-30)
[2021-12-26 12:41] LABS: CREATINE KINASE MB 4.1 ng/mL (0-5.0)
[2021-12-26] MEDS ORDERED: Vancomycin IV 1 GM in SODIUM CHLORIDE 0.9% 250ML 250 ML IV ONE (14:15)
[2021-12-26] MEDS ORDERED: ONDANSETRON HCL INJ 2MG/ML 2ML 2 MG/ML VIAL IV PRN (14:30)
[2021-12-26] MEDS: SODIUM CHLORIDE 0.9% 1000ML 1,000 ML IV SCH (14:58)
[2021-12-26] MEDS: ACETAMINOPHEN 325 MG TAB PO PRN (15:07)
[2021-12-26 17:10] VITALS: BP 166/87
[2021-12-26 17:39] VITALS: BP 166/87
[2021-12-26 19:58] VITALS: BP 141/66
[2021-12-26 20:36] LABS: CREATINE KINASE MB 3.5 ng/mL (0-5.0)
[2021-12-26 21:00] VITALS: BP 141/66
[2021-12-26] MEDS: CEFEPIME 1 GM in SODIUM CHLORIDE 0.9% 50ML 50 ML IV SCH (21:03)
[2021-12-27] MEDS: SODIUM CHLORIDE 0.9% 1000ML 1,000 ML IV SCH ×3 (00:15→20:43)
[2021-12-27] MEDS: ACETAMINOPHEN 325 MG TAB PO PRN ×2 (00:15→09:09)
[2021-12-27] MEDS: NIFEDIPINE CR 30 MG TAB PO SCH ×2 (01:00→09:08)
[2021-12-27 04:00] VITALS: BP 122/66
[2021-12-27 05:28] LABS: EOSINOPHILS # (AUTO) 0.1 (0.0-0.4); HEMATOCRIT 41.2 % (34.2-44.1); LYMPHOCYTES # (AUTO) 1.5 (1.0-3.2); LYMPHOCYTES % 36.7 % (18.0-39.1); MEAN CORPUSCULAR HEMOGLOBIN 29.7 pg (28-32); MEAN CORPUSCULAR VOLUME 87.5 fL (81-99); MONOCYTES # (AUTO) 0.3 (0.2-0.8); MONOCYTES % 7.9 % (4.4-11.3); NEUTROPHILS # (AUTO) 2.1 (2.1-6.9); NEUTROPHILS % 51.2 % (38.7-80.0); PLATELET COUNT 242 x10e3/uL (140-360); RED BLOOD COUNT 4.71 x10e6/uL (3.6-5.1); RED CELL DISTRIBUTION WIDTH 13.3 % (11.7-14.4)
[2021-12-27 05:59] LABS: ALBUMIN 3.4 g/dL (3.5-5.0); ALBUMIN/GLOBULIN RATIO 1.3 (0.8-2.0); ANION GAP 11.4 mmol/L (8-16); CALCIUM 8.9 mg/dL (8.4-10.2); CHOL/HDL RATIO 5.6 (3.0-3.6); CREATININE, SERUM 1.15 mg/dL (0.57-1.11); POTASSIUM 3.4 mmol/L (3.5-5.1)
[2021-12-27 06:28] LABS: CREATINE KINASE MB 3.9 ng/mL (0-5.0)
[2021-12-27 07:50] VITALS: BP 153/71
[2021-12-27] MEDS ORDERED: PANTOPRAZOLE SOD 40 MG TABEC PO SCH (09:00)
[2021-12-27] MEDS: TOPIRAMATE 25 MG TAB PO SCH (09:08)
[2021-12-27] MEDS: SUCRALFATE 1 GM TAB PO SCH ×3 (09:08→20:43)
[2021-12-27] MEDS: CEFEPIME 1 GM in SODIUM CHLORIDE 0.9% 50ML 50 ML IV SCH ×2 (09:08→20:43)
[2021-12-27] MEDS: APIXAB 2.5 MG TABLET PO SCH ×2 (09:08→16:59)
[2021-12-27] MEDS: METOPROLOL SUCCINATE 25 MG TAB XL PO SCH (09:09)
[2021-12-27] MEDS ORDERED: NITROGLYCERIN 0.4 MG SUBL SL PRN (11:45)
[2021-12-27] MEDS ORDERED: POTASSIUM CHLORIDE 20 MEQ TAB CR PO ONE ×2 (12:00→17:00)
[2021-12-27 14:41] LABS: CREATINE KINASE MB 4.2 ng/mL (0-5.0)
[2021-12-27] MEDS: LISINOPRIL 20 MG TAB PO SCH (18:03)
[2021-12-27 20:06] VITALS: BP 137/68
[2021-12-27 20:32] VITALS: BP 137/68
[2021-12-27] MEDS: ATORVASTATIN 40 MG TAB PO SCH (20:43)
[2021-12-28] VITALS (7 sets, daily range): BP systolic 110–169; BP diastolic 79–88
[2021-12-28 05:23] LABS: BASOPHILS # (AUTO) 0.1 (0.0-0.1); BASOPHILS % 1.4 % (0.0-1.0); EOSINOPHILS # (AUTO) 0.2 (0.0-0.4); EOSINOPHILS % 3.4 % (0.0-6.0); HEMATOCRIT 40.9 % (34.2-44.1); HEMOGLOBIN 13.7 g/dL (12.0-16.0); LYMPHOCYTES # (AUTO) 1.4 (1.0-3.2); MEAN CORPUSCULAR HGB CONC 33.5 g/dL (31-35); MEAN CORPUSCULAR VOLUME 89.7 fL (81-99); MONOCYTES # (AUTO) 0.3 (0.2-0.8); MONOCYTES % 7.8 % (4.4-11.3); NEUTROPHILS # (AUTO) 2.4 (2.1-6.9); NEUTROPHILS % 56.2 % (38.7-80.0); PLATELET COUNT 241 x10e3/uL (140-360); RED BLOOD COUNT 4.56 x10e6/uL (3.6-5.1); RED CELL DISTRIBUTION WIDTH 13.3 % (11.7-14.4)
[2021-12-28 06:16] LABS: ALBUMIN 3.3 g/dL (3.5-5.0); ALBUMIN/GLOBULIN RATIO 1.2 (0.8-2.0); ANION GAP 12.2 mmol/L (8-16); CALCIUM 8.6 mg/dL (8.4-10.2); CREATININE, SERUM 0.97 mg/dL (0.57-1.11); POTASSIUM 3.2 mmol/L (3.5-5.1)
[2021-12-28] MEDS: SODIUM CHLORIDE 0.9% 1000ML 1,000 ML IV SCH ×2 (06:16→16:29)
[2021-12-28] MEDS: ACETAMINOPHEN 325 MG TAB PO PRN ×2 (06:27→10:51)
[2021-12-28 06:28] LABS: CHOL/HDL RATIO 5.7 (3.0-3.6); MAGNESIUM 1.7 MG/DL (1.3-2.1); PHOSPHORUS 1.7 MG/DL (2.3-4.7)
[2021-12-28] MEDS: METOPROLOL SUCCINATE 25 MG TAB XL PO SCH (08:21)
[2021-12-28] MEDS: TOPIRAMATE 25 MG TAB PO SCH (08:21)
[2021-12-28] MEDS: LISINOPRIL 20 MG TAB PO SCH ×2 (08:21→16:29)
[2021-12-28] MEDS: CEFEPIME 1 GM in SODIUM CHLORIDE 0.9% 50ML 50 ML IV SCH ×2 (08:21→21:56)
[2021-12-28] MEDS: SUCRALFATE 1 GM TAB PO SCH ×3 (08:21→21:56)
[2021-12-28] MEDS: RALOXIFENE HCL 60 MG TAB PO SCH (08:21)
[2021-12-28] MEDS: AMLODIPINE BESYLATE 10 MG TAB PO SCH (08:21)
[2021-12-28] MEDS: APIXAB 2.5 MG TABLET PO SCH ×2 (08:21→16:28)
[2021-12-28] MEDS: TRAMADOL HCL 50 MG TAB PO PRN (14:16)
[2021-12-28] MEDS: ATORVASTATIN 40 MG TAB PO SCH (21:56)
[2021-12-29] VITALS (8 sets, daily range): BP systolic 141–173; BP diastolic 79–99
[2021-12-29] MEDS: SODIUM CHLORIDE 0.9% 1000ML 1,000 ML IV SCH ×3 (03:47→22:42)
[2021-12-29] MEDS: APIXAB 2.5 MG TABLET PO SCH ×2 (09:10→17:13)
[2021-12-29] MEDS: TOPIRAMATE 25 MG TAB PO SCH (09:10)
[2021-12-29] MEDS: METOPROLOL SUCCINATE 25 MG TAB XL PO SCH (09:10)
[2021-12-29] MEDS: CEFEPIME 1 GM in SODIUM CHLORIDE 0.9% 50ML 50 ML IV SCH ×2 (09:10→21:59)
[2021-12-29] MEDS: SUCRALFATE 1 GM TAB PO SCH ×3 (09:10→22:03)
[2021-12-29] MEDS: AMLODIPINE BESYLATE 10 MG TAB PO SCH (09:10)
[2021-12-29] MEDS: LISINOPRIL 20 MG TAB PO SCH ×2 (09:10→17:13)
[2021-12-29] MEDS: RALOXIFENE HCL 60 MG TAB PO SCH (09:10)
[2021-12-29] MEDS: TRAMADOL HCL 50 MG TAB PO PRN ×2 (09:29→22:08)
[2021-12-29] MEDS ORDERED: POTASSIUM CHLORIDE 10MEQ EA PO ONE ×2 (09:45→15:00)
[2021-12-29] MEDS ORDERED: ONDANSETRON HCL 4 MG ORAL DISINTEGRATING TAB PO PRN (09:45)
[2021-12-29] MEDS: PANTOPRAZOLE SOD 40 MG TABEC PO SCH (17:13)
[2021-12-29] MEDS: ATORVASTATIN 40 MG TAB PO SCH (22:03)
[2021-12-30] VITALS (7 sets, daily range): BP systolic 129–172; BP diastolic 65–88
[2021-12-30] MEDS: SUCRALFATE 1 GM TAB PO SCH ×3 (08:43→21:56)
[2021-12-30] MEDS: RALOXIFENE HCL 60 MG TAB PO SCH (08:43)
[2021-12-30] MEDS: PANTOPRAZOLE SOD 40 MG TABEC PO SCH ×3 (08:43→16:55)
[2021-12-30] MEDS: LISINOPRIL 20 MG TAB PO SCH ×2 (08:43→16:55)
[2021-12-30] MEDS: CEFEPIME 1 GM in SODIUM CHLORIDE 0.9% 50ML 50 ML IV SCH ×2 (08:43→21:56)
[2021-12-30] MEDS: AMLODIPINE BESYLATE 10 MG TAB PO SCH (08:43)
[2021-12-30] MEDS: TOPIRAMATE 25 MG TAB PO SCH (08:43)
[2021-12-30] MEDS: APIXAB 2.5 MG TABLET PO SCH ×2 (08:43→16:55)
[2021-12-30] MEDS: METOPROLOL SUCCINATE 25 MG TAB XL PO SCH (08:44)
[2021-12-30] MEDS ORDERED: MAGNESIUM OXID400 MG PO (09:43)
[2021-12-30] MEDS ORDERED: KEFLEX125 MG/5 M PO (09:43)
[2021-12-30] MEDS ORDERED: ONDANSETRON ODT4 MG PO (09:44)
[2021-12-30] MEDS: MIDODRINE 2.5 MG TAB PO SCH ×2 (11:05→21:56)
[2021-12-30] MEDS: TRAMADOL HCL 50 MG TAB PO PRN ×2 (11:05→22:10)
[2021-12-30] MEDS ORDERED: MIDODRINE 2.5 MG TAB PO SCH (11:30)
[2021-12-30] MEDS: SODIUM CHLORIDE 0.9% 1000ML 1,000 ML IV SCH ×2 (14:00→21:56)
[2021-12-30] MEDS: ACETAMINOPHEN 325 MG TAB PO PRN ×2 (14:34→18:35)
[2021-12-30] MEDS: ATORVASTATIN 40 MG TAB PO SCH (21:56)
[2021-12-31] VITALS: BP 138/73
[2021-12-31 04:00] VITALS: BP 159/69
[2021-12-31] MEDS: SODIUM CHLORIDE 0.9% 1000ML 1,000 ML IV SCH (05:02)
[2021-12-31] MEDS: MIDODRINE 2.5 MG TAB PO SCH (05:14)
[2021-12-31 08:14] VITALS: BP 167/88
[2021-12-31 08:21] VITALS: BP 167/88
[2021-12-31] MEDS: CEFEPIME 1 GM in SODIUM CHLORIDE 0.9% 50ML 50 ML IV SCH (08:42)
[2021-12-31] MEDS: APIXAB 2.5 MG TABLET PO SCH (08:42)
[2021-12-31] MEDS: SUCRALFATE 1 GM TAB PO SCH (08:42)
[2021-12-31] MEDS: AMLODIPINE BESYLATE 10 MG TAB PO SCH (08:43)
[2021-12-31] MEDS: TOPIRAMATE 25 MG TAB PO SCH (08:43)
[2021-12-31] MEDS: LISINOPRIL 20 MG TAB PO SCH (08:43)
[2021-12-31] MEDS: RALOXIFENE HCL 60 MG TAB PO SCH (08:43)
[2021-12-31] MEDS: PANTOPRAZOLE SOD 40 MG TABEC PO SCH (08:43)
[2021-12-31] MEDS: METOPROLOL SUCCINATE 25 MG TAB XL PO SCH (08:44)
[2021-12-31] MEDS ORDERED: MIDODRINE HCL2.5 MG PO (11:34)
[2021-12-31 11:55] VITALS: BP 156/66
== END 2021-12-31 12:05 | disposition home health service (06) | DRG 689 ==
LOC: ER 11:49 → ERHOLD 14:32 → MED/SURG3 17:10
PROVIDERS: ADMIT Internal Medicine; ATTEND Internal Medicine
DX: N39.0 Urinary tract infection, site not specified (principal); G93.41 Metabolic encephalopathy; G92.8 Other toxic encephalopathy; I50.22 Chronic systolic (congestive) heart failure; N17.9 Acute kidney failure, unspecified; M62.82 Rhabdomyolysis; I69.354 Hemiplegia and hemiparesis following cerebral infarction affecting left non-dominant side; B96.20 Unspecified Escherichia coli [E. coli] as the cause of diseases classified elsewhere; I11.0 Hypertensive heart disease with heart failure; R26.89 Other abnormalities of gait and mobility; E86.0 Dehydration; I25.2 Old myocardial infarction; I48.0 Paroxysmal atrial fibrillation; Z79.01 Long term (current) use of anticoagulants; Z95.5 Presence of coronary angioplasty implant and graft; K20.90 Esophagitis, unspecified without bleeding; Z87.11 Personal history of peptic ulcer disease; F17.200 Nicotine dependence, unspecified, uncomplicated; H54.8 Legal blindness, as defined in USA; W07.XXXA Fall from chair, initial encounter
CPT/HCPCS: 36415; 70450; 71045; 72125; 80053; 80061; 80307; 80320; 80329; 81001; 82140; 82550; 82553; 83036; 83605; 83735; 83880; 84100; 84443; 84484; 85025; 85610; 85730; 87040; 87086; 87186; 93005; 94799; 97139; 99285; J0692; J3370; J7030; J7050; U0002